=== PATIENT | male | born 1930 | race African-American/Black ===

== ENCOUNTER 2018-09-17 20:35 | Emergency (ER) | payer MEDICARE, OTHER ==
[~2018-09-17] VITALS: Ht 182.9 cm; Wt 95.3 kg
[2018-09-17 20:35] VITALS: BP 148/77
[~2018-09-17 20:35] MED LIST: AMLO2.5T5 PO; ASPI-482 PO; CHOL200074 PO; FOLI1TAB16 PO; HYDR-2761 PO; LEVO150T5 PO; LEVO25TA4 PO; MULT-658 PO; OMEP40CA5 PO; SIMV10TA3 PO
[2018-09-17 21:38] LABS: BASO % 1 % (0-3); EOS # 0.2 x10^3/uL (0.0-0.7); EOS % 4 % (0-3); HEMATOCRIT 41.6 % (39.0-53.0); HEMOGLOBIN 14.1 g/dL (13.0-17.5); LYMPH # 2.4 x10^3/uL (1.0-4.8); LYMPH % 46 % (24-48); MEAN CORPUSCULAR HEMOGLOBIN 29 pg (25-35); MEAN CORPUSCULAR HGB CONC 34 g/dL (31-37); MEAN CORPUSCULAR VOLUME 86 fL (79-100); MONO # 0.4 x10^3/uL (0.0-1.1); MONO % 9 % (0-9); NEUT # 2.1 x10^3uL (1.8-7.7); NEUT % 40 % (31-73); PLATELET COUNT 176 x10^3/uL (140-400); RED BLOOD COUNT 4.81 x10^6/uL (4.30-5.70); RED CELL DISTRIBUTION WIDTH 14.4 % (11.5-14.5); WHITE BLOOD COUNT 5.2 x10^3/uL (4.0-11.0)
[2018-09-17 21:46] LABS: PROTHROMBIN TIME PATIENT 13.3 SEC (11.7-14.0)
[2018-09-17] MEDS ORDERED: IV NORMAL SALINE 1000ML BAG 1,000 ML IV ONE (22:00)
[2018-09-17 22:13] LABS: BILIRUBIN,URINE NEGATIVE (NEG); CLARITY,URINE CLOUDY; COLOR,URINE YELLOW; NITRITE,URINE NEGATIVE (NEG); PROTEIN,URINE NEGATIVE (NEG-TRACE); UROBILINOGEN,URINE 0.2 mg/dL (0.2 mg/dL)
[2018-09-17 22:21] LABS: BACTERIA,URINE 0 /HPF (0-FEW); RBC,URINE 0 /HPF (0-2); SQUAMOUS EPITHELIAL CELL,UR FEW /LPF; WBC,URINE 0 /HPF (0-4)
--- NOTE | 2018-09-17 22:21 | RAD ---
AP chest x-ray COMPARISON: Chest x-ray October 06, 2006. HISTORY: Right upper extremity weakness. FINDINGS: Heart size normal. 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 No pneumothorax. No pleural effusions. Mild coarse interstitial markings at the lung bases new from the prior exam. Bones are unremarkable. IMPRESSION: Lower lobe interstitial thickening may represent mild interstitial edema, atypical infection such as viral pneumonitis or interstitial lung disease. 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 Electronically signed by: Rikki Robles MD (09/17/2018 10:18 PM) [facility]
--- NOTE | 2018-09-17 22:39 | RAD ---
PQRS Compliance statement: One or more of the following individualized dose reduction techniques were utilized for this examination: 1. Automated exposure control. 2. Adjustment of the mA and/or kV according to patient size. 3. Use of iterative reconstruction technique. Indication:Left arm weakness. TECHNIQUE: CT head without IV contrast COMPARISON: None FINDINGS: There is a wedge-shaped area of encephalomalacia in the left frontal lobe approximately measuring 3.6 x 2.3 cm. No pathologic extra-axial or intra-axial fluid collection. The ventricles and basal cisterns are within normal limits. No acute intracranial bleed. Orbits are within normal limits. No suspicious calvarial lesion. The paranasal sinuses and mastoid air cells are clear. 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 Surrounding acute infarct is not ruled out. If concern for acute ischemic stroke is high, please consider MRI brain. Critical findings were identified on 09/17/2018 10:31 PM, read back and verified with Dr. Howe on 09/17/2018 10:[address] Chuck Kruse DO. Electronically signed by: Chuck Kruse DO (09/17/2018 10:37 PM) [facility]
[2018-09-17 22:51] LABS: CALCIUM 9.3 mg/dL (8.5-10.1); CREATININE 1.1 mg/dL (0.7-1.3); GFR 76.6; POTASSIUM 3.8 mmol/L (3.5-5.1)
[2018-09-17 22:57] LABS: ALBUMIN 3.4 g/dL (3.4-5.0); ALBUMIN/GLOBULIN RATIO 0.8 (1.0-1.7); MAGNESIUM 2.3 mg/dL (1.8-2.4); TOTAL BILIRUBIN 0.4 mg/dL (0.2-1.0); TOTAL PROTEIN 7.5 g/dL (6.4-8.2)
--- NOTE | 2018-09-17 23:58 | PHYS DOC ---
Past Medical History Past Medical History: Hypertension, Hypothyroid Past Surgical History: Other Additional Past Surgical Histo: PROSTATECTOMY Smoking: Quit Greater Than 1 Year Alcohol Use: None Drug Use: None Adult General Chief Complaint Chief Complaint: WEAKNESS/GENERALIZED HPI HPI Patient is an 88 year old male who presents with weakness in right arm. Last night before he went to sleep he noticed numbness and tingling in right arm as well as more weakness than normal. He went to sleep and noticed that it was no there again this morning when he woke up due to his history of stroke he decided to come to the emergency department to get evaluated. He says the numbness and tingling is throughout his entire right arm and comes and goes throughout the day he still feels sensation in his right arm. He noticed that he feels increased weakness in his right arm and is needing to help for basic things like opening the refrigerator. Nothing makes it worse or better. Otherwise he feels healthy with no weakness in any other extremities. Review of Systems Review of Systems Constitutional: Denies fever or chills Eyes: Denies redness or eye pain HENT: Denies nasal congestion or sore throat Respiratory: Reports cough, denies shortness of breath Cardiovascular: Reports chest pain, denies palpitations GI: Denies abdominal pain, nausea, or vomiting : Denies dysuria or hematuria Musculoskeletal: Denies back pain or joint pain Integument: Denies rash or skin lesions Neurologic: Denies headache or sensory changes. Reports right arm weakness Complete systems were reviewed and found to be within normal limits, except as documented in this note. Current Medications Current Medications Current Medications Medications (Trade) Dose Ordered Sig/Benny Start Time Stop Time Status Last Admin Dose Admin Sodium Chloride 1,000 ml @ 1,000 mls/hr 1X ONCE 09/17/18 22:00 09/17/18 22:59 DC 09/17/18 22:00 1,000 MLS/HR Allergies Allergies Allergies Coded Allergies Type Severity Reaction Last Updated Verified No Known Drug Allergies 07/13/13 No Physical Exam Physical Exam Constitutional: Well developed, well nourished, no acute distress, non-toxic appearance HENT: Normocephalic, atraumatic, oropharynx moist Eyes: PERRL, EOMI, conjunctiva normal, no discharge Neck: Normal range of motion, no tenderness, supple Cardiovascular: Heart rate normal, regular rhythm Lungs & Thorax: Bilateral breath sounds clear to auscultation, no wheezing Abdomen: Soft, no tenderness Skin: Warm, dry, no erythema, no rash Back: No tenderness, no CVA tenderness Extremities: No tenderness, ROM intact, no edema Neurologic: Alert and oriented X 3, normal sensory function, no focal deficits noted, muscle strength 5/5 in bilateral upper extremity and left lower extremity, 4/5 in right lower extremity. Psychologic: Affect normal, judgement normal, mood normal Current Patient Data Vital Signs Vital Signs Date Time Temp Pulse Resp B/P (MAP) Pulse Ox O2 Delivery O2 Flow Rate FiO2 09/17/18 20:35 97.7 83 16 148/77 (100) 97 Room Air 97.7 Lab Values Laboratory Tests Test 09/17/18 20:53 09/17/18 22:00 09/17/18 22:30 White Blood Count 5.2 x10^3/uL (4.0-11.0) Red Blood Count 4.81 x10^6/uL (4.30-5.70) Hemoglobin 14.1 g/dL (13.0-17.5) Hematocrit 41.6 % (39.0-53.0) Mean Corpuscular Volume 86 fL (79-100) Mean Corpuscular Hemoglobin 29 pg (25-35) Mean Corpuscular Hemoglobin Concent 34 g/dL (31-37) Red Cell Distribution Width 14.4 % (11.5-14.5) Platelet Count 176 x10^3/uL (140-400) Neutrophils (%) (Auto) 40 % (31-73) Lymphocytes (%) (Auto) 46 % (24-48) Monocytes (%) (Auto) 9 % (0-9) Eosinophils (%) (Auto) 4 % (0-3) H Basophils (%) (Auto) 1 % (0-3) Neutrophils # (Auto) 2.1 x10^3uL (1.8-7.7) Lymphocytes # (Auto) 2.4 x10^3/uL (1.0-4.8) Monocytes # (Auto) 0.4 x10^3/uL (0.0-1.1) Eosinophils # (Auto) 0.2 x10^3/uL (0.0-0.7) Basophils # (Auto) 0.0 x10^3/uL (0.0-0.2) Prothrombin Time 13.3 SEC (11.7-14.0) Prothrombin Time INR 1.0 (0.8-1.1) PTT 24 SEC (24-38) Urine Collection Type Unknown Urine Color Yellow Urine Clarity Cloudy Urine pH 7.0 Urine Specific Boyds 1.010 Urine Protein Negative mg/dL (NEG-TRACE) Urine Glucose (UA) Negative mg/dL (NEG) Urine Ketones (Stick) Negative mg/dL (NEG) Urine Blood Negative (NEG) Urine Nitrite Negative (NEG) Urine Bilirubin Negative (NEG) Urine Urobilinogen Dipstick 0.2 mg/dL (0.2 mg/dL) Urine Leukocyte Esterase Negative (NEG) Urine RBC 0 /HPF (0-2) Urine WBC 0 /HPF (0-4) Urine Squamous Epithelial Cells Few /LPF Urine Bacteria 0 /HPF (0-FEW) Sodium Level 143 mmol/L (136-145) Potassium Level 3.8 mmol/L (3.5-5.1) Chloride Level 110 mmol/L (98-107) H Carbon Dioxide Level 29 mmol/L (21-32) Anion Gap 4 (6-14) L Blood Urea Nitrogen 16 mg/dL (8-26) Creatinine 1.1 mg/dL (0.7-1.3) Estimated GFR (Cockcroft-Gault) 76.6 BUN/Creatinine Ratio 15 (6-20) Glucose Level 96 mg/dL (70-99) Calcium Level 9.3 mg/dL (8.5-10.1) Magnesium Level 2.3 mg/dL (1.8-2.4) Total Bilirubin 0.4 mg/dL (0.2-1.0) Aspartate Amino Transferase (AST) 23 U/L (15-37) Alanine Aminotransferase (ALT) 24 U/L (16-63) Alkaline Phosphatase 107 U/L (46-116) Creatine Kinase 358 U/L (39-308) H Creatine Kinase MB (Mass) 4.4 ng/mL (0.0-3.6) H Creatine Kinase MB Relative Index 1.2 % (0-4) Troponin I Quantitative < 0.017 ng/mL (0.000-0.055) Total Protein 7.5 g/dL (6.4-8.2) Albumin 3.4 g/dL (3.4-5.0) Albumin/Globulin Ratio 0.8 (1.0-1.7) L Laboratory Tests 09/17/18 20:53 Laboratory Tests 09/17/18 22:30 EKG EKG 09/17/18 at 2042: Irregular rhythm, no P wave found. [address] segment elevation. Leftward axis. [] Radiology/Procedures Radiology/Procedures PROCEDURE: PORTABLE CHEST 1V AP chest x-ray COMPARISON: Chest x-ray October 06, 2006. HISTORY: Right upper extremity weakness. FINDINGS: Heart size normal. 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 No pneumothorax. No pleural effusions. Mild coarse interstitial markings at the lung bases new from the prior exam. Bones are unremarkable. IMPRESSION: Lower lobe interstitial thickening may represent mild interstitial edema, atypical infection such as viral pneumonitis or interstitial lung disease. 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 Electronically signed by: Franco Robles MD (09/17/2018 10:18 PM) [facility] DICTATED and SIGNED BY: FRANCO ROBLES MD DATE: 09/17/182217 PROCEDURE: CT HEAD WO CONTRAST PQRS Compliance statement: One or more of the following individualized dose reduction techniques were utilized for this examination: 1. Automated exposure control. 2. Adjustment of the mA and/or kV according to patient size. 3. Use of iterative reconstruction technique. Indication:Left arm weakness. TECHNIQUE: CT head without IV contrast COMPARISON: None FINDINGS: There is a wedge-shaped area of encephalomalacia in the left frontal lobe approximately measuring 3.6 x 2.3 cm. No pathologic extra-axial or intra-axial fluid collection. The ventricles and basal cisterns are within normal limits. No acute intracranial bleed. Orbits are within normal limits. No suspicious calvarial lesion. The paranasal sinuses and mastoid air cells are clear. 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 Surrounding acute infarct is not ruled out. If concern for acute ischemic stroke is high, please consider MRI brain. Critical findings were identified on 09/17/2018 10:31 PM, read back and verified with Dr. León on 09/17/2018 10:[address] Chuck Kruse DO. Electronically signed by: Chuck Kruse DO (09/17/2018 10:37 PM) [facility] DICTATED and SIGNED BY: CHUCK KRUSE DO DATE: 09/17/182236[] Course & Med Decision Making Course & Med Decision Making Pertinent Labs and Imaging studies reviewed. (See chart for details) Mr. Coronado is an 88-year-old male with a past medical history of 3 strokes who presents with new onset right arm weakness. Last night he noticed numbness and tingling in his right arm as well as increased weakness. On physical exam his upper extremity strength is 5/5 bilaterally and sensation is intact. The remainder of his neuro exam was at his baseline per patient. Labs and chest x- ray did not indicate an infection. CT head showed area of chronic infarct and could not rule out possible acute infarct. Clinical suspicion for acute stroke is low based on physical exam findings therefore no further evaluation was completed. Patient stable for discharge with outpatient follow-up with PCP. Discussed findings and plan with patient, who acknowledge understanding and agreement. Dragon Disclaimer Dragon Disclaimer This electronic medical record was generated, in whole or in part, using a voice recognition dictation system. Departure Departure Impression: Primary Impression: Weakness Disposition: 01 HOME, SELF-CARE Condition: STABLE Referrals: CHRIS MAR MD (PCP) Patient Instructions: Weakness, [id number] NIHSS Stroke Scale NIH Stroke Scale: NIH Stroke Scale Response (Comments) Value Level of Consciousness: 0 Alert/Responsive 0 LOC Questions: 0 Answers both correctly 0 LOC Commands: 0 Performs both tasks 0 Best Gaze: 0 Normal 0 Visual: 0 No visual loss 0 Facial Palsy: 0 Normal, symmetrical 0 Motor - Left Arm 0 No drift 0 Motor - Right Arm 1 Drifts but can hold 1 Motor - Left Leg 0 No drift 0 Motor: Right Leg 0 No drift 0 Limb Ataxia: 0 Absent 0 Sensory: 0 No loss 0 Best Language: 1 Mild to mod aphasia 1 Dysathria: 0 Normal 0 Extinction and Inattention: 0 Normal 0 Total 2 LEÓNALAINA DO Sep 17, 2018 23:58
--- NOTE | 2018-09-18 09:51 | EKG ---
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
== END 2018-09-18 01:30 | disposition home or self-care (01) ==
LOC: ER 20:35
DX: R53.1 Weakness (principal); R20.0 Anesthesia of skin; R07.89 Other chest pain; R05 Cough; R51 Headache; I10 Essential (primary) hypertension; E03.9 Hypothyroidism, unspecified; Z87.891 Personal history of nicotine dependence; Z86.73 Personal history of transient ischemic attack (TIA), and cerebral infarction without residual deficits
CPT/HCPCS: 36415; 70450; 71045; 80053; 81001; 82553; 83735; 84484; 85025; 85610; 85730; 93005; 99285; J7030

== ENCOUNTER 2020-12-17 13:42 | Inpatient (IN) | payer MEDICARE, OTHER ==
[2020-12-17] VITALS (12 sets, daily range): BP systolic 111–172; BP diastolic 53–78
[~2020-12-17] VITALS: Ht 182.9 cm; Wt 91.1 kg
[~2020-12-17 13:42] MED LIST changes: -OMEP40CA5 PO; +OMEP40CA7 PO; +SIMV10TA15 PO; -SIMV10TA3 PO
[2020-12-17] MEDS ORDERED: DEXTROSE 50% 25 GM / 50ML DISP.SYRIN. IV ONE ×2 (13:54→14:00)
[2020-12-17] MEDS ORDERED: ATROPINE 1 MG/10 ML DISP.SYRINGE. IV ONE ×2 (14:00→14:15)
[2020-12-17 14:14] LABS: BASO % 1 % (0-3); EOS # 0.3 x10^3/uL (0.0-0.7); EOS % 6 % (0-3); HEMATOCRIT 30.4 % (39.0-53.0); HEMOGLOBIN 9.6 g/dL (13.0-17.5); LYMPH # 1.4 x10^3/uL (1.0-4.8); LYMPH % 24 % (24-48); MEAN CORPUSCULAR HEMOGLOBIN 24 pg (25-35); MEAN CORPUSCULAR HGB CONC 32 g/dL (31-37); MEAN CORPUSCULAR VOLUME 74 fL (79-100); MONO # 0.4 x10^3/uL (0.0-1.1); MONO % 7 % (0-9); NEUT # 3.6 x10^3/uL (1.8-7.7); NEUT % 63 % (31-73); PLATELET COUNT 260 x10^3/uL (140-400); RED BLOOD COUNT 4.09 x10^6/uL (4.30-5.70); RED CELL DISTRIBUTION WIDTH 17.9 % (11.5-14.5); WHITE BLOOD COUNT 5.8 x10^3/uL (4.0-11.0)
[2020-12-17 14:19] LABS: CALCIUM 8.9 mg/dL (8.5-10.1); CREATININE 1.8 mg/dL (0.7-1.3); GFR 43.2
[2020-12-17 14:25] LABS: ALBUMIN 2.8 g/dL (3.4-5.0); ALBUMIN/GLOBULIN RATIO 0.6 (1.0-1.7); MAGNESIUM 2.5 mg/dL (1.8-2.4); TOTAL BILIRUBIN 0.3 mg/dL (0.2-1.0); TOTAL PROTEIN 7.2 g/dL (6.4-8.2)
[2020-12-17] MEDS ORDERED: IV NORMAL SALINE 1000ML BAG 1,000 ML IV ONE (14:30)
--- NOTE | 2020-12-17 14:38 | EKG ---
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
--- NOTE | 2020-12-17 14:53 | RAD ---
EXAMINATION: Chest and pelvis radiographs. VIEWS: Single view of the chest and single view of the pelvis. COMPARISON: 09/17/2018 INDICATION:89 years, Male, weakness. FINDINGS: Normal cardiomediastinal silhouette. Diffuse bilateral interstitial reticulations. No pleural effusio n or pneumothorax. No acute osseous process. Pelvis: No acute fracture, dislocation or subluxation. Surgical clips in the pelvis. Degenerative mirza nges in the lower lumbar spine. Sacroiliac joints are unremarkable. No soft tissue swelling. IMPRESSION: 1. Diffuse bilateral interstitial reticulations suspicious for chronic interstitial lung disease vers us pulmonary edema. 2. No acute osseous process in the pelvis. Electronically signed by: Linda Cloud MD (12/17/2020 2:51 PM) [facility]
--- NOTE | 2020-12-17 15:56 | RAD ---
EXAM: CT head and cervical spine without contrast INDICATION: Weakness, history of fall COMPARISON: CT head 09/17/2018 TECHNIQUE: Axial CT imaging through the head and cervical spine without intravenous contrast. Sagitta l and coronal reformats were obtained. One or more of the following individualized dose reduction techniques were utilized for this examinat ion: 1. Automated exposure control 2. Adjustment of the mA and/or kV according to patient size 3. Use of iterative reconstruction technique. FINDINGS: CT head: The ventricles and sulci are moderately enlarged, unchanged. There is unchanged encephalomalacia in t he left frontal lobe. Mild periventricular and deep white matter hypoattenuation elsewhere. No intrac ranial hemorrhage or acute infarct. There is an unchanged 6 mm calcified extra-axial mass at the supe rior left frontal lobe, likely a meningioma. The calvarium is intact. Paranasal sinuses and mastoid a ir cells are clear. Globes and orbits are intact.. CT cervical spine: There is slight reversal of cervical lordosis. Severe disc space narrowing throughout the cervical sp ine with osseous bridging across disc spaces at C3-C4, C4-C5, C5-C6, and C6-C7. There is bulky bridgi ng anterior ossification at multiple levels, greatest at C3-C4, C4-C5, C5-C6. Partial bridging bulky anterior osteophytes at the remaining levels. There are posterior disc osteophyte complexes throughou t the cervical spine. Severe bilateral foraminal narrowing at C6-C7 and C7-T1 mild facet arthrosis in the lower cervical spine. Prevertebral soft tissues normal. There is at least moderate canal narrowi ng at multiple levels. IMPRESSION: CT HEAD: 1. No acute intracranial abnormality. 2. Unchanged moderate volume loss and left frontal encephalomalacia. 3. 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 CT CERVICAL SPINE: 1. No definite acute fracture of the cervical spine. 2. 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 There is hoop coiler oralia-appearing fragmentation of anterior osteophytes at C6-C7 but no definite acute fracture. 3. Probable moderate canal narrowing at multiple levels. 4. Given the above findings, if there is clinical concern for occult fracture or ligamentous injury, MRI could be obtained to better evaluate. Electronically signed by: Sondra Meyers MD (12/17/2020 3:53 PM) [id number]
[2020-12-17] MEDS ORDERED: ONDANSETRON PF 4 MG/2 ML VIAL. IVP PRN ×2 (16:45→17:30)
--- NOTE | 2020-12-17 16:58 | PHYS DOC ---
Past Medical History Past Medical History: Anemia (Iron Deficency), GERD, High Cholesterol, Hypertension, Hypothyroid, Renal Disease, TIA Additional Past Medical Histor: A-FLUTTER,MULTIPLE MYELOMA, cognitive communication deficit Past Medical History Limited secondary to "cognitive communication deficit" and altered mental status Past Surgical History: Other Additional Past Surgical Histo: PROSTATECTOMY Past Surgical History Limited secondary to "cognitive communication deficit" and altered mental status Smoking Status: Former Smoker Alcohol Use: None Drug Use: None Social History Limited secondary to "cognitive communication deficit" and altered mental status General Adult EDM: Chief Complaint: SYNCOPE HPI: HPI: Patient is a 89-year-old male [facility] Patient reportedly found by nursing staff lying on the floor beside the toilet. Patient with increased altered mental status. Patient does have a history of cognitive community of delay. Patient found by EMS with heart rate in the 30s and blood pressure of 55 over 30s. EMS also reports patient's O2 sat down to 90%. EMS placed patient on supplemental O2 at 4 L nasal cannula with interval i mprovement. Patient denies any pain. EMS noted patient with abrasions to bilateral knees. Denies known exposure to COVID-19. History of present illness limited secondary to altered mental status and history of baseline cognitive delay. Review of Systems: Review of Systems: Constitutional: Denies fever or chills HENT: Denies epistaxis Integument: Reports abrasions to bilateral knees Neurologic: Denies headache; reports altered mental status and generalized w eakness Review of systems limited secondary to "cognitive communication deficit" Heart Score: C/O Chest Pain: N/A Current Medications: Current Medications Medications (Trade) Dose Ordered Sig/Benny Start Time Stop Time Status Last Admin Dose Admin Atropine Sulfate (ATROPINE 1mg SYRINGE) 1 mg 1X ONCE 12/17/20 14:15 12/17/20 14:16 DC 12/17/20 14:16 1 MG Dextrose (Dextrose 50%-Water Syringe) 25 gm STK-MED ONCE 12/17/20 13:54 12/17/20 13:56 DC Dobutamine HCl/ Dextrose 250 ml @ 5.724 mls/ hr 1X ONCE 12/17/20 14:30 12/19/20 10:35 12/17/20 14:55 5.724 MLS/HR Sodium Chloride 1,000 ml @ 1,000 mls/hr 1X ONCE 12/17/20 14:30 12/17/20 15:29 DC 12/17/20 13:59 1,000 MLS/HR Allergies: Allergies: Allergies Coded Allergies Type Severity Reaction Last Updated Verified No Known Drug Allergies 07/13/13 No Physical Exam: PE: Constitutional: Elderly, ill appearing HENT: Normocephalic, atraumatic Eyes: Conjunctiva normal, no discharge Neck: C-collar placed upon arrival, supple Lungs & Thorax: No respiratory distress, equal chest rise and fall Cardiovascular: Bradycardic rhythm, CR >3 sec Abdomen: Soft, no tenderness Skin: Warm, dry, no erythema, abrasions to bilateral anterior knees Extremities: No deformity, 2+ BLE edema Neurologic: Alert, no focal deficits noted Psychologic: Affect flat, judgment abnormal Current Patient Data: Labs: Laboratory Tests Test 12/17/20 13:52 12/17/20 13:55 12/17/20 13:58 12/17/20 15:05 Glucose (Fingerstick) 31 mg/dL (70-99) *L 119 mg/dL (70-99) H White Blood Count 5.8 x10^3/uL (4.0-11.0) Red Blood Count 4.09 x10^6/uL (4.30-5.70) L Hemoglobin 9.6 g/dL (13.0-17.5) L Hematocrit 30.4 % (39.0-53.0) L Mean Corpuscular Volume 74 fL (79-100) L Mean Corpuscular Hemoglobin 24 pg (25-35) L Mean Corpuscular Hemoglobin Concent 32 g/dL (31-37) Red Cell Distribution Width 17.9 % (11.5-14.5) H Platelet Count 260 x10^3/uL (140-400) Neutrophils (%) (Auto) 63 % (31-73) Lymphocytes (%) (Auto) 24 % (24-48) Monocytes (%) (Auto) 7 % (0-9) Eosinophils (%) (Auto) 6 % (0-3) H Basophils (%) (Auto) 1 % (0-3) Neutrophils # (Auto) 3.6 x10^3/uL (1.8-7.7) Lymphocytes # (Auto) 1.4 x10^3/uL (1.0-4.8) Monocytes # (Auto) 0.4 x10^3/uL (0.0-1.1) Eosinophils # (Auto) 0.3 x10^3/uL (0.0-0.7) Basophils # (Auto) 0.0 x10^3/uL (0.0-0.2) Sodium Level 145 mmol/L (136-145) Potassium Level 4.0 mmol/L (3.5-5.1) Chloride Level 111 mmol/L (98-107) H Carbon Dioxide Level 26 mmol/L (21-32) Anion Gap 8 (6-14) Blood Urea Nitrogen 20 mg/dL (8-26) Creatinine 1.8 mg/dL (0.7-1.3) H Estimated GFR (Cockcroft-Gault) 43.2 BUN/Creatinine Ratio 11 (6-20) Glucose Level 133 mg/dL (70-99) H Calcium Level 8.9 mg/dL (8.5-10.1) Magnesium Level 2.5 mg/dL (1.8-2.4) H Total Bilirubin 0.3 mg/dL (0.2-1.0) Aspartate Amino Transferase (AST) 45 U/L (15-37) H Alanine Aminotransferase (ALT) 41 U/L (16-63) Alkaline Phosphatase 91 U/L (46-116) Creatine Kinase 1086 U/L (39-308) H Creatine Kinase MB (Mass) 6.8 ng/mL (0.0-3.6) H Creatine Kinase MB Relative Index 0.6 % (0-4) Troponin I Quantitative 0.020 ng/mL (0.000-0.055) TF-Yvw-A-Type Natriuretic Peptide 162 pg/mL (0-449) Total Protein 7.2 g/dL (6.4-8.2) Albumin 2.8 g/dL (3.4-5.0) L Albumin/Globulin Ratio 0.6 (1.0-1.7) L Lactic Acid Level 1.4 mmol/L (0.4-2.0) Test 12/17/20 16:12 SARS-CoV-2 Antigen (Rapid) Negative (NEGATIVE) Laboratory Tests 12/17/20 13:58 Laboratory Tests 12/17/20 13:58 Vital Signs: Vital Signs Date Time Temp Pulse Resp B/P (MAP) Pulse Ox O2 Delivery O2 Flow Rate FiO2 12/17/20 13:42 96.8 34 20 62/33 (43) 100 Room Air 96.8 EKG: EKG: @1348 Severe sinus bradycardia at 35bpm, NO ST elevation, QRS 88ms, QT/QTc 602/460ms, nonspecific t wave inversion V3 Radiology/Procedures: Radiology/Procedures: PROCEDURE: PORTABLE CHEST 1V EXAMINATION: Chest and pelvis radiographs. VIEWS: Single view of the chest and single view of the pelvis. COMPARISON: 09/17/2018 INDICATION:89 years, Male, weakness. FINDINGS: Normal cardiomediastinal silhouette. Diffuse bilateral interstitial reticulations. No pleural effusion or pneumothorax. No acute osseous process. Pelvis: No acute fracture, dislocation or subluxation. Surgical clips in the pelvis. Degenerative changes in the lower lumbar spine. Sacroiliac joints are unremarkable. No soft tissue swelling. IMPRESSION: 1. Diffuse bilateral interstitial reticulations suspicious for chronic int erstitial lung disease versus pulmonary edema. 2. No acute osseous process in the pelvis. Electronically signed by: Linda Cloud MD (12/17/2020 2:51 PM) [facility] PROCEDURE: CT HEAD AND CERVICAL SPINE WO EXAM: CT head and cervical spine without contrast INDICATION: Weakness, history of fall COMPARISON: CT head 09/17/2018 TECHNIQUE: Axial CT imaging through the head and cervical spine without intravenous contrast. Sagittal and coronal reformats were obtained. One or more of the following individualized dose reduction techniques were utilized for this examination: 1. Automated exposure control 2. Adjustment of the mA and/or kV according to patient size 3. Use of iterative reconstruction technique. FINDINGS: CT head: The ventricles and sulci are moderately enlarged, unchanged. There is unchanged encephalomalacia in the left frontal lobe. Mild periventricular and deep white matter hypoattenuation elsewhere. No intracranial hemorrhage or acute infarct. There is an unchanged 6 mm calcified extra-axial mass at the superior left frontal lobe, likely a meningioma. The calvarium is intact. Paranasal sinuses and mastoid air cells are clear. Globes and orbits are intact.. CT cervical spine: There is slight reversal of cervical lordosis. Severe disc space narrowing throughout the cervical spine with osseous bridging across disc spaces at C3-C4, C4-C5, C5-C6, and C6-C7. There is bulky bridging anterior ossification at multiple levels, greatest at C3-C4, C4-C5, C5-C6. Partial bridging bulky anterior osteophytes at the remaining levels. There are posterior disc osteophyte complexes throughout the cervical spine. Severe bilateral foraminal narrowing at C6-C7 and C7-T1 mild facet arthrosis in the lower cervical spine. Prevertebral soft tissues normal. There is at least moderate canal narrowing at multiple levels. IMPRESSION: CT HEAD: 1. No acute intracranial abnormality. 2. Unchanged moderate volume loss and left frontal encephalomalacia. 3. 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 CT CERVICAL SPINE: 1. No definite acute fracture of the cervical spine. 2. 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 There is chronic-appearing fragmentation of anterior osteophytes at C6-C7 but no definite acute fracture. 3. Probable moderate canal narrowing at multiple levels. 4. Given the above findings, if there is clinical concern for occult fracture or ligamentous injury, MRI could be obtained to better evaluate. Electronically signed by: Sondra Meyers MD (12/17/2020 3:53 PM) [id number] PROCEDURE: PELVIS EXAMINATION: Chest and pelvis radiographs. VIEWS: Single view of the chest and single view of the pelvis. COMPARISON: 09/17/2018 INDICATION:89 years, Male, weakness. FINDINGS: Normal cardiomediastinal silhouette. Diffuse bilateral interstitial reticulations. No pleural effusion or pneumothorax. No acute osseous process. Pelvis: No acute fracture, dislocation or subluxation. Surgical clips in the pelvis. Degenerative changes in the lower lumbar spine. Sacroiliac joints are unremarkable. No soft tissue swelling. IMPRESSION: 1. Diffuse bilateral interstitial reticulations suspicious for chronic interstitial lung disease versus pulmonary edema. 2. No acute osseous process in the pelvis. Electronically signed by: Linda Cloud MD (12/17/2020 2:51 PM) [facility] PROCEDURE: CHEST AP ONLY XR CHEST 1V History: Reason: central line placement, eval for position / Spl. Instructions: / History: Comparison: December 17, 2020 Findings: Interval placement right IJ central line with tip projecting over the cavoatrial junction. No pneumothorax. Mild interstitial thickening, unchanged. No pleural effusion. Unchanged heart size. Glenohumeral DJD. Impression: 1. Interval placement right IJ central line. No pneumothorax. Electronically signed by: Brandon Garcia DO (12/17/2020 6:57 PM) [facility] Course & Med Decision Making: Course & Med Decision Making Pertinent Labs and Imaging studies reviewed. (See chart for details) Patient presents via EMS with bradycardia and hypotension with altered mental status above patient's baseline cognitive delay. Patient noted to have hypoglycemia which was addressed immediately. C-collar placed upon arrival as patient was found next to toilet this morning. A CT head/cervical spine without acute process. Chest x-ray stable. Pelvis x-ray also obtained without acute fracture. Other labs obtained and posted to chart. CPK elevated. IVF hydration given. Patient requiring blood pressure and heart rate support. Dobutamine initially initiated. Central line was placed to right IJ. Discussed case with Dr. Stanton (cardiology) who requests switch to Dopamine gtt. Patient requiring admission for further evaluation and treatment. Discussed with Dr. Godinez (hospitalist) who is in agreement with ICU admission. Discussed findings and plan with family, who acknowledge understanding and agreement. Ricarda Disclaimer: Ricarda Disclaimer: This electronic medical record was generated, in whole or in part, using a voice recognition dictation system. Central Line Central Line : Central Line Lumen: triple Central Line Procedure: sterile drapes applied, sterile dressing applied Central Line Postion: internal jugular (R) Anesthesia: Lidocaine cc's of anesthesia: 3 Complications: none Central Line Post Position: sutured, good blood return, position confirmed w/ CXR Progress Written consent obtained from family. Time out performed. Hand hygiene utilized. Sterile attire donned. Wound cleaned with ChloraPrep. Sterile drapes applied. Anesthesia obtained via a 25-gauge hypodermic needle with (3) mL's of lidocaine 1%. Triple lumen central line successfully placed via Seldinger technique under bedside ultrasound guidance. Line secured with sutures. Sterile dressing applied. Patient tolerated procedure well and without difficulty. Departure Departure Impression: Primary Impression: Cardiogenic shock Additional Impressions: Elevated CPK Hypoglycemia Disposition: ADMITTED INPATIENT Admitting Physician: MILDRED Griggs) Condition: GUARDED Referrals: CHRIS MAR MD (PCP) Scripts Levofloxacin (LEVOFLOXACIN) 500 Mg Tablet 500 MG PO DAILY06 for Pseudomonas UTI for 10 Days, #10 TAB Prov: RIFFEL,CHRISTOPHER S MD 12/21/20 Critical Care Time Critical care time was 30 minutes which includes time at bedside, spent in discussion of patient's care with specialists and/or family members, with interpretation of laboratory and/or radiological studies and is exclusive of procedures. ALAINA LEÓN DO Dec 17, 2020 16:58
[2020-12-17 17:03] LABS: BILIRUBIN,URINE NEGATIVE (NEG); CLARITY,URINE CLEAR; COLOR,URINE YELLOW; NITRITE,URINE NEGATIVE (NEG); PROTEIN,URINE NEGATIVE (NEG-TRACE); UROBILINOGEN,URINE 0.2 mg/dL (0.2 mg/dL)
--- NOTE | 2020-12-17 17:10 | PDOC1 ---
History and Physical Date of Admission Date of Admission DATE: 12/17/20 TIME: 16:42 Identification/Chief Complaint Chief Complaint AMS, hypotension, bradycardia Source Source: Chart review History of Present Illness History of Present Illness Patient is a 89-year-old male with past medical history CVA, TIA, hypothyroidism, atrial flutter, HTN, HLD, anemia, GERD, multiple myeloma, who [facility] after being found down next to his toilet. Upon EMS arrival he was noted to be altered with blood pressure 55/30 mmHg and heart rate in the 30s. Upon arrival in the ED he was saturating 100% on room air. Chest x-ray showed bilateral interstitial opacities, concerning for chronic interstitial lung disease versus pulmonary edema. Pelvis x-ray showed no acute osseous process in the pelvis. CT head and cervical spine showed no acute intracranial abnormality and no definite acute process of the cervical spine. Labs on admission showed WBC 5.8, hemoglobin 9.6, hematocrit 30.4, creatinine 1.8, CBG 133, troponin 0.020, CK 1086, albumin 2.8. His rapid COVID- 19 was negative. He was placed on dobutamine infusion with improvement in heart rate and blood pressure. He was recently prescribed Keflex for UTI. Reportedly he is DNR. Will admit patient to ICU with cardiology consult for further medical management. Past Medical History Cardiovascular: HTN, Hyperlipidemia Pulmonary: No pertinent hx CENTRAL NERVOUS SYSTEM: Other GI: Diverticulosis Heme/Onc: Sickle cell trait Hepatobiliary: Cholelithiasis Psych: No pertinent hx Musculoskeletal: low back pain Rheumatologic: No pertinent hx Infectious disease: No pertinent hx Renal/: Prostate Ca. Endocrine: No pertinent hx, Hypothyroidism Past Surgical History Past Surgical History: Hysterectomy Family History Family History: Other Social History Smoke: No ALCOHOL: none Drugs: None Current Medications Current Medications Current Medications Atropine Sulfate (ATROPINE 1mg SYRINGE) 0.5 mg 1X ONCE IV Last administered on 12/17/20at 14:02; Start 12/17/20 at 14:00; Stop 12/17/20 at 14:01; Status DC Dextrose (Dextrose 50%-Water Syringe) 25 gm 1X ONCE IV ; Start 12/17/20 at 14:00; Stop 12/17/20 at 13:56; Status DC Dextrose (Dextrose 50%-Water Syringe) 25 gm STK-MED ONCE IV ; Start 12/17/20 at 13:54; Stop 12/17/20 at 13:56; Status DC Atropine Sulfate (ATROPINE 1mg SYRINGE) 1 mg 1X ONCE IV Last administered on 12/17/20at 14:16; Start 12/17/20 at 14:15; Stop 12/17/20 at 14:16; Status DC Dobutamine HCl/ Dextrose 250 ml @ 5.724 mls/ hr 1X ONCE IV Last administered on 12/17/20at 14:55; Start 12/17/20 at 14:30; Stop 12/19/20 at 10:35 Sodium Chloride 1,000 ml @ 1,000 mls/hr 1X ONCE IV Last administered on 12/17/20at 13:59; Start 12/17/20 at 14:30; Stop 12/17/20 at 15:29; Status DC Active Scripts Active Reported Omeprazole 40 Mg Capsule. 1 Cap PO DAILY Folic Acid 1 Mg Tablet 1 Tab PO DAILY Amlodipine Besylate 2.5 Mg Tablet 1 Tab PO DAILY Levothyroxine Sodium 150 Mcg Tablet 1 Tab PO DAILY Hydrocodone-Apap 5-325 (Hydrocodone Bit/Acetaminophen) 1 Each Tablet 1 Each PO PRN Q4HRS PRN Aspir 81 (Aspirin) 81 Mg Tablet. 81 Mg PO DAILY Allergies Allergies: Coded Allergies: No Known Drug Allergies (Unverified , 07/13/13) ROS Review of System Reviewed with patient but unable to obtain at this time due to clinical condition Physical Exam Physical Exam General: Alert, Cooperative, No acute distress HEENT: PERRLA, EOMI Lungs: Decreased breath sounds bilaterally, Normal air movement Heart: Bradycardic, no murmurs Cardiovascular: S1, S2 Abdomen: Normal bowel sounds, Soft, No tenderness Extremities: 2+ bilateral lower extremity edema. No clubbing, No cyanosis Skin: No rashes, No significant lesion Neuro: Normal tone, Sensation intact Psych/Mental Status: Somnolent, lethargic. Vitals Vitals Vital Signs Date Time Temp Pulse Resp B/P (MAP) Pulse Ox O2 Delivery O2 Flow Rate FiO2 12/17/20 13:42 96.8 34 20 62/33 (43) 100 Room Air 96.8 Labs Labs Laboratory Tests Test 12/17/20 13:52 12/17/20 13:55 12/17/20 13:58 12/17/20 15:05 Glucose (Fingerstick) 31 mg/dL (70-99) 119 mg/dL (70-99) White Blood Count 5.8 x10^3/uL (4.0-11.0) Red Blood Count 4.09 x10^6/uL (4.30-5.70) Hemoglobin 9.6 g/dL (13.0-17.5) Hematocrit 30.4 % (39.0-53.0) Mean Corpuscular Volume 74 fL (79-100) Mean Corpuscular Hemoglobin 24 pg (25-35) Mean Corpuscular Hemoglobin Concent 32 g/dL (31-37) Red Cell Distribution Width 17.9 % (11.5-14.5) Platelet Count 260 x10^3/uL (140-400) Neutrophils (%) (Auto) 63 % (31-73) Lymphocytes (%) (Auto) 24 % (24-48) Monocytes (%) (Auto) 7 % (0-9) Eosinophils (%) (Auto) 6 % (0-3) Basophils (%) (Auto) 1 % (0-3) Neutrophils # (Auto) 3.6 x10^3/uL (1.8-7.7) Lymphocytes # (Auto) 1.4 x10^3/uL (1.0-4.8) Monocytes # (Auto) 0.4 x10^3/uL (0.0-1.1) Eosinophils # (Auto) 0.3 x10^3/uL (0.0-0.7) Basophils # (Auto) 0.0 x10^3/uL (0.0-0.2) Sodium Level 145 mmol/L (136-145) Potassium Level 4.0 mmol/L (3.5-5.1) Chloride Level 111 mmol/L (98-107) Carbon Dioxide Level 26 mmol/L (21-32) Anion Gap 8 (6-14) Blood Urea Nitrogen 20 mg/dL (8-26) Creatinine 1.8 mg/dL (0.7-1.3) Estimated GFR (Cockcroft-Gault) 43.2 BUN/Creatinine Ratio 11 (6-20) Glucose Level 133 mg/dL (70-99) Calcium Level 8.9 mg/dL (8.5-10.1) Magnesium Level 2.5 mg/dL (1.8-2.4) Total Bilirubin 0.3 mg/dL (0.2-1.0) Aspartate Amino Transf (AST/SGOT) 45 U/L (15-37) Alanine Aminotransferase (ALT/SGPT) 41 U/L (16-63) Alkaline Phosphatase 91 U/L (46-116) Creatine Kinase 1086 U/L (39-308) Creatine Kinase MB (Mass) 6.8 ng/mL (0.0-3.6) Creatine Kinase MB Relative Index 0.6 % (0-4) Troponin I Quantitative 0.020 ng/mL (0.000-0.055) UH-Ukn-F-Type Natriuretic Peptide 162 pg/mL (0-449) Total Protein 7.2 g/dL (6.4-8.2) Albumin 2.8 g/dL (3.4-5.0) Albumin/Globulin Ratio 0.6 (1.0-1.7) Lactic Acid Level 1.4 mmol/L (0.4-2.0) Test 12/17/20 16:12 SARS-CoV-2 Antigen (Rapid) Negative (NEGATIVE) Laboratory Tests Test 12/17/20 13:52 12/17/20 13:55 12/17/20 13:58 12/17/20 15:05 Glucose (Fingerstick) 31 mg/dL (70-99) 119 mg/dL (70-99) White Blood Count 5.8 x10^3/uL (4.0-11.0) Red Blood Count 4.09 x10^6/uL (4.30-5.70) Hemoglobin 9.6 g/dL (13.0-17.5) Hematocrit 30.4 % (39.0-53.0) Mean Corpuscular Volume 74 fL (79-100) Mean Corpuscular Hemoglobin 24 pg (25-35) Mean Corpuscular Hemoglobin Concent 32 g/dL (31-37) Red Cell Distribution Width 17.9 % (11.5-14.5) Platelet Count 260 x10^3/uL (140-400) Neutrophils (%) (Auto) 63 % (31-73) Lymphocytes (%) (Auto) 24 % (24-48) Monocytes (%) (Auto) 7 % (0-9) Eosinophils (%) (Auto) 6 % (0-3) Basophils (%) (Auto) 1 % (0-3) Neutrophils # (Auto) 3.6 x10^3/uL (1.8-7.7) Lymphocytes # (Auto) 1.4 x10^3/uL (1.0-4.8) Monocytes # (Auto) 0.4 x10^3/uL (0.0-1.1) Eosinophils # (Auto) 0.3 x10^3/uL (0.0-0.7) Basophils # (Auto) 0.0 x10^3/uL (0.0-0.2) Sodium Level 145 mmol/L (136-145) Potassium Level 4.0 mmol/L (3.5-5.1) Chloride Level 111 mmol/L (98-107) Carbon Dioxide Level 26 mmol/L (21-32) Anion Gap 8 (6-14) Blood Urea Nitrogen 20 mg/dL (8-26) Creatinine 1.8 mg/dL (0.7-1.3) Estimated GFR (Cockcroft-Gault) 43.2 BUN/Creatinine Ratio 11 (6-20) Glucose Level 133 mg/dL (70-99) Calcium Level 8.9 mg/dL (8.5-10.1) Magnesium Level 2.5 mg/dL (1.8-2.4) Total Bilirubin 0.3 mg/dL (0.2-1.0) Aspartate Amino Transf (AST/SGOT) 45 U/L (15-37) Alanine Aminotransferase (ALT/SGPT) 41 U/L (16-63) Alkaline Phosphatase 91 U/L (46-116) Creatine Kinase 1086 U/L (39-308) Creatine Kinase MB (Mass) 6.8 ng/mL (0.0-3.6) Creatine Kinase MB Relative Index 0.6 % (0-4) Troponin I Quantitative 0.020 ng/mL (0.000-0.055) UR-Rqs-D-Type Natriuretic Peptide 162 pg/mL (0-449) Total Protein 7.2 g/dL (6.4-8.2) Albumin 2.8 g/dL (3.4-5.0) Albumin/Globulin Ratio 0.6 (1.0-1.7) Lactic Acid Level 1.4 mmol/L (0.4-2.0) Test 12/17/20 16:12 SARS-CoV-2 Antigen (Rapid) Negative (NEGATIVE) Images Images PATIENT: SARA CORONADO ACCOUNT: [id number] : 1930 LOCATION: ER AGE: 89 SEX: M EXAM STATUS: REG ER ORD. PHYSICIAN: ALAINA LEÓN DO REASON: weakness PROCEDURE: PORTABLE CHEST 1V EXAMINATION: Chest and pelvis radiographs. VIEWS: Single view of the chest and single view of the pelvis. COMPARISON: 09/17/2018 INDICATION:89 years, Male, weakness. FINDINGS: Normal cardiomediastinal silhouette. Diffuse bilateral interstitial reticulations. No pleural effusion or pneumothorax. No acute osseous process. Pelvis: No acute fracture, dislocation or subluxation. Surgical clips in the pelvis. Degenerative changes in the lower lumbar spine. Sacroiliac joints are unremarkable. No soft tissue swelling. IMPRESSION: 1. Diffuse bilateral interstitial reticulations suspicious for chronic interstitial lung disease versus pulmonary edema. 2. No acute osseous process in the pelvis. PATIENT: SARA CORONADO ACCOUNT: [id number] : 1930 LOCATION: ER AGE: 89 SEX: M EXAM STATUS: REG ER ORD. PHYSICIAN: ALAINA LEÓN DO REASON: weakness PROCEDURE: PELVIS EXAMINATION: Chest and pelvis radiographs. VIEWS: Single view of the chest and single view of the pelvis. COMPARISON: 09/17/2018 INDICATION:89 years, Male, weakness. FINDINGS: Normal cardiomediastinal silhouette. Diffuse bilateral interstitial reticulations. No pleural effusion or pneumothorax. No acute osseous process. Pelvis: No acute fracture, dislocation or subluxation. Surgical clips in the pelvis. Degenerative changes in the lower lumbar spine. Sacroiliac joints are u nremarkable. No soft tissue swelling. IMPRESSION: 1. Diffuse bilateral interstitial reticulations suspicious for chronic inters titial lung disease versus pulmonary edema. 2. No acute osseous process in the pelvis. PATIENT: SARA CORONADO ACCOUNT: [id number] : 1930 LOCATION: ER AGE: 89 SEX: M EXAM STATUS: REG ER ORD. PHYSICIAN: ALAINA LEÓN DO REASON: weakness, hx of fall PROCEDURE: CT HEAD AND CERVICAL SPINE WO EXAM: CT head and cervical spine without contrast INDICATION: Weakness, history of fall COMPARISON: CT head 09/17/2018 TECHNIQUE: Axial CT imaging through the head and cervical spine without intravenous contrast. Sagittal and coronal reformats were obtained. One or more of the following individualized dose reduction techniques were utilized for this examination: 1. Automated exposure control 2. Adjustment of the mA and/or kV according to patient size 3. Use of iterative reconstruction technique. FINDINGS: CT head: The ventricles and sulci are moderately enlarged, unchanged. There is unchanged encephalomalacia in the left frontal lobe. Mild periventricular and deep white matter hypoattenuation elsewhere. No intracranial hemorrhage or acute infarct. There is an unchanged 6 mm calcified extra-axial mass at the superior left frontal lobe, likely a meningioma. The calvarium is intact. Paranasal sinuses and mastoid air cells are clear. Globes and orbits are intact.. CT cervical spine: There is slight reversal of cervical lordosis. Severe disc space narrowing throughout the cervical spine with osseous bridging across disc spaces at C3-C4, C4-C5, C5-C6, and C6-C7. There is bulky bridging anterior ossification at multiple levels, greatest at C3-C4, C4-C5, C5-C6. Partial bridging bulky anterior osteophytes at the remaining levels. There are posterior disc osteophyte complexes throughout the cervical spine. Severe bilateral foraminal narrowing at C6-C7 and C7-T1 mild facet arthrosis in the lower cervical spine. Prevertebral soft tissues normal. There is at least moderate canal narrowing at multiple levels. IMPRESSION: CT HEAD: 1. No acute intracranial abnormality. 2. Unchanged moderate volume loss and left frontal encephalomalacia. 3. 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 CT CERVICAL SPINE: 1. No definite acute fracture of the cervical spine. 2. 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 There is chronic-appearing fragmentation of anterior osteophytes at C6-C7 but no definite acute fracture. 3. Probable moderate canal narrowing at multiple levels. 4. Given the above findings, if there is clinical concern for occult fracture or ligamentous injury, MRI could be obtained to better evaluate. VTE Prophylaxis Ordered VTE Prophylaxis Devices: No VTE Pharmacological Prophylaxi: Yes Assessment/Plan Assessment/Plan AMS Symptomatic bradycardia Cardiogenic shock SOUMYA due to vasomotor nephropathy Elevated CK History CVA History atrial flutter History of recent UTI Normocytic anemia Plan: Dobutamine infusion initiated ED; will continue dobutamine infusion and admit patient to ICU Consultation placed to cardiology Will obtain echocardiogram Will provide IV fluids Unknown baseline renal function; if no improvement in eGFR with IV fluids will consider consultation to cardiology depending on how aggressive family would like to be and if we are able to obtain lab values with baseline kidney function. CK does not meet diagnostic criteria for rhabdomyolysis, helpful should improve with IV fluids. TSH pending Continue treatment of recent UTI with Rocephin 1 g daily Resume home medications FEN - Cardiac diet PPX - Heparin FULL CODE Dispo - ICU for above Surrogate decision-maker is his son (Mayco Coronado) Critical care time 30 minutes spent reviewing chart, reviewing labs, reviewing imaging, discussion with patient's , and discussion with Dr. León. Justifications for Admission Other Justification CYRIL BUSTILLOS MD Dec 17, 2020 17:10
[2020-12-17] MEDS ORDERED: HYDROcodone/APAP 5/325MG 1 TAB TABLET PO PRN ×2 (17:15→17:30)
[2020-12-17 17:16] LABS: HYALINE CASTS, URINE MODERATE /HPF
[2020-12-17 17:17] LABS: BACTERIA,URINE 0 /HPF (0-FEW); RBC,URINE 0 /HPF (0-2)
[2020-12-17] MEDS ORDERED: ACETAMINOPHEN 325 MG TABLET. PO PRN (17:30)
[2020-12-17] MEDS ORDERED: MORPHINE SULFATE 4 MG/ML INJ. IVP PRN (17:30)
[2020-12-17] MEDS ORDERED: MORPHINE SULFATE 2 MG/ML INJ. IV PRN (17:30)
[2020-12-17] MEDS ORDERED: MAG HYDROX/ALUMINUM HYD/SIMETH 30 ML ORAL.SUSP PO PRN (17:30)
[2020-12-17] MEDS ORDERED: CALCIUM CARBONATE 500 MG TAB.CHEW PO PRN (17:30)
[2020-12-17] MEDS ORDERED: diphenhydrAMINE 50 MG/ML VIAL IVP PRN (17:30)
[2020-12-17] MEDS ORDERED: MAGNESIUM HYDROXIDE 2,400 MG/30 ML ORAL.SUSP. PO PRN (17:30)
[2020-12-17 17:38] LABS: FREE T4 1.27 ng/dL (0.76-1.46); THYROID STIM HORMONE (TSH) 2.334 uIU/mL (0.358-3.74)
--- NOTE | 2020-12-17 19:00 | RAD ---
XR CHEST 1V History: Reason: central line placement, eval for position / Spl. Instructions: / History: Comparison: December 17, 2020 Findings: Interval placement right IJ central line with tip projecting over the cavoatrial junction. No pneumot horax. Mild interstitial thickening, unchanged. No pleural effusion. Unchanged heart size. Elise Bang. Impression: 1. Interval placement right IJ central line. No pneumothorax. Electronically signed by: Brandon Garcia DO (12/17/2020 6:57 PM) [facility]
[2020-12-17] MEDS: HEPARIN for SUB-Q USE 5,000 UNIT/ML VIAL. SQ SCH (21:02)
--- NOTE | 2020-12-17 21:29 | NUR ---
admit from ER. Patient lives in a skilled fac. Patient is a poor historian. Limited admission completed
[2020-12-17] MEDS ORDERED: SMZ/TMP (21:58)
[2020-12-17] MEDS ORDERED: AMIO200T6 PO (21:58)
[2020-12-17] MEDS ORDERED: APIX5TAB PO (21:58)
[2020-12-17] MEDS ORDERED: AMIO400T5 PO (21:58)
[2020-12-17] MEDS ORDERED: METO25TA4 PO (21:58)
[2020-12-17] MEDS ORDERED: LEVO175T5 PO (21:58)
[2020-12-17] MEDS ORDERED: CEPH500C PO (21:58)
[2020-12-17] MEDS ORDERED: HYDR25TA PO (21:58)
[2020-12-17] MEDS ORDERED: OXYB-36 PO (21:58)
[2020-12-17] MEDS ORDERED: ATOR40TA59 PO (21:58)
[2020-12-18] VITALS (17 sets, daily range): BP systolic 118–167; BP diastolic 64–99
[2020-12-18] MEDS: LEVOTHYROXINE 150 MCG TABLET PO SCH (06:05)
[2020-12-18 06:39] LABS: BASO % 1 % (0-3); EOS # 0.2 x10^3/uL (0.0-0.7); EOS % 3 % (0-3); HEMATOCRIT 30.6 % (39.0-53.0); HEMOGLOBIN 9.8 g/dL (13.0-17.5); LYMPH # 1.2 x10^3/uL (1.0-4.8); LYMPH % 16 % (24-48); MEAN CORPUSCULAR HEMOGLOBIN 24 pg (25-35); MEAN CORPUSCULAR HGB CONC 32 g/dL (31-37); MEAN CORPUSCULAR VOLUME 74 fL (79-100); MONO # 0.5 x10^3/uL (0.0-1.1); MONO % 7 % (0-9); NEUT # 5.2 x10^3/uL (1.8-7.7); NEUT % 73 % (31-73); PLATELET COUNT 256 x10^3/uL (140-400); RED BLOOD COUNT 4.13 x10^6/uL (4.30-5.70); RED CELL DISTRIBUTION WIDTH 18.2 % (11.5-14.5); WHITE BLOOD COUNT 7.2 x10^3/uL (4.0-11.0)
[2020-12-18 06:41] LABS: CALCIUM 8.2 mg/dL (8.5-10.1); CREATININE 1.1 mg/dL (0.7-1.3); GFR 76.3; POTASSIUM 3.3 mmol/L (3.5-5.1)
[2020-12-18] MEDS: PANTOPRAZOLE 40 MG TABLET.DR. PO SCH (09:02)
[2020-12-18] MEDS: ASPIRIN ENTERIC COATED 81 MG TABLET.DR. PO SCH (09:02)
[2020-12-18] MEDS: FOLIC ACID 1 MG TABLET. PO SCH (09:02)
[2020-12-18] MEDS ORDERED: POTASSIUM CHLORIDE 20 MEQ TABLET.ER. PO ONE (09:15)
--- NOTE | 2020-12-18 09:28 | PDOC2 ---
POPEYE COTTON SENIOR NET PROGRAMMER 12/18/20 0928: CARDIAC CONSULT DATE OF CONSULT Date of Consult DATE: 12/18/20 TIME: 08:54 REASON FOR CONSULT Reason for Consult: Cardiogenic shock REFERRING PHYSICIAN Referring Physician: Shyam SOURCE Source: Chart review HISTORY OF PRESENT ILLNESS HISTORY OF PRESENT ILLNESS This is an 89 yo male admitted for fall. He was at [facility] home and was found down next to the toilet unclear how long he was there. Upon EMS arrival he was noted with hypotension and and bradycardia. There was no respiratory distress. Unclear if he fell and there was no apparent injury. Upon arrival in ED he was noted with severe hypoglycemia at 31. His rhythm is in SB and responded well with dopamine. 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 He is not on any BB or CCB. He just got discharge at [facility] due to decrease mentation, sleepy and was noted with UTI and was discharged with keflex. There was no mention of bradycardia at that time. At the present time he is not in any distress or pain and his. Unclear who is his cost consultant. No known hx of CAD. He also thinks it is year 1932. Denies ay chest pain, SOA. Unclear if he truly passed out. No hx of seizures. He was significnatly dehydrated upon admission. PAST MEDICAL HISTORY Cardiovascular: AFIB, HTN, Hyperlipidemia Pulmonary: COPD, Other (sleep apnea) CENTRAL NERVOUS SYSTEM: CVA GI: GERD Heme/Onc: Cancer (multiple myeloma), Sickle cell trait Musculoskeletal: Osteoarthritis ENT: Other ([place]) Renal/: UTI, Prostate Ca. Endocrine: Hyperthyroidism (treated with thyroid ablation), Hypothyroidism PAST SURGICAL HISTORY Past Surgical History: Other (foot sugery; prostatectomy) FAMILY HISTORY Family History: Heart Disease (mother), Stroke (brother) SOCIAL HISTORY Smoke: Quit ALCOHOL: none Drugs: None Lives: [facility] CURRENT MEDICATIONS CURRENT MEDICATIONS Current Medications Medications (Trade) Dose Ordered Sig/Benny Route PRN Reason Start Time Stop Time Status Last Admin Dose Admin Atropine Sulfate (ATROPINE 1mg SYRINGE) 0.5 mg 1X ONCE IV 12/17/20 14:00 12/17/20 14:01 DC 12/17/20 14:02 Atropine Sulfate (ATROPINE 1mg SYRINGE) 1 mg 1X ONCE IV 12/17/20 14:15 12/17/20 14:16 DC 12/17/20 14:16 Dobutamine HCl/ Dextrose 250 ml @ 5.724 mls/ hr 1X ONCE IV 12/17/20 14:30 12/19/20 10:35 12/17/20 14:55 Sodium Chloride 1,000 ml @ 1,000 mls/hr 1X ONCE IV 12/17/20 14:30 12/17/20 15:29 DC 12/17/20 13:59 Dopamine HCl/ Dextrose 250 ml @ 17.888 mls/ hr 1X ONCE IV 12/17/20 17:15 12/18/20 07:13 DC 12/17/20 18:45 Levothyroxine Sodium (Synthroid) 150 mcg DAILY06 PO 12/18/20 06:00 12/18/20 06:05 Heparin Sodium (Porcine) (Heparin Sodium) 5,000 unit Q12HR SQ 12/17/20 21:00 12/17/20 21:02 ALLERGIES ALLERGIES: Coded Allergies: No Known Drug Allergies (Unverified , 07/13/13) ROS Review of System limited, poor historian PHYSICAL EXAM General: Alert, Cooperative, No acute distress HEENT: Atraumatic, Mucous membr. moist/pink Lungs: Clear to auscultation, Normal air movement Heart: Regular rate (SR), Normal S1, Normal S2, No murmurs Abdomen: Soft, No tenderness Extremities: No cyanosis, No edema Skin: No breakdown, No significant lesion Neuro: Normal speech, Sensation intact Psych/Mental Status: Other (pleasantly confused) MUSCULOSKELETAL: Osteoarthritic changes both hands VITALS/I&O VITALS/I&O: Vital Signs Date Time Temp Pulse Resp B/P (MAP) Pulse Ox O2 Delivery O2 Flow Rate FiO2 12/18/20 07:00 60 14 162/73 (102) 95 Room Air 12/18/20 04:00 98.2 98.2 I & O 12/17/20 12/17/20 12/18/20 15:00 23:00 07:00 Intake Total 70 ml 162 ml Output Total 150 ml 1375 ml Balance -80 ml -1213 ml LABS Lab: Laboratory Tests Test 12/17/20 13:52 12/17/20 13:55 12/17/20 13:58 12/17/20 15:05 Glucose (Fingerstick) 31 mg/dL (70-99) *L 119 mg/dL (70-99) H White Blood Count 5.8 x10^3/uL (4.0-11.0) Red Blood Count 4.09 x10^6/uL (4.30-5.70) L Hemoglobin 9.6 g/dL (13.0-17.5) L Hematocrit 30.4 % (39.0-53.0) L Mean Corpuscular Volume 74 fL (79-100) L Mean Corpuscular Hemoglobin 24 pg (25-35) L Mean Corpuscular Hemoglobin Concent 32 g/dL (31-37) Red Cell Distribution Width 17.9 % (11.5-14.5) H Platelet Count 260 x10^3/uL (140-400) Neutrophils (%) (Auto) 63 % (31-73) Lymphocytes (%) (Auto) 24 % (24-48) Monocytes (%) (Auto) 7 % (0-9) Eosinophils (%) (Auto) 6 % (0-3) H Basophils (%) (Auto) 1 % (0-3) Neutrophils # (Auto) 3.6 x10^3/uL (1.8-7.7) Lymphocytes # (Auto) 1.4 x10^3/uL (1.0-4.8) Monocytes # (Auto) 0.4 x10^3/uL (0.0-1.1) Eosinophils # (Auto) 0.3 x10^3/uL (0.0-0.7) Basophils # (Auto) 0.0 x10^3/uL (0.0-0.2) Sodium Level 145 mmol/L (136-145) Potassium Level 4.0 mmol/L (3.5-5.1) Chloride Level 111 mmol/L (98-107) H Carbon Dioxide Level 26 mmol/L (21-32) Anion Gap 8 (6-14) Blood Urea Nitrogen 20 mg/dL (8-26) Creatinine 1.8 mg/dL (0.7-1.3) H Estimated GFR (Cockcroft-Gault) 43.2 BUN/Creatinine Ratio 11 (6-20) Glucose Level 133 mg/dL (70-99) H Calcium Level 8.9 mg/dL (8.5-10.1) Magnesium Level 2.5 mg/dL (1.8-2.4) H Total Bilirubin 0.3 mg/dL (0.2-1.0) Aspartate Amino Transferase (AST) 45 U/L (15-37) H Alanine Aminotransferase (ALT) 41 U/L (16-63) Alkaline Phosphatase 91 U/L (46-116) Creatine Kinase 1086 U/L (39-308) H Creatine Kinase MB (Mass) 6.8 ng/mL (0.0-3.6) H Creatine Kinase MB Relative Index 0.6 % (0-4) Troponin I Quantitative 0.020 ng/mL (0.000-0.055) AC-Zbj-[id number]-Type Natriuretic Peptide 162 pg/mL (0-449) Total Protein 7.2 g/dL (6.4-8.2) Albumin 2.8 g/dL (3.4-5.0) L Albumin/Globulin Ratio 0.6 (1.0-1.7) L Thyroid Stimulating Hormone (TSH) 2.334 uIU/mL (0.358-3.74) Free Thyroxine 1.27 ng/dL (0.76-1.46) Free Triiodothyronine (T3) pg/mL 0.96 pg/mL (2.18-3.98) L Lactic Acid Level 1.4 mmol/L (0.4-2.0) Test 12/17/20 16:12 12/17/20 16:55 12/17/20 20:15 12/17/20 23:45 SARS-CoV-2 Antigen (Rapid) Negative (NEGATIVE) Urine Collection Type Unknown Urine Color Yellow Urine Clarity Clear Urine pH 7.0 (<5.0-8.0) Urine Specific [place] 1.010 (1.000-1.030) Urine Protein Negative mg/dL (NEG-TRACE) Urine Glucose (UA) Negative mg/dL (NEG) Urine Ketones (Stick) Negative mg/dL (NEG) Urine Blood Negative (NEG) Urine Nitrite Negative (NEG) Urine Bilirubin Negative (NEG) Urine Urobilinogen Dipstick 0.2 mg/dL (0.2 mg/dL) Urine Leukocyte Esterase Small (NEG) Urine RBC 0 /HPF (0-2) Urine WBC 11-20 /HPF (0-4) Urine Squamous Epithelial Cells Mod /LPF Urine Bacteria 0 /HPF (0-FEW) Urine Hyaline Casts Moderate /HPF Urine Mucus Slight /LPF Troponin I Quantitative 0.020 ng/mL (0.000-0.055) < 0.017 ng/mL (0.000-0.055) Test 12/18/20 06:20 White Blood Count 7.2 x10^3/uL (4.0-11.0) Red Blood Count 4.13 x10^6/uL (4.30-5.70) L Hemoglobin 9.8 g/dL (13.0-17.5) L Hematocrit 30.6 % (39.0-53.0) L Mean Corpuscular Volume 74 fL (79-100) L Mean Corpuscular Hemoglobin 24 pg (25-35) L Mean Corpuscular Hemoglobin Concent 32 g/dL (31-37) Red Cell Distribution Width 18.2 % (11.5-14.5) H Platelet Count 256 x10^3/uL (140-400) Neutrophils (%) (Auto) 73 % (31-73) Lymphocytes (%) (Auto) 16 % (24-48) L Monocytes (%) (Auto) 7 % (0-9) Eosinophils (%) (Auto) 3 % (0-3) Basophils (%) (Auto) 1 % (0-3) Neutrophils # (Auto) 5.2 x10^3/uL (1.8-7.7) Lymphocytes # (Auto) 1.2 x10^3/uL (1.0-4.8) Monocytes # (Auto) 0.5 x10^3/uL (0.0-1.1) Eosinophils # (Auto) 0.2 x10^3/uL (0.0-0.7) Basophils # (Auto) 0.0 x10^3/uL (0.0-0.2) Sodium Level 145 mmol/L (136-145) Potassium Level 3.3 mmol/L (3.5-5.1) L Chloride Level 114 mmol/L (98-107) H Carbon Dioxide Level 25 mmol/L (21-32) Anion Gap 6 (6-14) Blood Urea Nitrogen 14 mg/dL (8-26) Creatinine 1.1 mg/dL (0.7-1.3) Estimated GFR (Cockcroft-Gault) 76.3 Glucose Level 111 mg/dL (70-99) H Calcium Level 8.2 mg/dL (8.5-10.1) L Procalcitonin < 0.10 ng/mL (0.00-0.10) Laboratory Tests 12/17/20 13:58 12/18/20 06:20 Laboratory Tests 12/17/20 13:58 12/18/20 06:20 ECHOCARDIOGRAM ECHOCARDIOGRAM [facility] 03/04/2019 Technically difficult study; i.v. transpulmonary contrast was used to define the endocardial borders, the underlying rhythm is atrial fibrillation. Moderately depressed left ventricular systolic function, estimated ejection fraction is 40 %, global hypokinesis. Unable to assess left ventricular diastolic function. The valvular structures are poorly visualized, no significant valvular abnormalities appear to be present. The ascending aorta is mildly dilated. Estimated Peak Systolic PA Pressure 22 mmHg STRESS TEST STRESS TEST [facility] 07/05/2020 SUMMARY/OPINION: This study is probably normal. The perfusion pattern is most consistent with soft tissue attenuation, a significant ischemic change is not appreciated. Left ventricular systolic function is normal, the ejection fraction is 57%. There are no high risk prognostic indicators present. The pulmonary to myocardial count ratio was normal at 0.22, there is no transient ischemic dilatation. The pharmacologic ECG portion of the study is negative for ischemia. There were occasional PVCs, there were a total of 21 PVCs captured. There was one ventricular couplet. The prior study was obtained on 02/20/2016. It demonstrated an ejection fraction 58%, the end-diastolic volume was 76 mL, the pulmonary to myocardial count ratio 0.38, there is no transit ischemic dilatation. It demonstrated changes most consistent with soft tissue attenuation, a significant ischemic change is not appreciated. In comparing the 2 studies qualitatively, the perfusion pattern appears quite similar, suggestive no significant interval change. In aggregate the current study is low risk in regards to predicted annual cardiovascular mortality rate. ASSESSMENT/PLAN ASSESSMENT/PLAN 1. Possible fall and syncope: in the setting of bradycardia hypotension and hypoglycemia 2. Hypoglycemic reaction: noted BG of 31 in ED 3. Sinus bradycardia: lowest in the 30s no pauses, responded well with dopamine 4. Hypovolemic shock: dehydrated 5. 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 PAFIB: on 400 mg of amiodarone and eliquis. QTc 460 7. SOUMYA: Cr better after hydration 8. COPD 9. Acquired hypothyroidism: on replacement 10. UTI: recently started treatment 11. Rhabdomyolysis 12. Suspect dementia Recommendations 1. Replace K. Hold amiodarone. Titrate off dopamine and note response 2. TTE today 3. IV hydrate 4. Avoid nephrtoxic agents NITA HAINES MD 12/19/20 0915: CARDIAC CONSULT ASSESSMENT/PLAN ASSESSMENT/PLAN Patient seen and examined 12/18/2020. Agree with PEDIATRIC ALLERGIST's assessment and plan. PAF with sinus bradycardia. Agree with holding amiodarone. 2D echo showed normal LV systolic function. Titrate dopamine off as tolerated. Continue intravenous hydration for hypovolemia Consider event monitor recording as an outpatient Thank you for your consultation POPEYE COTTON APRN Dec 18, 2020 09:28 NITA HAINES MD Dec 19, 2020 09:15
--- NOTE | 2020-12-18 09:47 | PDOC ---
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 QTc 460 covid neg Plan: icu bed Dobutamine infusion initiated ED; will continue dobutamine infusion and admit patient to ICU Consultation placed to cardiology Will obtain echocardiogram Will provide IV fluids Unknown baseline renal function; if no improvement in eGFR with IV fluids will consider consultation to cardiology depending on how aggressive family would like to be and if we are able to obtain lab values with baseline kidney function. CK does not meet diagnostic criteria for rhabdomyolysis, helpful should improve with IV fluids. TSH pending Continue treatment of recent UTI with Rocephin 1 g daily Resume home medications FEN - Cardiac diet PPX - Heparin FULL CODE Dispo - ICU for above Surrogate decision-maker is his son (Mayco Coronado) Critical care time 33 minutes spent reviewing chart, Justifications for Admission Justifications for Admission Other Justification History of Present Illness History of Present Illness Identification/Chief Complaint Chief Complaint AMS, hypotension, bradycardia Source Source: Chart review History of Present Illness History of Present Illness Patient is a 89-year-old male with past medical history CVA, TIA, hypothyroidism, atrial flutter, HTN, HLD, anemia, GERD, multiple myeloma, who presents from [facility] after being found down next to his toilet. Upon EMS arrival he was noted to be altered with blood pressure 55/30 mmHg and heart rate in the 30s. Upon arrival in the ED he was saturating 100% on room air. Chest x-ray showed bilateral interstitial opacities, concerning for chronic interstitial lung disease versus pulmonary edema. Pelvis x-ray showed no acute osseous process in the pelvis. CT head and cervical spine showed no acute intracranial abnormality and no definite acute process of the cervical spine. Labs on admission showed WBC 5.8, hemoglobin 9.6, hematocrit 30.4, cr eatinine 1.8, CBG 133, troponin 0.020, CK 1086, albumin 2.8. His rapid COVID-19 was negative. He was placed on dobutamine infusion with improvement in heart rate and blood pressure. He was recently prescribed Keflex for UTI. Reportedly he is DNR. Will admit patient to ICU with cardiology consult for further medical management. Past Medical History Cardiovascular: HTN, Hyperlipidemia Pulmonary: No pertinent hx CENTRAL NERVOUS SYSTEM: Other GI: Diverticulosis Heme/Onc: Sickle cell trait Hepatobiliary: Cholelithiasis Psych: No pertinent hx Musculoskeletal: low back pain Rheumatologic: No pertinent hx Infectious disease: No pertinent hx Renal/: Prostate Ca. Endocrine: No pertinent hx, Hypothyroidism Past Surgical History Past Surgical History: Hysterectomy Family History Family History: Other Social History Smoke: No ALCOHOL: none Drugs: None Current Medications Current Medications Current Medications Atropine Sulfate (ATROPINE 1mg SYRINGE) 0.5 mg 1X ONCE IV Last administered on 12/17/20at 14:02; Start 12/17/20 at 14:00; Stop 12/17/20 at 14:01; Status DC Dextrose (Dextrose 50%-Water Syringe) 25 gm 1X ONCE IV ; Start 12/17/20 at 14:00; Stop 12/17/20 at 13:56; Status DC Dextrose (Dextrose 50%-Water Syringe) 25 gm STK-MED ONCE IV ; Start 12/17/20 at 13:54; Stop 12/17/20 at 13:56; Status DC Atropine Sulfate (ATROPINE 1mg SYRINGE) 1 mg 1X ONCE IV Last administered on 12/17/20at 14:16; Start 12/17/20 at 14:15; Stop 12/17/20 at 14:16; Status DC Dobutamine HCl/ Dextrose 250 ml @ 5.724 mls/ hr 1X ONCE IV Last administered on 12/17/20at 14:55; Start 12/17/20 at 14:30; Stop 12/19/20 at 10:35 Sodium Chloride 1,000 ml @ 1,000 mls/hr 1X ONCE IV Last administered on 11/22 10/10at 13:59; Start 12/17/20 at 14:30; Stop 12/17/20 at 15:29; Status DC Active Scripts Active Reported Omeprazole 40 Mg Capsule.dr 1 Cap PO DAILY Folic Acid 1 Mg Tablet 1 Tab PO DAILY Amlodipine Besylate 2.5 Mg Tablet 1 Tab PO DAILY Levothyroxine Sodium 150 Mcg Tablet 1 Tab PO DAILY Hydrocodone-Apap 5-325 (Hydrocodone Bit/Acetaminophen) 1 Each Tablet 1 Each PO PRN Q4HRS PRN Aspir 81 (Aspirin) 81 Mg Tablet. 81 Mg PO DAILY Allergies Allergies: Coded Allergies: No Known Drug Allergies (Unverified , 07/13/13) ROS Review of System Reviewed with patient but unable to obtain at this time due to clinical condition Vitals Vitals Vital Signs Date Time Temp Pulse Resp B/P (MAP) Pulse Ox O2 Delivery O2 Flow Rate FiO2 12/18/20 09:00 70 12 165/79 (107) 97 Room Air 12/18/20 08:00 96.3 96.3 Physical Exam Physical Exam General: Alert, Cooperative, No acute distress HEENT: PERRLA, EOMI Lungs: Decreased breath sounds bilaterally, Normal air movement Heart: Bradycardic, no murmurs Cardiovascular: S1, S2 Abdomen: Normal bowel sounds, Soft, No tenderness Extremities: 2+ bilateral lower extremity edema. No clubbing, No cyanosis Skin: No rashes, No significant lesion Neuro: Normal tone, Sensation intact Psych/Mental Status: Somnolent, lethargic. General: Alert, Cooperative, No acute distress Heart: Regular rate (SR), Normal S1, Normal S2, No murmurs Abdomen: Soft, No tenderness Extremities: No cyanosis, No edema Skin: No breakdown, No significant lesion Labs LABS PATIENT: SARA CORONADO ACCOUNT: [id number] : 1930 LOCATION: ED HOLD AGE: 89 SEX: M EXAM STATUS: ADM IN ORD. PHYSICIAN: ALAINA LEÓN DO REASON: central line placement, eval for position PROCEDURE: CHEST AP ONLY XR CHEST 1V History: Reason: central line placement, eval for position / Spl. Instructions: / History: Comparison: December 17, 2020 Findings: Interval placement right IJ central line with tip projecting over the cavoatrial junction. No pneumothorax. Mild interstitial thickening, unchanged. No pleural effusion. Unchanged heart size. Glenohumeral DJD. Impression: 1. Interval placement right IJ central line. No pneumothorax. Electronically signed by: Brandon Garcia DO (12/17/2020 6:57 PM) [facility] DICTATED and SIGNED BY: GARCIABRANDON Plaza DO DATE: 12/17/20 [id number] 0 Laboratory Tests Test 12/17/20 13:52 12/17/20 13:55 12/17/20 13:58 12/17/20 15:05 Glucose (Fingerstick) 31 mg/dL (70-99) 119 mg/dL (70-99) White Blood Count 5.8 x10^3/uL (4.0-11.0) Red Blood Count 4.09 x10^6/uL (4.30-5.70) Hemoglobin 9.6 g/dL (13.0-17.5) Hematocrit 30.4 % (39.0-53.0) Mean Corpuscular Volume 74 fL (79-100) Mean Corpuscular Hemoglobin 24 pg (25-35) Mean Corpuscular Hemoglobin Concent 32 g/dL (31-37) Red Cell Distribution Width 17.9 % (11.5-14.5) Platelet Count 260 x10^3/uL (140-400) Neutrophils (%) (Auto) 63 % (31-73) Lymphocytes (%) (Auto) 24 % (24-48) Monocytes (%) (Auto) 7 % (0-9) Eosinophils (%) (Auto) 6 % (0-3) Basophils (%) (Auto) 1 % (0-3) Neutrophils # (Auto) 3.6 x10^3/uL (1.8-7.7) Lymphocytes # (Auto) 1.4 x10^3/uL (1.0-4.8) Monocytes # (Auto) 0.4 x10^3/uL (0.0-1.1) Eosinophils # (Auto) 0.3 x10^3/uL (0.0-0.7) Basophils # (Auto) 0.0 x10^3/uL (0.0-0.2) Sodium Level 145 mmol/L (136-145) Potassium Level 4.0 mmol/L (3.5-5.1) Chloride Level 111 mmol/L (98-107) Carbon Dioxide Level 26 mmol/L (21-32) Anion Gap 8 (6-14) Blood Urea Nitrogen 20 mg/dL (8-26) Creatinine 1.8 mg/dL (0.7-1.3) Estimated GFR (Cockcroft-Gault) 43.2 BUN/Creatinine Ratio 11 (6-20) Glucose Level 133 mg/dL (70-99) Calcium Level 8.9 mg/dL (8.5-10.1) Magnesium Level 2.5 mg/dL (1.8-2.4) Total Bilirubin 0.3 mg/dL (0.2-1.0) Aspartate Amino Transf (AST/SGOT) 45 U/L (15-37) Alanine Aminotransferase (ALT/SGPT) 41 U/L (16-63) Alkaline Phosphatase 91 U/L (46-116) Creatine Kinase 1086 U/L (39-308) Creatine Kinase MB (Mass) 6.8 ng/mL (0.0-3.6) Creatine Kinase MB Relative Index 0.6 % (0-4) Troponin I Quantitative 0.020 ng/mL (0.000-0.055) DH-Iou-R-Type Natriuretic Peptide 162 pg/mL (0-449) Total Protein 7.2 g/dL (6.4-8.2) Albumin 2.8 g/dL (3.4-5.0) Albumin/Globulin Ratio 0.6 (1.0-1.7) Thyroid Stimulating Hormone (TSH) 2.334 uIU/mL (0.358-3.74) Free Thyroxine 1.27 ng/dL (0.76-1.46) Free Triiodothyronine (T3) pg/mL 0.96 pg/mL (2.18-3.98) Lactic Acid Level 1.4 mmol/L (0.4-2.0) Test 12/17/20 16:12 12/17/20 16:55 12/17/20 20:15 12/17/20 23:45 SARS-CoV-2 Antigen (Rapid) Negative (NEGATIVE) Urine Collection Type Unknown Urine Color Yellow Urine Clarity Clear Urine pH 7.0 (<5.0-8.0) Urine Specific [facility] 1.010 (1.000-1.030) Urine Protein Negative mg/dL (NEG-TRACE) Urine Glucose (UA) Negative mg/dL (NEG) Urine Ketones (Stick) Negative mg/dL (NEG) Urine Blood Negative (NEG) Urine Nitrite Negative (NEG) Urine Bilirubin Negative (NEG) Urine Urobilinogen Dipstick 0.2 mg/dL (0.2 mg/dL) Urine Leukocyte Esterase Small (NEG) Urine RBC 0 /HPF (0-2) Urine WBC 11-20 /HPF (0-4) Urine Squamous Epithelial Cells Mod /LPF Urine Bacteria 0 /HPF (0-FEW) Urine Hyaline Casts Moderate /HPF Urine Mucus Slight /LPF Troponin I Quantitative 0.020 ng/mL (0.000-0.055) < 0.017 ng/mL (0.000-0.055) Test 12/18/20 06:20 White Blood Count 7.2 x10^3/uL (4.0-11.0) Red Blood Count 4.13 x10^6/uL (4.30-5.70) Hemoglobin 9.8 g/dL (13.0-17.5) Hematocrit 30.6 % (39.0-53.0) Mean Corpuscular Volume 74 fL (79-100) Mean Corpuscular Hemoglobin 24 pg (25-35) Mean Corpuscular Hemoglobin Concent 32 g/dL (31-37) Red Cell Distribution Width 18.2 % (11.5-14.5) Platelet Count 256 x10^3/uL (140-400) Neutrophils (%) (Auto) 73 % (31-73) Lymphocytes (%) (Auto) 16 % (24-48) Monocytes (%) (Auto) 7 % (0-9) Eosinophils (%) (Auto) 3 % (0-3) Basophils (%) (Auto) 1 % (0-3) Neutrophils # (Auto) 5.2 x10^3/uL (1.8-7.7) Lymphocytes # (Auto) 1.2 x10^3/uL (1.0-4.8) Monocytes # (Auto) 0.5 x10^3/uL (0.0-1.1) Eosinophils # (Auto) 0.2 x10^3/uL (0.0-0.7) Basophils # (Auto) 0.0 x10^3/uL (0.0-0.2) Sodium Level 145 mmol/L (136-145) Potassium Level 3.3 mmol/L (3.5-5.1) Chloride Level 114 mmol/L (98-107) Carbon Dioxide Level 25 mmol/L (21-32) Anion Gap 6 (6-14) Blood Urea Nitrogen 14 mg/dL (8-26) Creatinine 1.1 mg/dL (0.7-1.3) Estimated GFR (Cockcroft-Gault) 76.3 Glucose Level 111 mg/dL (70-99) Calcium Level 8.2 mg/dL (8.5-10.1) Procalcitonin < 0.10 ng/mL (0.00-0.10) Assessment and Plan Assessmemt and Plan Problems Medical Problems: (1) Cardiogenic shock Status: Acute (2) Elevated CPK Status: Acute Comment Review of Relevant I have reviewed the following items christos (where applicable) has been applied. Labs Laboratory Tests Test 12/17/20 13:52 12/17/20 13:55 12/17/20 13:58 12/17/20 15:05 Glucose (Fingerstick) 31 mg/dL (70-99) 119 mg/dL (70-99) White Blood Count 5.8 x10^3/uL (4.0-11.0) Red Blood Count 4.09 x10^6/uL (4.30-5.70) Hemoglobin 9.6 g/dL (13.0-17.5) Hematocrit 30.4 % (39.0-53.0) Mean Corpuscular Volume 74 fL (79-100) Mean Corpuscular Hemoglobin 24 pg (25-35) Mean Corpuscular Hemoglobin Concent 32 g/dL (31-37) Red Cell Distribution Width 17.9 % (11.5-14.5) Platelet Count 260 x10^3/uL (140-400) Neutrophils (%) (Auto) 63 % (31-73) Lymphocytes (%) (Auto) 24 % (24-48) Monocytes (%) (Auto) 7 % (0-9) Eosinophils (%) (Auto) 6 % (0-3) Basophils (%) (Auto) 1 % (0-3) Neutrophils # (Auto) 3.6 x10^3/uL (1.8-7.7) Lymphocytes # (Auto) 1.4 x10^3/uL (1.0-4.8) Monocytes # (Auto) 0.4 x10^3/uL (0.0-1.1) Eosinophils # (Auto) 0.3 x10^3/uL (0.0-0.7) Basophils # (Auto) 0.0 x10^3/uL (0.0-0.2) Sodium Level 145 mmol/L (136-145) Potassium Level 4.0 mmol/L (3.5-5.1) Chloride Level 111 mmol/L (98-107) Carbon Dioxide Level 26 mmol/L (21-32) Anion Gap 8 (6-14) Blood Urea Nitrogen 20 mg/dL (8-26) Creatinine 1.8 mg/dL (0.7-1.3) Estimated GFR (Cockcroft-Gault) 43.2 BUN/Creatinine Ratio 11 (6-20) Glucose Level 133 mg/dL (70-99) Calcium Level 8.9 mg/dL (8.5-10.1) Magnesium Level 2.5 mg/dL (1.8-2.4) Total Bilirubin 0.3 mg/dL (0.2-1.0) Aspartate Amino Transf (AST/SGOT) 45 U/L (15-37) Alanine Aminotransferase (ALT/SGPT) 41 U/L (16-63) Alkaline Phosphatase 91 U/L (46-116) Creatine Kinase 1086 U/L (39-308) Creatine Kinase MB (Mass) 6.8 ng/mL (0.0-3.6) Creatine Kinase MB Relative Index 0.6 % (0-4) Troponin I Quantitative 0.020 ng/mL (0.000-0.055) QA-Zkd-Y-Type Natriuretic Peptide 162 pg/mL (0-449) Total Protein 7.2 g/dL (6.4-8.2) Albumin 2.8 g/dL (3.4-5.0) Albumin/Globulin Ratio 0.6 (1.0-1.7) Thyroid Stimulating Hormone (TSH) 2.334 uIU/mL (0.358-3.74) Free Thyroxine 1.27 ng/dL (0.76-1.46) Free Triiodothyronine (T3) pg/mL 0.96 pg/mL (2.18-3.98) Lactic Acid Level 1.4 mmol/L (0.4-2.0) Test 12/17/20 16:12 12/17/20 16:55 9/27/21 20:15 12/17/20 23:45 SARS-CoV-2 Antigen (Rapid) Negative (NEGATIVE) Urine Collection Type Unknown Urine Color Yellow Urine Clarity Clear Urine pH 7.0 (<5.0-8.0) Urine Specific [facility] 1.010 (1.000-1.030) Urine Protein Negative mg/dL (NEG-TRACE) Urine Glucose (UA) Negative mg/dL (NEG) Urine Ketones (Stick) Negative mg/dL (NEG) Urine Blood Negative (NEG) Urine Nitrite Negative (NEG) Urine Bilirubin Negative (NEG) Urine Urobilinogen Dipstick 0.2 mg/dL (0.2 mg/dL) Urine Leukocyte Esterase Small (NEG) Urine RBC 0 /HPF (0-2) Urine WBC 11-20 /HPF (0-4) Urine Squamous Epithelial Cells Mod /LPF Urine Bacteria 0 /HPF (0-FEW) Urine Hyaline Casts Moderate /HPF Urine Mucus Slight /LPF Troponin I Quantitative 0.020 ng/mL (0.000-0.055) < 0.017 ng/mL (0.000-0.055) Test 12/18/20 06:20 White Blood Count 7.2 x10^3/uL (4.0-11.0) Red Blood Count 4.13 x10^6/uL (4.30-5.70) Hemoglobin 9.8 g/dL (13.0-17.5) Hematocrit 30.6 % (39.0-53.0) Mean Corpuscular Volume 74 fL (79-100) Mean Corpuscular Hemoglobin 24 pg (25-35) Mean Corpuscular Hemoglobin Concent 32 g/dL (31-37) Red Cell Distribution Width 18.2 % (11.5-14.5) Platelet Count 256 x10^3/uL (140-400) Neutrophils (%) (Auto) 73 % (31-73) Lymphocytes (%) (Auto) 16 % (24-48) Monocytes (%) (Auto) 7 % (0-9) Eosinophils (%) (Auto) 3 % (0-3) Basophils (%) (Auto) 1 % (0-3) Neutrophils # (Auto) 5.2 x10^3/uL (1.8-7.7) Lymphocytes # (Auto) 1.2 x10^3/uL (1.0-4.8) Monocytes # (Auto) 0.5 x10^3/uL (0.0-1.1) Eosinophils # (Auto) 0.2 x10^3/uL (0.0-0.7) Basophils # (Auto) 0.0 x10^3/uL (0.0-0.2) Sodium Level 145 mmol/L (136-145) Potassium Level 3.3 mmol/L (3.5-5.1) Chloride Level 114 mmol/L (98-107) Carbon Dioxide Level 25 mmol/L (21-32) Anion Gap 6 (6-14) Blood Urea Nitrogen 14 mg/dL (8-26) Creatinine 1.1 mg/dL (0.7-1.3) Estimated GFR (Cockcroft-Gault) 76.3 Glucose Level 111 mg/dL (70-99) Calcium Level 8.2 mg/dL (8.5-10.1) Procalcitonin < 0.10 ng/mL (0.00-0.10) Laboratory Tests Test 12/17/20 13:52 12/17/20 13:55 12/17/20 13:58 12/17/20 15:05 Glucose (Fingerstick) 31 mg/dL (70-99) 119 mg/dL (70-99) White Blood Count 5.8 x10^3/uL (4.0-11.0) Red Blood Count 4.09 x10^6/uL (4.30-5.70) Hemoglobin 9.6 g/dL (13.0-17.5) Hematocrit 30.4 % (39.0-53.0) Mean Corpuscular Volume 74 fL (79-100) Mean Corpuscular Hemoglobin 24 pg (25-35) Mean Corpuscular Hemoglobin Concent 32 g/dL (31-37) Red Cell Distribution Width 17.9 % (11.5-14.5) Platelet Count 260 x10^3/uL (140-400) Neutrophils (%) (Auto) 63 % (31-73) Lymphocytes (%) (Auto) 24 % (24-48) Monocytes (%) (Auto) 7 % (0-9) Eosinophils (%) (Auto) 6 % (0-3) Basophils (%) (Auto) 1 % (0-3) Neutrophils # (Auto) 3.6 x10^3/uL (1.8-7.7) Lymphocytes # (Auto) 1.4 x10^3/uL (1.0-4.8) Monocytes # (Auto) 0.4 x10^3/uL (0.0-1.1) Eosinophils # (Auto) 0.3 x10^3/uL (0.0-0.7) Basophils # (Auto) 0.0 x10^3/uL (0.0-0.2) Sodium Level 145 mmol/L (136-145) Potassium Level 4.0 mmol/L (3.5-5.1) Chloride Level 111 mmol/L (98-107) Carbon Dioxide Level 26 mmol/L (21-32) Anion Gap 8 (6-14) Blood Urea Nitrogen 20 mg/dL (8-26) Creatinine 1.8 mg/dL (0.7-1.3) Estimated GFR (Cockcroft-Gault) 43.2 BUN/Creatinine Ratio 11 (6-20) Glucose Level 133 mg/dL (70-99) Calcium Level 8.9 mg/dL (8.5-10.1) Magnesium Level 2.5 mg/dL (1.8-2.4) Total Bilirubin 0.3 mg/dL (0.2-1.0) Aspartate Amino Transf (AST/SGOT) 45 U/L (15-37) Alanine Aminotransferase (ALT/SGPT) 41 U/L (16-63) Alkaline Phosphatase 91 U/L (46-116) Creatine Kinase 1086 U/L (39-308) Creatine Kinase MB (Mass) 6.8 ng/mL (0.0-3.6) Creatine Kinase MB Relative Index 0.6 % (0-4) Troponin I Quantitative 0.020 ng/mL (0.000-0.055) MR-Ipf-J-Type Natriuretic Peptide 162 pg/mL (0-449) Total Protein 7.2 g/dL (6.4-8.2) Albumin 2.8 g/dL (3.4-5.0) Albumin/Globulin Ratio 0.6 (1.0-1.7) Thyroid Stimulating Hormone (TSH) 2.334 uIU/mL (0.358-3.74) Free Thyroxine 1.27 ng/dL (0.76-1.46) Free Triiodothyronine (T3) pg/mL 0.96 pg/mL (2.18-3.98) Lactic Acid Level 1.4 mmol/L (0.4-2.0) Test 12/17/20 16:12 12/17/20 16:55 12/17/20 20:15 12/17/20 23:45 SARS-CoV-2 Antigen (Rapid) Negative (NEGATIVE) Urine Collection Type Unknown Urine Color Yellow Urine Clarity Clear Urine pH 7.0 (<5.0-8.0) Urine Specific [facility] 1.010 (1.000-1.030) Urine Protein Negative mg/dL (NEG-TRACE) Urine Glucose (UA) Negative mg/dL (NEG) Urine Ketones (Stick) Negative mg/dL (NEG) Urine Blood Negative (NEG) Urine Nitrite Negative (NEG) Urine Bilirubin Negative (NEG) Urine Urobilinogen Dipstick 0.2 mg/dL (0.2 mg/dL) Urine Leukocyte Esterase Small (NEG) Urine RBC 0 /HPF (0-2) Urine WBC 11-20 /HPF (0-4) Urine Squamous Epithelial Cells Mod /LPF Urine Bacteria 0 /HPF (0-FEW) Urine Hyaline Casts Moderate /HPF Urine Mucus Slight /LPF Troponin I Quantitative 0.020 ng/mL (0.000-0.055) < 0.017 ng/mL (0.000-0.055) Test 12/18/20 06:20 White Blood Count 7.2 x10^3/uL (4.0-11.0) Red Blood Count 4.13 x10^6/uL (4.30-5.70) Hemoglobin 9.8 g/dL (13.0-17.5) Hematocrit 30.6 % (39.0-53.0) Mean Corpuscular Volume 74 fL (79-100) Mean Corpuscular Hemoglobin 24 pg (25-35) Mean Corpuscular Hemoglobin Concent 32 g/dL (31-37) Red Cell Distribution Width 18.2 % (11.5-14.5) Platelet Count 256 x10^3/uL (140-400) Neutrophils (%) (Auto) 73 % (31-73) Lymphocytes (%) (Auto) 16 % (24-48) Monocytes (%) (Auto) 7 % (0-9) Eosinophils (%) (Auto) 3 % (0-3) Basophils (%) (Auto) 1 % (0-3) Neutrophils # (Auto) 5.2 x10^3/uL (1.8-7.7) Lymphocytes # (Auto) 1.2 x10^3/uL (1.0-4.8) Monocytes # (Auto) 0.5 x10^3/uL (0.0-1.1) Eosinophils # (Auto) 0.2 x10^3/uL (0.0-0.7) Basophils # (Auto) 0.0 x10^3/uL (0.0-0.2) Sodium Level 145 mmol/L (136-145) Potassium Level 3.3 mmol/L (3.5-5.1) Chloride Level 114 mmol/L (98-107) Carbon Dioxide Level 25 mmol/L (21-32) Anion Gap 6 (6-14) Blood Urea Nitrogen 14 mg/dL (8-26) Creatinine 1.1 mg/dL (0.7-1.3) Estimated GFR (Cockcroft-Gault) 76.3 Glucose Level 111 mg/dL (70-99) Calcium Level 8.2 mg/dL (8.5-10.1) Procalcitonin < 0.10 ng/mL (0.00-0.10) Medications Current Medications Atropine Sulfate (ATROPINE 1mg SYRINGE) 0.5 mg 1X ONCE IV Last administered on 12/17/20at 14:02; Start 12/17/20 at 14:00; Stop 12/17/20 at 14:01; Status DC Dextrose (Dextrose 50%-Water Syringe) 25 gm 1X ONCE IV ; Start 12/17/20 at 14:00; Stop 12/17/20 at 13:56; Status DC Dextrose (Dextrose 50%-Water Syringe) 25 gm STK-MED ONCE IV ; Start 12/17/20 at 13:54; Stop 12/17/20 at 13:56; Status DC Atropine Sulfate (ATROPINE 1mg SYRINGE) 1 mg 1X ONCE IV Last administered on 12/17/20at 14:16; Start 12/17/20 at 14:15; Stop 12/17/20 at 14:16; Status DC Dobutamine HCl/ Dextrose 250 ml @ 5.724 mls/ hr 1X ONCE IV Last administered on 12/17/20at 14:55; Start 12/17/20 at 14:30; Stop 12/19/20 at 10:35 Sodium Chloride 1,000 ml @ 1,000 mls/hr 1X ONCE IV Last administered on 12/17/20at 13:59; Start 12/17/20 at 14:30; Stop 12/17/20 at 15:29; Status DC Ondansetron HCl (Zofran) 4 mg PRN Q8HRS PRN IVP NAUSEA/VOMITING; Start 12/17/20 at 16:45; Stop 12/18/20 at 16:44 Dopamine HCl/ Dextrose 250 ml @ 17.888 mls/ hr 1X ONCE IV Last administered on 12/17/20at 18:45; Start 12/17/20 at 17:15; Stop 12/18/20 at 07:13; Status DC Aspirin (Ecotrin) 81 mg DAILY PO Last administered on 12/18/20at 09:02; Start 12/18/20 at 09:00 Folic Acid (Folic Acid) 1 mg DAILY PO Last administered on 12/18/20at 09:02; Start 12/18/20 at 09:00 Acetaminophen/ Hydrocodone Bitart (Lortab 5/325) 1 tab PRN Q4HRS PRN PO MODERATE TO SEVERE PAIN; Start 12/17/20 at 17:15 Levothyroxine Sodium (Synthroid) 150 mcg DAILY06 PO Last administered on 12/18/20at 06:05; Start 12/18/20 at 06:00 Pantoprazole Sodium (Protonix) 40 mg DAILYAC PO Last administered on 12/18/20at 09:02; Start 12/18/20 at 07:30 Ceftriaxone Sodium (Rocephin) 1 gm Q24H IVP ; Start 12/17/20 at 18:00 Ondansetron HCl (Zofran) 4 mg PRN Q6HRS PRN IVP NAUSEA/VOMITING; Start 12/17/20 at 17:30 Al Hydroxide/Mg Hydroxide (Mylanta Plus Xs) 30 ml PRN Q3HRS PRN PO HEARTBURN / GAS; Start 12/17/20 at 17:30 Calcium Carbonate/ Glycine (Tums) 500 mg PRN Q3HRS PRN PO UPSET STOMACH; Start 12/17/20 at 17:30 Morphine Sulfate (Morphine Sulfate) 2 mg PRN Q1HR PRN IV PAIN; Start 12/17/20 at 17:30 Acetaminophen/ Hydrocodone Bitart (Lortab 5/325) 1 tab PRN Q4HRS PRN PO MILD PAIN 1-3; Start 12/17/20 at 17:30 Acetaminophen (Tylenol) 650 mg PRN Q6HRS PRN PO Headaches, Temp > 101.5F; Start 12/17/20 at 17:30 Magnesium Hydroxide (Milk Of Magnesia) 2,400 mg PRN Q12HR PRN PO CONSTIPATION; Start 12/17/20 at 17:30 Heparin Sodium (Porcine) (Heparin Sodium) 5,000 unit Q12HR SQ Last administered on 12/17/20at 21:02; Start 12/17/20 at 21:00 Diphenhydramine HCl (Benadryl) 25 mg PRN QHS PRN IVP INSOMNIA; Start 12/17/20 at 17:30 Morphine Sulfate (Morphine Sulfate) 4 mg PRN Q4HRS PRN IVP PAIN; Start 12/17/20 at 17:30 Potassium Chloride (Klor-Con) 40 meq 1X ONCE PO ; Start 12/18/20 at 09:15; Stop 12/18/20 at 09:26; Status DC Active Scripts Active Reported Keflex (Cephalexin) 500 Mg Capsule 1 Cap PO TID [Smz/Tmp] Metoprolol Tartrate 25 Mg Tablet 1 Tab PO DAILY Atorvastatin Calcium 40 Mg Tablet 1 Tab PO DAILY Amiodarone Hcl 400 Mg Tablet 400 Tab PO DAILY Hydroxyzine Hcl 25 Mg Tablet 1 Tab PO DAILY Oxybutynin Chloride Er (Oxybutynin Chloride) 5 Mg Tab.er.24 1 Tab PO DAILY Levothyroxine Sodium 175 Mcg Tablet 1 Tab PO DAILY Eliquis (Apixaban) 5 Mg Tablet 1 Tab PO BID Amiodarone Hcl 200 Mg Tablet 1 Tab PO BID Omeprazole 40 Mg Capsule. 1 Cap PO DAILY Folic Acid 1 Mg Tablet 1 Tab PO DAILY Amlodipine Besylate 2.5 Mg Tablet 1 Tab PO DAILY Levothyroxine Sodium 150 Mcg Tablet 1 Tab PO DAILY Hydrocodone-Apap 5-325 (Hydrocodone Bit/Acetaminophen) 1 Each Tablet 1 Each PO PRN Q4HRS PRN Aspir 81 (Aspirin) 81 Mg Tablet. 81 Mg PO DAILY Vitals/I & O Vital Sign - Last 24 Hours 12/17/20 12/17/20 12/17/20 12/17/20 13:42 13:59 14:10 14:14 Temp 96.8 96.8 Pulse 34 38 58 38 Resp 20 B/P (MAP) 62/33 (43) 62/38 (46) 72/46 (55) 78/50 (59) Pulse Ox 100 97 92 98 O2 Delivery Room Air Room Air Room Air Room Air 12/17/20 12/17/20 12/17/20 12/17/20 14:16 14:19 14:24 14:29 Pulse 52 42 40 40 B/P (MAP) 68/44 (52) 68/45 (53) 80/51 (61) 76/49 (58) Pulse Ox 97 98 98 99 O2 Delivery Room Air Room Air Room Air Room Air 12/17/20 12/17/20 12/17/20 12/17/20 14:34 14:39 14:44 14:49 Pulse 40 40 40 40 B/P (MAP) 59/32 (41) 61/37 (45) 58/46 (50) 64/45 (51) Pulse Ox 97 92 97 97 O2 Delivery Room Air Room Air Room Air Room Air 12/17/20 12/17/20 12/17/20 12/17/20 14:54 14:57 16:34 16:39 Pulse 40 40 48 46 B/P (MAP) 62/45 (51) 70/46 (54) 133/64 (87) 128/62 (84) Pulse Ox 96 98 97 O2 Delivery Room Air Room Air Room Air Room Air 12/17/20 12/17/20 12/17/20 12/17/20 16:44 16:49 16:54 17:02 Pulse 48 50 44 46 B/P (MAP) 115/69 (84) 112/62 (79) 109/68 (82) 112/62 (79) Pulse Ox 94 98 98 O2 Delivery Room Air Room Air Room Air Room Air 12/17/20 12/17/20 12/17/20 12/17/20 17:17 17:32 17:47 18:02 Pulse 44 44 48 48 B/P (MAP) 105/57 (73) 80/58 (65) 83/55 (64) 100/60 (73) Pulse Ox 98 98 98 97 O2 Delivery Room Air Room Air Room Air Room Air 12/17/20 12/17/20 12/17/20 12/17/20 18:17 18:32 18:47 18:49 Pulse 42 42 38 44 B/P (MAP) 106/61 (76) 95/59 (71) 66/43 (51) 79/53 (62) Pulse Ox 98 99 98 94 O2 Delivery Room Air Room Air Room Air Room Air 12/17/20 12/17/20 12/17/20 12/17/20 19:00 19:15 19:30 19:45 Temp 96.5 96.5 Pulse 57 56 56 56 Resp 13 15 15 20 B/P (MAP) 128/73 (91) 114/61 (78) 112/56 (74) 128/73 (91) Pulse Ox 93 90 90 92 O2 Delivery Room Air Room Air Room Air Room Air 12/17/20 12/17/20 12/17/20 12/17/20 20:00 20:15 20:45 21:00 Pulse 56 66 76 76 Resp 16 16 18 19 B/P (MAP) 134/67 (89) 155/78 (103) 160/75 (103) 148/75 (99) Pulse Ox 92 95 97 97 O2 Delivery Room Air Room Air Room Air Room Air 12/17/20 12/17/20 12/17/20 12/17/20 21:38 22:00 22:15 23:00 Pulse 79 62 55 Resp 22 17 17 B/P (MAP) 172/78 (109) 140/68 (92) 114/53 (73) Pulse Ox 93 95 95 O2 Delivery Room Air Room Air Room Air Room Air 12/17/20 12/17/20 12/18/20 12/18/20 23:59 23:59 01:00 02:00 Temp 97.9 97.9 Pulse 52 71 75 Resp 27 20 18 B/P (MAP) 111/57 (75) 122/79 (93) 148/99 (115) Pulse Ox 96 97 95 O2 Delivery Room Air Room Air Room Air Room Air 12/18/20 12/18/20 12/18/20 12/18/20 03:00 04:00 05:00 06:00 Temp 98.2 98.2 Pulse 71 71 72 74 Resp 16 16 16 18 B/P (MAP) 140/66 (90) 140/70 (93) 129/79 (96) 148/64 (92) Pulse Ox 97 97 97 97 O2 Delivery Room Air Room Air Room Air Room Air 12/18/20 12/18/20 12/18/20 12/18/20 07:00 08:00 08:00 09:00 Temp 96.3 96.3 Pulse 60 62 70 Resp 14 16 12 B/P (MAP) 162/73 (102) 150/69 (96) 165/79 (107) Pulse Ox 95 95 97 O2 Delivery Room Air Room Air Room Air Room Air Intake and Output 12/17/20 12/17/20 12/18/20 15:00 23:00 07:00 Intake Total 70 ml 162 ml Output Total 150 ml 1375 ml Balance -80 ml -1213 ml Justicifation of Admission Dx: Justifications for Admission: Justification of Admission Dx: Yes Chronic Renal Failure: Metabolic Abnormality RAMONE GORE MD Dec 18, 2020 09:47
[2020-12-18] MEDS ORDERED: CARB15DR3 EACHEYE (10:00)
[2020-12-18] MEDS ORDERED: POLY17PO29 PO (10:00)
[2020-12-18] MEDS ORDERED: MULT-237 PO (10:00)
[2020-12-18] MEDS ORDERED: MELA3CAP2 PO (10:00)
[2020-12-18] MEDS ORDERED: SENN8.6T11 PO (10:00)
[2020-12-18] MEDS ORDERED: LORA10TA3 PO (10:00)
[2020-12-18] MEDS ORDERED: FAMO20TA5 PO (10:00)
[2020-12-18] MEDS: HEPARIN for SUB-Q USE 5,000 UNIT/ML VIAL. SQ SCH ×2 (10:26→20:48)
--- NOTE | 2020-12-18 15:14 | NUR ---
SS following for discharge planning. SS reviewed pt chart and discussed with pt RN. Pt is [facility] resident from [facility], ; fax [phone]. COVID19 negative. Pt on IV Rocephin and Dopamine. SS will continue to follow for discharge planning.
[2020-12-18] MEDS: cefTRIAXone IV Push 1 GM VIAL. IVP SCH ×2 (17:28→18:00)
--- NOTE | 2020-12-18 18:58 | CARD ---
MR#: [id number] Date of Study: 12/18/2020 Ordering Physician: CYRIL BUSTILLOS, Referring Physician: CYRIL BUSTILLOS, Tech: Mary Smart [facility] APPROV[facility] REPORT EXAM: Two-dimensional and M-mode echocardiogram with Doppler and color Doppler. Other Information Quality : AverageHR: 73bpm INDICATION Bradycardia RISK FACTORS Hypertension 2D DIMENSIONS RVDd3.1 (2.9-3.5cm)Left Atrium(2D)3.4 (1.6-4.0cm) IVSd1.0 (0.7-1.1cm)Aortic Root(2D)3.5 (2.0-3.7cm) LVDd5.6 (3.9-5.9cm)LVOT Diameter2.1 (1.8-2.4cm) PWd0.8 (0.7-1.1cm)LVDs4.0 (2.5-4.0cm) FS (%) 28.7 %SV82.3 ml Aortic Valve AoV Peak Bipin.144.2cm/sAoV VTI30.6cm AO Peak GR.8.3mmHgLVOT VTI 24.43cm AO Mean GR.4mmHg Mitral Valve MV E Edoxdjhd80.6cm/sMV E Peak Gr.4mmHg MV DECEL [id number] A Cjstyjhu99.4cm/s MV E Mean Gr.1mmHgE/A Ratio0.9 TDI Lateral E' P. V12.29cm/sMedial E' P. V5.41cm/s E/Lateral E'6.6E/Medial E'15.1 Tricuspid Valve TR P. Vnqudnjb585ns/sTR Peak Gr.27mmHg Pulmonary Vein S1 Aaxtcdue50.7cm/sS2 Rfthxgoa51.05cm/s D2 Svdjewqd45.1cm/sPVa [id number] LEFT VENTRICLE The left ventricle is normal size. There is normal left ventricular wall thickness. The left ventricu lar systolic function is normal and the ejection fraction is within normal range. The Ejection Fracti on is 50-55%. Septal motion consistent with conduction abnormality. Transmitral Doppler flow pattern is Grade I-abnormal relaxation pattern. RIGHT VENTRICLE The right ventricle is mildly dilated. There is normal right ventricular wall thickness. The right ve ntricular systolic function is normal. ATRIA The left atrium size is normal. The right atrium size is normal. The interatrial septum is intact wit h no evidence for an atrial septal defect or patent foramen ovale as noted on 2-D or Doppler imaging. AORTIC VALVE The aortic valve is thickened but opens well. Doppler and Color Flow revealed trace aortic regurgitat ion. There is no significant aortic valvular stenosis. Calculated aortic valve area is 2.45 cm2 with maximum pressure gradient of 13 mmHg and mean pressure gradient of 7 mmHg. MITRAL VALVE The mitral valve is normal in structure and function. There is no evidence of mitral valve prolapse. There is no mitral valve stenosis. Doppler and Color-flow revealed trace mitral regurgitation. TRICUSPID VALVE The tricuspid valve is normal in structure and function. Doppler and Color Flow revealed trace tricus pid regurgitation with an estimated PAP of 41 mmHg. There is no tricuspid valve stenosis. PULMONIC VALVE The pulmonic valve is not well visualized. Doppler and Color Flow revealed trace pulmonic valvular re gurgitation. GREAT VESSELS The aortic root is normal in size. The IVC was not visualized. PERICARDIAL EFFUSION There is no evidence of significant pericardial effusion. Critical Notification Critical Value: No <Conclusion> The left ventricle is normal size. The left ventricular systolic function is normal and the ejection fraction is within normal range. The Ejection Fraction is 50-55%. Doppler and Color Flow revealed trace aortic regurgitation. There is no significant aortic valvular stenosis. Doppler and Color-flow revealed trace mitral regurgitation. Doppler and Color Flow revealed trace tricuspid regurgitation with an estimated PAP of 41 mmHg. Signed by : Tee Christianson MD Electronically Approved : 12/18/2020 18:58:03
[2020-12-19] VITALS (7 sets, daily range): BP systolic 105–140; BP diastolic 60–68
[2020-12-19 05:06] LABS: BASO % 1 % (0-3); EOS # 0.3 x10^3/uL (0.0-0.7); EOS % 6 % (0-3); HEMATOCRIT 30.3 % (39.0-53.0); HEMOGLOBIN 9.6 g/dL (13.0-17.5); LYMPH # 1.6 x10^3/uL (1.0-4.8); LYMPH % 28 % (24-48); MEAN CORPUSCULAR HEMOGLOBIN 24 pg (25-35); MEAN CORPUSCULAR HGB CONC 32 g/dL (31-37); MEAN CORPUSCULAR VOLUME 74 fL (79-100); MONO # 0.5 x10^3/uL (0.0-1.1); MONO % 8 % (0-9); NEUT # 3.2 x10^3/uL (1.8-7.7); NEUT % 57 % (31-73); PLATELET COUNT 254 x10^3/uL (140-400); RED BLOOD COUNT 4.08 x10^6/uL (4.30-5.70); RED CELL DISTRIBUTION WIDTH 18.5 % (11.5-14.5); WHITE BLOOD COUNT 5.7 x10^3/uL (4.0-11.0)
[2020-12-19 05:19] LABS: CREATININE 1.2 mg/dL (0.7-1.3); POTASSIUM 3.9 mmol/L (3.5-5.1)
[2020-12-19] MEDS: LEVOTHYROXINE 150 MCG TABLET PO SCH (05:55)
--- NOTE | 2020-12-19 08:02 | PDOC ---
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 QTc 460 covid neg Plan: icu bed Dobutamine infusion initiated ED; will d/c dobutamine infusion / admit patient to ICU Consultation placed to cardiology Will obtain echocardiogram Will provide IV fluids Unknown baseline renal function; if no improvement in eGFR with IV fluids will consider consultation to cardiology depending on how aggressive family would like to be and if we are able to obtain lab values with baseline kidney function. CK does not meet diagnostic criteria for rhabdomyolysis, helpful should improve with IV fluids. TSH pending Continue treatment of recent UTI with Rocephin 1 g daily Resume home medications FEN - Cardiac diet PPX - Heparin FULL CODE Dispo - ICU for above Surrogate decision-maker is his son (Mayco Coronado) 2D echo normal LV systolic function.12-19 Titrate dopamine d/c intravenous hydration for hypovolemia event monitor recording as an outpatient Critical care time 34 minutes spent reviewing chart, Justifications for Admission Justifications for Admission Other Justification History of Present Illness History of Present Illness Identification/Chief Complaint Chief Complaint AMS, hypotension, bradycardia Source Source: Chart review History of Present Illness History of Present Illness Patient is a 89-year-old male with past medical history CVA, TIA, hypothyroidism, atrial flutter, HTN, HLD, anemia, GERD, multiple myeloma, who presents from [facility] after being found down next to his toilet. Upon EMS arrival he was noted to be altered with blood pressure 55/30 mmHg and heart rate in the 30s. Upon arrival in the ED he was saturating 100% on room air. Chest x-ray showed bilateral interstitial opacities, concerning for chronic interstitial lung disease versus pulmonary edema. Pelvis x-ray showed no acute osseous process in the pelvis. CT head and cervical spine showed no acute intracranial abnormality and no definite acute process of the cervical spine. Labs on admission showed WBC 5.8, hemoglobin 9.6, hematocrit 30.4, creatinine 1.8, CBG 133, troponin 0.020, CK 1086, albumin 2.8. His rapid COVID- 19 was negative. He was placed on dobutamine infusion with improvement in heart rate and blood pressure. He was recently prescribed Keflex for UTI. Reportedly he is DNR. Will admit patient to ICU with cardiology consult for further medical management. Past Medical History Cardiovascular: HTN, Hyperlipidemia Pulmonary: No pertinent hx CENTRAL NERVOUS SYSTEM: Other GI: Diverticulosis Heme/Onc: Sickle cell trait Hepatobiliary: Cholelithiasis Psych: No pertinent hx Musculoskeletal: low back pain Rheumatologic: No pertinent hx Infectious disease: No pertinent hx Renal/: Prostate Ca. Endocrine: No pertinent hx, Hypothyroidism Past Surgical History Past Surgical History: Hysterectomy Family History Family History: Other Social History Smoke: No ALCOHOL: none Drugs: None Current Medications Current Medications Current Medications Atropine Sulfate (ATROPINE 1mg SYRINGE) 0.5 mg 1X ONCE IV Last administered on 12/17/20at 14:02; Start 12/17/20 at 14:00; Stop 12/17/20 at 14:01; Status DC Dextrose (Dextrose 50%-Water Syringe) 25 gm 1X ONCE IV ; Start 12/17/20 at 14:00; Stop 12/17/20 at 13:56; Status DC Dextrose (Dextrose 50%-Water Syringe) 25 gm STK-MED ONCE IV ; Start 12/17/20 at 13:54; Stop 12/17/20 at 13:56; Status DC Atropine Sulfate (ATROPINE 1mg SYRINGE) 1 mg 1X ONCE IV Last administered on 12/17/20at 14:16; Start 12/17/20 at 14:15; Stop 12/17/20 at 14:16; Status DC Dobutamine HCl/ Dextrose 250 ml @ 5.724 mls/ hr 1X ONCE IV Last administered on 12/17/20at 14:55; Start 12/17/20 at 14:30; Stop 12/19/20 at 10:35 Sodium Chloride 1,000 ml @ 1,000 mls/hr 1X ONCE IV Last administered on 12/17/20at 13:59; Start 12/17/20 at 14:30; Stop 12/17/20 at 15:29; Status DC Active Scripts Active Reported Omeprazole 40 Mg Capsule. 1 Cap PO DAILY Folic Acid 1 Mg Tablet 1 Tab PO DAILY Amlodipine Besylate 2.5 Mg Tablet 1 Tab PO DAILY Levothyroxine Sodium 150 Mcg Tablet 1 Tab PO DAILY Hydrocodone-Apap 5-325 (Hydrocodone Bit/Acetaminophen) 1 Each Tablet 1 Each PO PRN Q4HRS PRN Aspir 81 (Aspirin) 81 Mg Tablet. 81 Mg PO DAILY Allergies Allergies: Coded Allergies: No Known Drug Allergies (Unverified , 07/13/13) ROS Review of System Reviewed with patient but unable to obtain at this time due to clinical condition Vitals Vitals Vital Signs Date Time Temp Pulse Resp B/P (MAP) Pulse Ox O2 Delivery O2 Flow Rate FiO2 12/19/20 03:00 98.5 50 22 131/68 (89) 98 Room Air 98.5 Physical Exam Physical Exam General: Alert, Cooperative, No acute distress HEENT: PERRLA, EOMI Lungs: Decreased breath sounds bilaterally, Normal air movement Heart: Bradycardic, no murmurs Cardiovascular: S1, S2 Abdomen: Normal bowel sounds, Soft, No tenderness Extremities: 2+ bilateral lower extremity edema. No clubbing, No cyanosis Skin: No rashes, No significant lesion Neuro: Normal tone, Sensation intact Psych/Mental Status: Somnolent, lethargic. General: Alert, Cooperative, No acute distress Heart: Regular rate (SR), Normal S1, Normal S2, No murmurs Abdomen: Soft, No tenderness Extremities: No cyanosis, No edema Skin: No breakdown, No significant lesion Labs LABS Laboratory Tests Test 12/19/20 05:00 White Blood Count 5.7 x10^3/uL (4.0-11.0) Red Blood Count 4.08 x10^6/uL (4.30-5.70) Hemoglobin 9.6 g/dL (13.0-17.5) Hematocrit 30.3 % (39.0-53.0) Mean Corpuscular Volume 74 fL (79-100) Mean Corpuscular Hemoglobin 24 pg (25-35) Mean Corpuscular Hemoglobin Concent 32 g/dL (31-37) Red Cell Distribution Width 18.5 % (11.5-14.5) Platelet Count 254 x10^3/uL (140-400) Neutrophils (%) (Auto) 57 % (31-73) Lymphocytes (%) (Auto) 28 % (24-48) Monocytes (%) (Auto) 8 % (0-9) Eosinophils (%) (Auto) 6 % (0-3) Basophils (%) (Auto) 1 % (0-3) Neutrophils # (Auto) 3.2 x10^3/uL (1.8-7.7) Lymphocytes # (Auto) 1.6 x10^3/uL (1.0-4.8) Monocytes # (Auto) 0.5 x10^3/uL (0.0-1.1) Eosinophils # (Auto) 0.3 x10^3/uL (0.0-0.7) Basophils # (Auto) 0.0 x10^3/uL (0.0-0.2) Sodium Level 144 mmol/L (136-145) Potassium Level 3.9 mmol/L (3.5-5.1) Chloride Level 112 mmol/L (98-107) Carbon Dioxide Level 26 mmol/L (21-32) Anion Gap 6 (6-14) Blood Urea Nitrogen 13 mg/dL (8-26) Creatinine 1.2 mg/dL (0.7-1.3) Estimated GFR (Cockcroft-Gault) 69.0 Glucose Level 93 mg/dL (70-99) Calcium Level 9.0 mg/dL (8.5-10.1) Assessment and Plan Assessmemt and Plan Problems Medical Problems: (1) Cardiogenic shock Status: Acute (2) Elevated CPK Status: Acute Comment Review of Relevant I have reviewed the following items christos (where applicable) has been applied. Labs Laboratory Tests Test 12/17/20 13:52 12/17/20 13:55 12/17/20 13:58 12/17/20 15:05 Glucose (Fingerstick) 31 mg/dL (70-99) 119 mg/dL (70-99) White Blood Count 5.8 x10^3/uL (4.0-11.0) Red Blood Count 4.09 x10^6/uL (4.30-5.70) Hemoglobin 9.6 g/dL (13.0-17.5) Hematocrit 30.4 % (39.0-53.0) Mean Corpuscular Volume 74 fL (79-100) Mean Corpuscular Hemoglobin 24 pg (25-35) Mean Corpuscular Hemoglobin Concent 32 g/dL (31-37) Red Cell Distribution Width 17.9 % (11.5-14.5) Platelet Count 260 x10^3/uL (140-400) Neutrophils (%) (Auto) 63 % (31-73) Lymphocytes (%) (Auto) 24 % (24-48) Monocytes (%) (Auto) 7 % (0-9) Eosinophils (%) (Auto) 6 % (0-3) Basophils (%) (Auto) 1 % (0-3) Neutrophils # (Auto) 3.6 x10^3/uL (1.8-7.7) Lymphocytes # (Auto) 1.4 x10^3/uL (1.0-4.8) Monocytes # (Auto) 0.4 x10^3/uL (0.0-1.1) Eosinophils # (Auto) 0.3 x10^3/uL (0.0-0.7) Basophils # (Auto) 0.0 x10^3/uL (0.0-0.2) Sodium Level 145 mmol/L (136-145) Potassium Level 4.0 mmol/L (3.5-5.1) Chloride Level 111 mmol/L (98-107) Carbon Dioxide Level 26 mmol/L (21-32) Anion Gap 8 (6-14) Blood Urea Nitrogen 20 mg/dL (8-26) Creatinine 1.8 mg/dL (0.7-1.3) Estimated GFR (Cockcroft-Gault) 43.2 BUN/Creatinine Ratio 11 (6-20) Glucose Level 133 mg/dL (70-99) Calcium Level 8.9 mg/dL (8.5-10.1) Magnesium Level 2.5 mg/dL (1.8-2.4) Total Bilirubin 0.3 mg/dL (0.2-1.0) Aspartate Amino Transf (AST/SGOT) 45 U/L (15-37) Alanine Aminotransferase (ALT/SGPT) 41 U/L (16-63) Alkaline Phosphatase 91 U/L (46-116) Creatine Kinase 1086 U/L (39-308) Creatine Kinase MB (Mass) 6.8 ng/mL (0.0-3.6) Creatine Kinase MB Relative Index 0.6 % (0-4) Troponin I Quantitative 0.020 ng/mL (0.000-0.055) JE-Wti-Q-Type Natriuretic Peptide 162 pg/mL (0-449) Total Protein 7.2 g/dL (6.4-8.2) Albumin 2.8 g/dL (3.4-5.0) Albumin/Globulin Ratio 0.6 (1.0-1.7) Thyroid Stimulating Hormone (TSH) 2.334 uIU/mL (0.358-3.74) Free Thyroxine 1.27 ng/dL (0.76-1.46) Free Triiodothyronine (T3) pg/mL 0.96 pg/mL (2.18-3.98) Lactic Acid Level 1.4 mmol/L (0.4-2.0) Test 12/17/20 16:12 12/17/20 16:55 12/17/20 20:15 12/17/20 23:45 SARS-CoV-2 RNA (NINO) Negative (Negative) SARS-CoV-2 Antigen (Rapid) Negative (NEGATIVE) Urine Collection Type Unknown Urine Color Yellow Urine Clarity Clear Urine pH 7.0 (<5.0-8.0) Urine Specific Rogers 1.010 (1.000-1.030) Urine Protein Negative mg/dL (NEG-TRACE) Urine Glucose (UA) Negative mg/dL (NEG) Urine Ketones (Stick) Negative mg/dL (NEG) Urine Blood Negative (NEG) Urine Nitrite Negative (NEG) Urine Bilirubin Negative (NEG) Urine Urobilinogen Dipstick 0.2 mg/dL (0.2 mg/dL) Urine Leukocyte Esterase Small (NEG) Urine RBC 0 /HPF (0-2) Urine WBC 11-20 /HPF (0-4) Urine Squamous Epithelial Cells Mod /LPF Urine Bacteria 0 /HPF (0-FEW) Urine Hyaline Casts Moderate /HPF Urine Mucus Slight /LPF Troponin I Quantitative 0.020 ng/mL (0.000-0.055) < 0.017 ng/mL (0.000-0.055) Test 12/18/20 06:20 12/19/20 05:00 White Blood Count 7.2 x10^3/uL (4.0-11.0) 5.7 x10^3/uL (4.0-11.0) Red Blood Count 4.13 x10^6/uL (4.30-5.70) 4.08 x10^6/uL (4.30-5.70) Hemoglobin 9.8 g/dL (13.0-17.5) 9.6 g/dL (13.0-17.5) Hematocrit 30.6 % (39.0-53.0) 30.3 % (39.0-53.0) Mean Corpuscular Volume 74 fL (79-100) 74 fL (79-100) Mean Corpuscular Hemoglobin 24 pg (25-35) 24 pg (25-35) Mean Corpuscular Hemoglobin Concent 32 g/dL (31-37) 32 g/dL (31-37) Red Cell Distribution Width 18.2 % (11.5-14.5) 18.5 % (11.5-14.5) Platelet Count 256 x10^3/uL (140-400) 254 x10^3/uL (140-400) Neutrophils (%) (Auto) 73 % (31-73) 57 % (31-73) Lymphocytes (%) (Auto) 16 % (24-48) 28 % (24-48) Monocytes (%) (Auto) 7 % (0-9) 8 % (0-9) Eosinophils (%) (Auto) 3 % (0-3) 6 % (0-3) Basophils (%) (Auto) 1 % (0-3) 1 % (0-3) Neutrophils # (Auto) 5.2 x10^3/uL (1.8-7.7) 3.2 x10^3/uL (1.8-7.7) Lymphocytes # (Auto) 1.2 x10^3/uL (1.0-4.8) 1.6 x10^3/uL (1.0-4.8) Monocytes # (Auto) 0.5 x10^3/uL (0.0-1.1) 0.5 x10^3/uL (0.0-1.1) Eosinophils # (Auto) 0.2 x10^3/uL (0.0-0.7) 0.3 x10^3/uL (0.0-0.7) Basophils # (Auto) 0.0 x10^3/uL (0.0-0.2) 0.0 x10^3/uL (0.0-0.2) Sodium Level 145 mmol/L (136-145) 144 mmol/L (136-145) Potassium Level 3.3 mmol/L (3.5-5.1) 3.9 mmol/L (3.5-5.1) Chloride Level 114 mmol/L (98-107) 112 mmol/L (98-107) Carbon Dioxide Level 25 mmol/L (21-32) 26 mmol/L (21-32) Anion Gap 6 (6-14) 6 (6-14) Blood Urea Nitrogen 14 mg/dL (8-26) 13 mg/dL (8-26) Creatinine 1.1 mg/dL (0.7-1.3) 1.2 mg/dL (0.7-1.3) Estimated GFR (Cockcroft-Gault) 76.3 69.0 Glucose Level 111 mg/dL (70-99) 93 mg/dL (70-99) Calcium Level 8.2 mg/dL (8.5-10.1) 9.0 mg/dL (8.5-10.1) Procalcitonin < 0.10 ng/mL (0.00-0.10) Laboratory Tests Test 12/19/20 05:00 White Blood Count 5.7 x10^3/uL (4.0-11.0) Red Blood Count 4.08 x10^6/uL (4.30-5.70) Hemoglobin 9.6 g/dL (13.0-17.5) Hematocrit 30.3 % (39.0-53.0) Mean Corpuscular Volume 74 fL (79-100) Mean Corpuscular Hemoglobin 24 pg (25-35) Mean Corpuscular Hemoglobin Concent 32 g/dL (31-37) Red Cell Distribution Width 18.5 % (11.5-14.5) Platelet Count 254 x10^3/uL (140-400) Neutrophils (%) (Auto) 57 % (31-73) Lymphocytes (%) (Auto) 28 % (24-48) Monocytes (%) (Auto) 8 % (0-9) Eosinophils (%) (Auto) 6 % (0-3) Basophils (%) (Auto) 1 % (0-3) Neutrophils # (Auto) 3.2 x10^3/uL (1.8-7.7) Lymphocytes # (Auto) 1.6 x10^3/uL (1.0-4.8) Monocytes # (Auto) 0.5 x10^3/uL (0.0-1.1) Eosinophils # (Auto) 0.3 x10^3/uL (0.0-0.7) Basophils # (Auto) 0.0 x10^3/uL (0.0-0.2) Sodium Level 144 mmol/L (136-145) Potassium Level 3.9 mmol/L (3.5-5.1) Chloride Level 112 mmol/L (98-107) Carbon Dioxide Level 26 mmol/L (21-32) Anion Gap 6 (6-14) Blood Urea Nitrogen 13 mg/dL (8-26) Creatinine 1.2 mg/dL (0.7-1.3) Estimated GFR (Cockcroft-Gault) 69.0 Glucose Level 93 mg/dL (70-99) Calcium Level 9.0 mg/dL (8.5-10.1) Microbiology 12/17/20 Urine Culture - Final, Complete 12/17/20 Blood Culture - Preliminary, Resulted NO GROWTH AFTER 1 DAY Medications Current Medications Atropine Sulfate (ATROPINE 1mg SYRINGE) 0.5 mg 1X ONCE IV Last administered on 12/17/20at 14:02; Start 12/17/20 at 14:00; Stop 12/17/20 at 14:01; Status DC Dextrose (Dextrose 50%-Water Syringe) 25 gm 1X ONCE IV ; Start 12/17/20 at 14:00; Stop 12/17/20 at 13:56; Status DC Dextrose (Dextrose 50%-Water Syringe) 25 gm STK-MED ONCE IV ; Start 12/17/20 at 13:54; Stop 12/17/20 at 13:56; Status DC Atropine Sulfate (ATROPINE 1mg SYRINGE) 1 mg 1X ONCE IV Last administered on 12/17/20at 14:16; Start 12/17/20 at 14:15; Stop 12/17/20 at 14:16; Status DC Dobutamine HCl/ Dextrose 250 ml @ 5.724 mls/ hr 1X ONCE IV Last administered on 12/17/20at 14:55; Start 12/17/20 at 14:30; Stop 12/19/20 at 10:35 Sodium Chloride 1,000 ml @ 1,000 mls/hr 1X ONCE IV Last administered on 12/17/20at 13:59; Start 12/17/20 at 14:30; Stop 12/17/20 at 15:29; Status DC Ondansetron HCl (Zofran) 4 mg PRN Q8HRS PRN IVP NAUSEA/VOMITING; Start 12/17/20 at 16:45; Stop 12/18/20 at 16:44; Status DC Dopamine HCl/ Dextrose 250 ml @ 17.888 mls/ hr 1X ONCE IV Last administered on 12/17/20at 18:45; Start 12/17/20 at 17:15; Stop 12/18/20 at 07:13; Status DC Aspirin (Ecotrin) 81 mg DAILY PO Last administered on 12/18/20at 09:02; Start 12/18/20 at 09:00 Folic Acid (Folic Acid) 1 mg DAILY PO Last administered on 12/18/20at 09:02; Start 12/18/20 at 09:00 Acetaminophen/ Hydrocodone Bitart (Lortab 5/325) 1 tab PRN Q4HRS PRN PO MODERATE TO SEVERE PAIN; Start 12/17/20 at 17:15 Levothyroxine Sodium (Synthroid) 150 mcg DAILY06 PO Last administered on 12/19/20at 05:55; Start 12/18/20 at 06:00 Pantoprazole Sodium (Protonix) 40 mg DAILYAC PO Last administered on 12/18/20at 09:02; Start 12/18/20 at 07:30 Ceftriaxone Sodium (Rocephin) 1 gm Q24H IVP Last administered on 12/18/20at 18:00; Start 12/17/20 at 18:00 Ondansetron HCl (Zofran) 4 mg PRN Q6HRS PRN IVP NAUSEA/VOMITING; Start 12/17/20 at 17:30 Al Hydroxide/Mg Hydroxide (Mylanta Plus Xs) 30 ml PRN Q3HRS PRN PO HEARTBURN / GAS; Start 12/17/20 at 17:30 Calcium Carbonate/ Glycine (Tums) 500 mg PRN Q3HRS PRN PO UPSET STOMACH; Start 12/17/20 at 17:30 Morphine Sulfate (Morphine Sulfate) 2 mg PRN Q1HR PRN IV MODERATE PAIN 4-6; Start 12/17/20 at 17:30 Acetaminophen/ Hydrocodone Bitart (Lortab 5/325) 1 tab PRN Q4HRS PRN PO MILD PAIN 1-3; Start 12/17/20 at 17:30 Acetaminophen (Tylenol) 650 mg PRN Q6HRS PRN PO Headaches, Temp > 101.5F; Start 12/17/20 at 17:30 Magnesium Hydroxide (Milk Of Magnesia) 2,400 mg PRN Q12HR PRN PO CONSTIPATION; Start 12/17/20 at 17:30 Heparin Sodium (Porcine) (Heparin Sodium) 5,000 unit Q12HR SQ Last administered on 12/18/20at 20:48; Start 12/17/20 at 21:00 Diphenhydramine HCl (Benadryl) 25 mg PRN QHS PRN IVP INSOMNIA; Start 12/17/20 at 17:30 Morphine Sulfate (Morphine Sulfate) 4 mg PRN Q4HRS PRN IVP PAIN SEVERE 7-10; Start 12/17/20 at 17:30 Potassium Chloride (Klor-Con) 40 meq 1X ONCE PO Last administered on 12/18/20at 12:21; Start 12/18/20 at 09:15; Stop 12/18/20 at 09:26; Status DC Dopamine HCl/ Dextrose 250 ml @ 17.86 mls/ hr CONT PRN IV SEE I/O RECORD Last administered on 12/18/20at 10:48; Start 12/18/20 at 10:30 Active Scripts Active Reported Senna Laxative (Sennosides) 8.6 Mg Tablet 2 Tab PO QHS 30 Days Refresh Optive Eye Drops (Carboxymethylcellulos/Glycerin) 15 Ml Drops 1 Drop EACHEYE BID Miralax (Polyethylene Glycol 3350) 17 Gm Powd.pack 1 Packet PO DAILY 2 Days dissolve in water Melatonin 3 Mg Capsule 3 Mg PO QHS Famotidine 20 Mg Tablet 20 Mg PO BID Loratadine 10 Mg Tablet 1 Tab PO DAILY Daily Vitamin Formula-Minerals (Multivitamin With Minerals) 1 Each Tablet 1 Tab PO DAILY 30 Days Keflex (Cephalexin) 500 Mg Capsule 1 Cap PO QID 7 Days Oxybutynin Chloride Er (Oxybutynin Chloride) 5 Mg Tab.er.24 1 Tab PO DAILY Levothyroxine Sodium 175 Mcg Tablet 1 Tab PO DAILY Eliquis (Apixaban) 5 Mg Tablet 1 Tab PO BID Amiodarone Hcl 200 Mg Tablet 1 Tab PO BID Aspir 81 (Aspirin) 81 Mg Tablet.dr 81 Mg PO DAILY Vitals/I & O Vital Sign - Last 24 Hours 12/18/20 12/18/20 12/18/20 12/18/20 09:00 10:00 11:00 12:00 Pulse 70 63 68 Resp 12 13 14 B/P (MAP) 165/79 (107) 167/79 (108) 166/83 (110) Pulse Ox 97 94 98 O2 Delivery Room Air Room Air Room Air Room Air 12/18/20 12/18/20 12/18/20 12/18/20 12:00 13:00 14:00 15:00 Temp 97.9 97.9 Pulse 65 56 60 54 Resp 12 14 20 14 B/P (MAP) 166/84 (111) 162/77 (105) 161/79 (106) 131/74 (93) Pulse Ox 96 97 99 98 O2 Delivery Room Air Room Air Room Air Room Air 12/18/20 12/18/20 12/18/20 12/18/20 16:00 20:00 20:00 23:00 Temp 98.5 98.5 98.5 98.5 Pulse 65 50 Resp 20 22 B/P (MAP) 138/67 (90) 118/64 (82) Pulse Ox 98 98 O2 Delivery Room Air Room Air Room Air Room Air 12/19/20 03:00 Temp 98.5 98.5 Pulse 50 Resp 22 B/P (MAP) 131/68 (89) Pulse Ox 98 O2 Delivery Room Air Intake and Output 12/18/20 12/18/20 12/19/20 15:00 23:00 07:00 Intake Total 412 ml 89 ml Output Total 2175 ml 450 ml 500 ml Balance -2175 ml -38 ml -411 ml Justicifation of Admission Dx: Justifications for Admission: Justification of Admission Dx: Yes Chronic Renal Failure: Metabolic Abnormality RAMONE GORE MD Dec 19, 2020 08:02
[2020-12-19] MEDS: PANTOPRAZOLE 40 MG TABLET.DR. PO SCH (10:16)
[2020-12-19] MEDS: FOLIC ACID 1 MG TABLET. PO SCH (10:16)
[2020-12-19] MEDS: ASPIRIN ENTERIC COATED 81 MG TABLET.DR. PO SCH (10:16)
[2020-12-19] MEDS: HEPARIN for SUB-Q USE 5,000 UNIT/ML VIAL. SQ SCH ×2 (10:19→21:01)
--- NOTE | 2020-12-19 11:38 | NUR ---
SS following up with discharge planning. SS reviewed pt chart and discussed with pt RN. Pt is currently on room air. COVID19 negative. Pt on IV Rocephin. Cardiology following. Pt transferred to room 667 from ICU. Pt is LTC resident from [facility], ; fax [phone]. Clinical updates phoned and faxed to [facility]. SS will continue to follow for discharge planning.
--- NOTE | 2020-12-19 12:50 | PDOC ---
POPEYE COTTON OPERATIONS PLANT ATTENDANT 12/19/20 1250: CARDIO Progress Notes Date and Time Date of Service 12/19/2020 Time of Evaluation 1210 Subjective Subjective: No Chest Pain, No shortness of breath, No Palpitations Vitals Vitals Vital Signs Date Time Temp Pulse Resp B/P (MAP) Pulse Ox O2 Delivery O2 Flow Rate FiO2 12/19/20 10:52 97.4 45 18 110/67 (81) 93 Room Air 97.4 Weight Weight [ ] Input and Output Intake and Output Intake and Output 12/19/20 07:00 Intake Total 501 ml Output Total 3125 ml Balance -2624 ml Intake Oral 240 ml IV Total 261 ml Output Urine Total 3125 ml Laboratory Labs Laboratory Tests Test 12/19/20 05:00 White Blood Count 5.7 x10^3/uL (4.0-11.0) Red Blood Count 4.08 x10^6/uL (4.30-5.70) Hemoglobin 9.6 g/dL (13.0-17.5) Hematocrit 30.3 % (39.0-53.0) Mean Corpuscular Volume 74 fL (79-100) Mean Corpuscular Hemoglobin 24 pg (25-35) Mean Corpuscular Hemoglobin Concent 32 g/dL (31-37) Red Cell Distribution Width 18.5 % (11.5-14.5) Platelet Count 254 x10^3/uL (140-400) Neutrophils (%) (Auto) 57 % (31-73) Lymphocytes (%) (Auto) 28 % (24-48) Monocytes (%) (Auto) 8 % (0-9) Eosinophils (%) (Auto) 6 % (0-3) Basophils (%) (Auto) 1 % (0-3) Neutrophils # (Auto) 3.2 x10^3/uL (1.8-7.7) Lymphocytes # (Auto) 1.6 x10^3/uL (1.0-4.8) Monocytes # (Auto) 0.5 x10^3/uL (0.0-1.1) Eosinophils # (Auto) 0.3 x10^3/uL (0.0-0.7) Basophils # (Auto) 0.0 x10^3/uL (0.0-0.2) Sodium Level 144 mmol/L (136-145) Potassium Level 3.9 mmol/L (3.5-5.1) Chloride Level 112 mmol/L (98-107) Carbon Dioxide Level 26 mmol/L (21-32) Anion Gap 6 (6-14) Blood Urea Nitrogen 13 mg/dL (8-26) Creatinine 1.2 mg/dL (0.7-1.3) Estimated GFR (Cockcroft-Gault) 69.0 Glucose Level 93 mg/dL (70-99) Calcium Level 9.0 mg/dL (8.5-10.1) Microbiology Micro Microbiology 12/17/20 Urine Culture - Final, Complete 12/17/20 Blood Culture - Preliminary, Resulted NO GROWTH AFTER 1 DAY Physical Exam HEENT: Neck Supple W Full Motion Chest: Symmetric LUNGS: Clear to Auscultation Heart: S1S2, RRR (SB) Abdomen: Soft N/T Extremities: No Edema, No Calf Tenderness Neurology: alert, follow commands Assessment Assessment 1. Possible fall and syncope: in the setting of bradycardia hypotension and hypo glycemia 2. Hypoglycemic reaction: noted BG of 31 in ED, none further 3. Sinus bradycardia: still needing small dose of dopamine at 1 mcg/kg/hr with staff reporting a30s when asleep. HR 40-50s no pauses currently 4. Hypovolemic shock: dehydrated. EF and LV WM nml 5. 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 PAFIB: Maintaining SR/SB 7. SOUMYA: Cr better after hydration 8. COPD 9. Acquired hypothyroidism: on replacement 10. UTI: recently started treatment 11. Rhabdomyolysis 12. Suspect dementia Recommendations 1. Hold amiodarone. No AV gracy blocking agents 2. ASA, hold eliquis for now 3. Avoid nephrotoxic agents 4. Will titrate off dopamine and monitor rhythm in the next 24 hours and reassess need for PPM. Discussed with son Justicifation of Admission Dx: Justifications for Admission: Justification of Admission Dx: Yes Chronic Renal Failure: Metabolic Abnormality NITA HAINES MD 12/19/202057: CARDIO Progress Notes Assessment Assessment Patient seen and examined. Agree with DIESEL POWER MECHANIC's assessment and plan. PAF with sinus bradycardia. Agree with holding amiodarone. 2D echo showed normal LV systolic function. Titrate dopamine off as tolerated. Continue intravenous hydration for hypovolemia Consider event monitor recording as an outpatient POPEYE COTTON APRN Dec 19, 2020 12:50 NITA HAINES MD Dec 19, 2020 20:58
[2020-12-19] MEDS: cefTRIAXone IV Push 1 GM VIAL. IVP SCH (18:00)
[2020-12-20] VITALS (7 sets, daily range): BP systolic 98–154; BP diastolic 55–84
[2020-12-20] MEDS: LEVOTHYROXINE 150 MCG TABLET PO SCH (06:06)
[2020-12-20] MEDS: PANTOPRAZOLE 40 MG TABLET.DR. PO SCH (06:06)
[2020-12-20 06:44] LABS: BASO # 0.1 x10^3/uL (0.0-0.2); BASO % 1 % (0-3); EOS # 0.4 x10^3/uL (0.0-0.7); EOS % 8 % (0-3); HEMATOCRIT 31.5 % (39.0-53.0); LYMPH # 2.1 x10^3/uL (1.0-4.8); LYMPH % 39 % (24-48); MEAN CORPUSCULAR HEMOGLOBIN 23 pg (25-35); MEAN CORPUSCULAR HGB CONC 32 g/dL (31-37); MEAN CORPUSCULAR VOLUME 73 fL (79-100); MONO # 0.5 x10^3/uL (0.0-1.1); MONO % 8 % (0-9); NEUT # 2.4 x10^3/uL (1.8-7.7); NEUT % 44 % (31-73); PLATELET COUNT 247 x10^3/uL (140-400); RED BLOOD COUNT 4.29 x10^6/uL (4.30-5.70); RED CELL DISTRIBUTION WIDTH 18.6 % (11.5-14.5); WHITE BLOOD COUNT 5.4 x10^3/uL (4.0-11.0)
[2020-12-20 07:00] LABS: ALBUMIN 2.7 g/dL (3.4-5.0); ALBUMIN/GLOBULIN RATIO 0.6 (1.0-1.7); CREATININE 1.3 mg/dL (0.7-1.3); GFR 62.9; POTASSIUM 3.9 mmol/L (3.5-5.1); TOTAL BILIRUBIN 0.3 mg/dL (0.2-1.0); TOTAL PROTEIN 7.3 g/dL (6.4-8.2)
[2020-12-20 07:15] LABS: CALCIUM 8.8 mg/dL (8.5-10.1)
[2020-12-20] MEDS: ASPIRIN ENTERIC COATED 81 MG TABLET.DR. PO SCH (09:07)
[2020-12-20] MEDS: FOLIC ACID 1 MG TABLET. PO SCH (09:07)
[2020-12-20] MEDS: HEPARIN for SUB-Q USE 5,000 UNIT/ML VIAL. SQ SCH ×2 (09:14→21:50)
--- NOTE | 2020-12-20 10:51 | PDOC ---
POPEYE COTTON [employer] ARCHITECT 12/20/20 1051: CARDIO Progress Notes Date and Time Date of Service 12/20/2020 Time of Evaluation 1030 Subjective Subjective: No Chest Pain, No shortness of breath, No Palpitations Vitals Vitals Vital Signs Date Time Temp Pulse Resp B/P (MAP) Pulse Ox O2 Delivery O2 Flow Rate FiO2 12/20/20 10:19 97.7 56 17 98/55 (69) 94 Room Air 97.7 Weight Weight [ ] Input and Output Intake and Output Intake and Output 12/20/20 07:00 Intake Total 670 ml Output Total 2375 ml Balance -1705 ml Intake Oral 670 ml Output Urine Total 2375 ml Laboratory Labs Laboratory Tests Test 12/20/20 06:00 White Blood Count 5.4 x10^3/uL (4.0-11.0) Red Blood Count 4.29 x10^6/uL (4.30-5.70) Hemoglobin 10.0 g/dL (13.0-17.5) Hematocrit 31.5 % (39.0-53.0) Mean Corpuscular Volume 73 fL (79-100) Mean Corpuscular Hemoglobin 23 pg (25-35) Mean Corpuscular Hemoglobin Concent 32 g/dL (31-37) Red Cell Distribution Width 18.6 % (11.5-14.5) Platelet Count 247 x10^3/uL (140-400) Neutrophils (%) (Auto) 44 % (31-73) Lymphocytes (%) (Auto) 39 % (24-48) Monocytes (%) (Auto) 8 % (0-9) Eosinophils (%) (Auto) 8 % (0-3) Basophils (%) (Auto) 1 % (0-3) Neutrophils # (Auto) 2.4 x10^3/uL (1.8-7.7) Lymphocytes # (Auto) 2.1 x10^3/uL (1.0-4.8) Monocytes # (Auto) 0.5 x10^3/uL (0.0-1.1) Eosinophils # (Auto) 0.4 x10^3/uL (0.0-0.7) Basophils # (Auto) 0.1 x10^3/uL (0.0-0.2) Sodium Level 143 mmol/L (136-145) Potassium Level 3.9 mmol/L (3.5-5.1) Chloride Level 109 mmol/L (98-107) Carbon Dioxide Level 27 mmol/L (21-32) Anion Gap 7 (6-14) Blood Urea Nitrogen 16 mg/dL (8-26) Creatinine 1.3 mg/dL (0.7-1.3) Estimated GFR (Cockcroft-Gault) 62.9 BUN/Creatinine Ratio 12 (6-20) Glucose Level 88 mg/dL (70-99) Calcium Level 8.8 mg/dL (8.5-10.1) Total Bilirubin 0.3 mg/dL (0.2-1.0) Aspartate Amino Transf (AST/SGOT) 27 U/L (15-37) Alanine Aminotransferase (ALT/SGPT) 36 U/L (16-63) Alkaline Phosphatase 100 U/L (46-116) Total Protein 7.3 g/dL (6.4-8.2) Albumin 2.7 g/dL (3.4-5.0) Albumin/Globulin Ratio 0.6 (1.0-1.7) Microbiology Micro Microbiology 12/17/20 Urine Culture - Final, Complete 12/17/20 Blood Culture - Preliminary, Resulted NO GROWTH AFTER 2 DAYS Physical Exam HEENT: Neck Supple W Full Motion Chest: Symmetric LUNGS: Clear to Auscultation Heart: S1S2, RRR (SR/SB) Abdomen: Soft N/T Extremities: No Edema, No Calf Tenderness Neurology: alert, follow commands, confused Assessment Assessment 1. Possible fall and syncope: in the setting of bradycardia hypotension and hypoglycemia 2. Hypoglycemic reaction: noted BG of 31 in ED, none further 3. Sinus bradycardia: HR 40-50s no pauses/blocks. was on high dose amiodarone 4. Hypovolemic shock: dehydrated. EF and LV WM nml, resolved 5. 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 PAFIB: Maintaining SR/SB baseline 50s 7. SOUMYA: Cr better after hydration 8. COPD 9. Acquired hypothyroidism: on replacement 10. UTI: recently started treatment 11. Rhabdomyolysis 12. Suspect dementia Recommendations 1. Stop amiodarone. No AV gracy blocking agents 2. ASA for stroke prevention, possibly not a good candidate for chronic anticoagulation 3. Avoid nephrotoxic agents 4. Off dopamine. HR in the 50s but dips in the upper 30s when asleep no pauses or heart blocks. [facility]. 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 Agree with SKI LIFT MECHANIC's assessment and plan. PAF with sinus bradycardia. Stop amiodarone. Patient presently off dopamine drip. 2D echo showed normal LV systolic function. Continue intravenous hydration for hypovolemia Consider event monitor recording as an outpatient POPEYE COTTON APRN Dec 20, 2020 10:51 NITA HAINES MD Dec 21, 2020 09:04
--- NOTE | 2020-12-20 10:52 | PDOC ---
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 QTc 460 covid neg Plan: icu bed Dobutamine infusion initiated ED; will d/c dobutamine infusion / admit patient to ICU Consultation placed to cardiology Will obtain echocardiogram Will provide IV fluids Unknown baseline renal function; if no improvement in eGFR with IV fluids will consider consultation to cardiology depending on how aggressive family would like to be and if we are able to obtain lab values with baseline kidney function. CK does not meet diagnostic criteria for rhabdomyolysis, helpful should improve with IV fluids. TSH pending Continue treatment of recent UTI with Rocephin 1 g daily Resume home medications FEN - Cardiac diet PPX - Heparin FULL CODE Dispo - ICU for above Surrogate decision-maker is his son (Mayco Coronado) 2D echo normal LV systolic function.9-29 Titrate dopamine d/c intravenous hydration for hypovolemia event monitor recording as an outpatient Critical care time 34 minutes spent reviewing chart, Justifications for Admission Justifications for Admission Other Justification History of Present Illness History of Present Illness Patient is a 89-year-old male with past medical history CVA, TIA, hypothyroidism, atrial flutter, HTN, HLD, anemia, GERD, multiple myeloma, who [facility] being found down next to his toilet. Upon EMS arrival he was noted to be altered with blood pressure 55/30 mmHg and heart rate in the 30s. Upon arrival in the ED he was saturating 100% on room air. Chest x-ray showed bilateral interstitial opacities, concerning for chronic interstitial lung disease versus pulmonary edema. Pelvis x-ray showed no acute osseous process in the pelvis. CT head and cervical spine showed no acute intracranial abnormality and no definite acute process of the cervical spine. Labs on admission showed WBC 5.8, hemoglobin 9.6, hematocrit 30.4, creatinine 1.8, CBG 133, troponin 0.020, CK 1086, albumin 2.8. His rapid COVID- 19 was negative. He was placed on dobutamine infusion with improvement in heart rate and blood pressure. He was recently prescribed Keflex for UTI. Reportedly he is DNR. Admitted patient to ICU with cardiology consult for further medical management. Transferred from ICU off dopamine GTT. Heart rate still in the low 50s. Little more alert today seen bedside eating. He is asking if Lara catheter can be discontinued. Nurse practitioner [facility] called to note he just had a Pseudomonas urine result positive. Starting patient on IV Levaquin. Vitals/I&O Vitals/I&O: Vital Signs Date Time Temp Pulse Resp B/P (MAP) Pulse Ox O2 Delivery O2 Flow Rate FiO2 12/20/20 10:19 97.7 56 17 98/55 (69) 94 Room Air 97.7 I & O 12/19/20 12/19/20 12/20/20 15:00 23:00 07:00 Intake Total 350 ml 320 ml 0 ml Output Total 1100 ml 550 ml 725 ml Balance -750 ml -230 ml -725 ml Physical Exam Physical Exam: General: Alert, Cooperative, No acute distress HEENT: PERRLA, EOMI Lungs: Decreased breath sounds bilaterally, Normal air movement Heart: Bradycardic, no murmurs Cardiovascular: S1, S2 Abdomen: Normal bowel sounds, Soft, No tenderness Extremities: 2+ bilateral lower extremity edema. No clubbing, No cyanosis Skin: No rashes, No significant lesion Neuro: Normal tone, Sensation intact Psych/Mental Status: Somnolent, lethargic. General: Alert, Cooperative, No acute distress Heart: Regular rate (SR), Normal S1, Normal S2, No murmurs Abdomen: Soft, No tenderness Extremities: No cyanosis, No edema Skin: No breakdown, No significant lesion Labs Labs: Laboratory Tests Test 12/20/20 06:00 White Blood Count 5.4 x10^3/uL (4.0-11.0) Red Blood Count 4.29 x10^6/uL (4.30-5.70) Hemoglobin 10.0 g/dL (13.0-17.5) Hematocrit 31.5 % (39.0-53.0) Mean Corpuscular Volume 73 fL (79-100) Mean Corpuscular Hemoglobin 23 pg (25-35) Mean Corpuscular Hemoglobin Concent 32 g/dL (31-37) Red Cell Distribution Width 18.6 % (11.5-14.5) Platelet Count 247 x10^3/uL (140-400) Neutrophils (%) (Auto) 44 % (31-73) Lymphocytes (%) (Auto) 39 % (24-48) Monocytes (%) (Auto) 8 % (0-9) Eosinophils (%) (Auto) 8 % (0-3) Basophils (%) (Auto) 1 % (0-3) Neutrophils # (Auto) 2.4 x10^3/uL (1.8-7.7) Lymphocytes # (Auto) 2.1 x10^3/uL (1.0-4.8) Monocytes # (Auto) 0.5 x10^3/uL (0.0-1.1) Eosinophils # (Auto) 0.4 x10^3/uL (0.0-0.7) Basophils # (Auto) 0.1 x10^3/uL (0.0-0.2) Sodium Level 143 mmol/L (136-145) Potassium Level 3.9 mmol/L (3.5-5.1) Chloride Level 109 mmol/L (98-107) Carbon Dioxide Level 27 mmol/L (21-32) Anion Gap 7 (6-14) Blood Urea Nitrogen 16 mg/dL (8-26) Creatinine 1.3 mg/dL (0.7-1.3) Estimated GFR (Cockcroft-Gault) 62.9 BUN/Creatinine Ratio 12 (6-20) Glucose Level 88 mg/dL (70-99) Calcium Level 8.8 mg/dL (8.5-10.1) Total Bilirubin 0.3 mg/dL (0.2-1.0) Aspartate Amino Transf (AST/SGOT) 27 U/L (15-37) Alanine Aminotransferase (ALT/SGPT) 36 U/L (16-63) Alkaline Phosphatase 100 U/L (46-116) Total Protein 7.3 g/dL (6.4-8.2) Albumin 2.7 g/dL (3.4-5.0) Albumin/Globulin Ratio 0.6 (1.0-1.7) Assessment and Plan Assessmemt and Plan Problems Medical Problems: (1) Cardiogenic shock Status: Acute (2) Elevated CPK Status: Acute Comment Review of Relevant I have reviewed the following items christos (where applicable) has been applied. Justifications for Admission General Conditions Other justification for admit: Cardiogenic shock Other Justification ADAMA EARLY MD Dec 20, 2020 10:52
[2020-12-20] MEDS ORDERED: HYDROcodone/APAP 5/325MG 1 TAB TABLET PO PRN (10:56)
[2020-12-21 02:00] VITALS: BP 141/86
[2020-12-21 04:41] LABS: BASO % 1 % (0-3); EOS # 0.4 x10^3/uL (0.0-0.7); EOS % 7 % (0-3); HEMOGLOBIN 10.5 g/dL (13.0-17.5); LYMPH # 2.1 x10^3/uL (1.0-4.8); LYMPH % 39 % (24-48); MEAN CORPUSCULAR HEMOGLOBIN 24 pg (25-35); MEAN CORPUSCULAR HGB CONC 32 g/dL (31-37); MEAN CORPUSCULAR VOLUME 74 fL (79-100); MONO # 0.5 x10^3/uL (0.0-1.1); MONO % 9 % (0-9); NEUT # 2.5 x10^3/uL (1.8-7.7); NEUT % 45 % (31-73); PLATELET COUNT 252 x10^3/uL (140-400); RED BLOOD COUNT 4.45 x10^6/uL (4.30-5.70); RED CELL DISTRIBUTION WIDTH 18.6 % (11.5-14.5); WHITE BLOOD COUNT 5.5 x10^3/uL (4.0-11.0)
[2020-12-21 05:10] LABS: CREATININE 1.4 mg/dL (0.7-1.3); GFR 57.7; POTASSIUM 3.9 mmol/L (3.5-5.1)
[2020-12-21] MEDS: PANTOPRAZOLE 40 MG TABLET.DR. PO SCH (06:13)
[2020-12-21] MEDS: LEVOTHYROXINE 150 MCG TABLET PO SCH (06:13)
[2020-12-21 07:45] VITALS: BP 148/80
[2020-12-21] MEDS: ASPIRIN ENTERIC COATED 81 MG TABLET.DR. PO SCH (08:55)
[2020-12-21] MEDS: FOLIC ACID 1 MG TABLET. PO SCH (08:55)
[2020-12-21] MEDS: HEPARIN for SUB-Q USE 5,000 UNIT/ML VIAL. SQ SCH (09:01)
[2020-12-21 10:26] VITALS: BP 111/75
--- NOTE | 2020-12-21 10:39 | PDOC ---
POPEYE COTTON HIGH SCHOOL VICE PRINCIPAL 12/21/20 1039: CARDIO Progress Notes Date and Time Date of Service 12/21/2020 Time of Evaluation 0945 Subjective Subjective: No Chest Pain, No shortness of breath, No Palpitations Vitals Vitals Vital Signs Date Time Temp Pulse Resp B/P (MAP) Pulse Ox O2 Delivery O2 Flow Rate FiO2 12/21/20 10:26 97.7 60 18 111/75 (87) 94 Room Air 97.7 Weight Weight [ ] Input and Output Intake and Output Intake and Output 12/21/20 07:00 Intake Total 1260 ml Output Total 275 ml Balance 985 ml Intake Oral 1260 ml Output Urine Total 275 ml # Voids 2 Laboratory Labs Laboratory Tests Test 12/21/20 04:15 White Blood Count 5.5 x10^3/uL (4.0-11.0) Red Blood Count 4.45 x10^6/uL (4.30-5.70) Hemoglobin 10.5 g/dL (13.0-17.5) Hematocrit 33.0 % (39.0-53.0) Mean Corpuscular Volume 74 fL (79-100) Mean Corpuscular Hemoglobin 24 pg (25-35) Mean Corpuscular Hemoglobin Concent 32 g/dL (31-37) Red Cell Distribution Width 18.6 % (11.5-14.5) Platelet Count 252 x10^3/uL (140-400) Neutrophils (%) (Auto) 45 % (31-73) Lymphocytes (%) (Auto) 39 % (24-48) Monocytes (%) (Auto) 9 % (0-9) Eosinophils (%) (Auto) 7 % (0-3) Basophils (%) (Auto) 1 % (0-3) Neutrophils # (Auto) 2.5 x10^3/uL (1.8-7.7) Lymphocytes # (Auto) 2.1 x10^3/uL (1.0-4.8) Monocytes # (Auto) 0.5 x10^3/uL (0.0-1.1) Eosinophils # (Auto) 0.4 x10^3/uL (0.0-0.7) Basophils # (Auto) 0.0 x10^3/uL (0.0-0.2) Sodium Level 144 mmol/L (136-145) Potassium Level 3.9 mmol/L (3.5-5.1) Chloride Level 109 mmol/L (98-107) Carbon Dioxide Level 27 mmol/L (21-32) Anion Gap 8 (6-14) Blood Urea Nitrogen 18 mg/dL (8-26) Creatinine 1.4 mg/dL (0.7-1.3) Estimated GFR (Cockcroft-Gault) 57.7 Glucose Level 85 mg/dL (70-99) Calcium Level 9.0 mg/dL (8.5-10.1) Microbiology Micro Microbiology 12/17/20 Urine Culture - Final, Complete 12/17/20 Blood Culture - Preliminary, Resulted NO GROWTH AFTER 3 DAYS Physical Exam HEENT: Neck Supple W Full Motion Chest: Symmetric LUNGS: Clear to Auscultation Heart: S1S2, RRR (SR/SB) Abdomen: Soft N/T Extremities: No Edema, No Calf Tenderness Neurology: alert, follow commands, confused Assessment Assessment 1. Possible fall and syncope: in the setting of bradycardia hypotension and hypoglycemia 2. Hypoglycemic reaction: noted BG of 31 in ED, none further 3. Sinus bradycardia: HR 40-50s no pauses/blocks treated initially with dopamine. was on high dose amiodarone 4. Hypovolemic shock: dehydrated. EF and LV WM nml, resolved 5. 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 PAFIB: no further bradycardia overnight maintaining SR in the 60s. 7. SOUMYA: Cr better after hydration 8. COPD 9. Acquired hypothyroidism: on replacement 10. UTI: recently started treatment 11. Rhabdomyolysis 12. Suspect dementia Recommendations 1. Stop amiodarone. No AV gracy blocking agents 2. ASA for stroke prevention, possibly not a good candidate for chronic anticoagulation 3. Avoid nephrotoxic agents 4. 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 Discussed with RN Justicifation of Admission Dx: Justifications for Admission: Justification of Admission Dx: Yes Chronic Renal Failure: Metabolic Abnormality KEO HALLMAN MD 12/23/20 1315: CARDIO Progress Notes Plan Plan Late entry for 12/21/2020 Pt. seen and examined. Agree with above BAG TESTER note. POPEYE COTTON APRN Dec 21, 2020 10:39 KEO HALLMAN MD Dec 23, 2020 13:15
--- NOTE | 2020-12-21 11:17 | PDOC ---
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 QTc 460 covid neg Plan: icu bed Dobutamine infusion initiated ED; will d/c dobutamine infusion / admit patient to ICU Consultation placed to cardiology Will obtain echocardiogram Will provide IV fluids Unknown baseline renal function; if no improvement in eGFR with IV fluids will consider consultation to cardiology depending on how aggressive family would like to be and if we are able to obtain lab values with baseline kidney function. CK does not meet diagnostic criteria for rhabdomyolysis, helpful should improve with IV fluids. TSH pending Continue treatment of recent UTI with Rocephin 1 g daily Resume home medications FEN - Cardiac diet PPX - Heparin FULL CODE Dispo - ICU for above Surrogate decision-maker is his son (Mayco Coronado) 2D echo normal LV systolic function.9-29 Titrate dopamine d/c intravenous hydration for hypovolemia event monitor recording as an outpatient Critical care time 34 minutes spent reviewing chart, Justifications for Admission Justifications for Admission Other Justification History of Present Illness History of Present Illness Mr Coronado is a 89-year-old male with past medical history CVA, TIA, hypothyroidism, atrial flutter, HTN, HLD, anemia, GERD, multiple myeloma, who [facility] being found down next to his toilet. Upon EMS arrival he was noted to be altered with blood pressure 55/30 mmHg and heart rate in the 30s. Upon arrival in the ED he was saturating 100% on room air. Chest x-ray showed bilateral interstitial opacities, concerning for chronic interstitial lung disease versus pulmonary edema. Pelvis x-ray showed no acute osseous process in the pelvis. CT head and cervical spine showed no acute intracranial abnormality and no definite acute process of the cervical s pine. Labs on admission showed WBC 5.8, hemoglobin 9.6, hematocrit 30.4, creatinine 1.8, CBG 133, troponin 0.020, CK 1086, albumin 2.8. His rapid COVID- 19 was negative. He was placed on dobutamine infusion with improvement in heart rate and blood pressure. He was recently prescribed Keflex for UTI. Reportedly he is DNR. Admitted patient to ICU with cardiology consult for further medical management. 12/20: Transferred from ICU off dopamine GTT. Heart rate still in the low 50s. Little more alert today seen bedside eating. He is asking if Lara catheter can be discontinued. Nurse practitioner [facility] called to note he just had a Pseudomonas urine result positive. Starting patient on IV Levaquin. Eating well. Pleasantly confused. Tolerated Levaquin well. Plan to hold amiodarone per cardiology. Okay to return to SNF on Levaquin for 10 days with follow-up labs. Vitals/I&O Vitals/I&O: Vital Signs Date Time Temp Pulse Resp B/P (MAP) Pulse Ox O2 Delivery O2 Flow Rate FiO2 12/21/20 10:26 97.7 60 18 111/75 (87) 94 Room Air 97.7 I & O 0 12/20/20 12/20/20 12/21/20 15:00 23:00 07:00 Intake Total 660 ml 600 ml 0 ml Output Total 275 ml Balance 660 ml 325 ml 0 ml Physical Exam Physical Exam: General: Alert, Cooperative, No acute distress HEENT: PERRLA, EOMI Lungs: Decreased breath sounds bilaterally, Normal air movement Heart: Bradycardic, no murmurs Cardiovascular: S1, S2 Abdomen: Normal bowel sounds, Soft, No tenderness Extremities: 2+ bilateral lower extremity edema. No clubbing, No cyanosis Skin: No rashes, No significant lesion Neuro: Normal tone, Sensation intact Psych/Mental Status: Somnolent, lethargic. General: Alert, Cooperative, No acute distress Heart: Regular rate (SR), Normal S1, Normal S2, No murmurs Abdomen: Soft, No tenderness Extremities: No cyanosis, No edema Skin: No breakdown, No significant lesion Labs Labs: Laboratory Tests Test 12/21/20 04:15 White Blood Count 5.5 x10^3/uL (4.0-11.0) Red Blood Count 4.45 x10^6/uL (4.30-5.70) Hemoglobin 10.5 g/dL (13.0-17.5) Hematocrit 33.0 % (39.0-53.0) Mean Corpuscular Volume 74 fL (79-100) Mean Corpuscular Hemoglobin 24 pg (25-35) Mean Corpuscular Hemoglobin Concent 32 g/dL (31-37) Red Cell Distribution Width 18.6 % (11.5-14.5) Platelet Count 252 x10^3/uL (140-400) Neutrophils (%) (Auto) 45 % (31-73) Lymphocytes (%) (Auto) 39 % (24-48) Monocytes (%) (Auto) 9 % (0-9) Eosinophils (%) (Auto) 7 % (0-3) Basophils (%) (Auto) 1 % (0-3) Neutrophils # (Auto) 2.5 x10^3/uL (1.8-7.7) Lymphocytes # (Auto) 2.1 x10^3/uL (1.0-4.8) Monocytes # (Auto) 0.5 x10^3/uL (0.0-1.1) Eosinophils # (Auto) 0.4 x10^3/uL (0.0-0.7) Basophils # (Auto) 0.0 x10^3/uL (0.0-0.2) Sodium Level 144 mmol/L (136-145) Potassium Level 3.9 mmol/L (3.5-5.1) Chloride Level 109 mmol/L (98-107) Carbon Dioxide Level 27 mmol/L (21-32) Anion Gap 8 (6-14) Blood Urea Nitrogen 18 mg/dL (8-26) Creatinine 1.4 mg/dL (0.7-1.3) Estimated GFR (Cockcroft-Gault) 57.7 Glucose Level 85 mg/dL (70-99) Calcium Level 9.0 mg/dL (8.5-10.1) Assessment and Plan Assessmemt and Plan Problems Medical Problems: (1) Cardiogenic shock Status: Acute (2) Elevated CPK Status: Acute Comment Review of Relevant I have reviewed the following items christos (where applicable) has been applied. Medications: Current Medications Medications (Trade) Dose Ordered Sig/Benny Route PRN Reason Start Time Stop Time Status Last Admin Dose Admin Levofloxacin/ Dextrose 100 ml @ 100 mls/hr 1X ONCE IV 12/20/20 12:00 12/20/20 12:59 DC 12/20/20 12:14 Levofloxacin (Levaquin) 500 mg DAILY06 PO 12/21/20 06:00 10/1/21 06:13 Justifications for Admission General Conditions Other justification for admit: Cardiogenic shock Other Justification ADAMA EARLY MD Dec 21, 2020 11:17
[2020-12-21] MEDS ORDERED: LEVO500T8 PO (11:20)
--- NOTE | 2020-12-21 11:22 | SNU/HH DC ---
DISCHARGE ORDERS DISCHARGE INFORMATION: DISCHARGE DATE: Dec 21, 2020 FINAL DIAGNOSIS Problems Medical Problems: (1) Cardiogenic shock Status: Acute (2) Elevated CPK Status: Acute CONDITION ON DISCHARGE: Stable CODE STATUS: Code Status: DNR/DNI ASSISTED: SNF STAY <30 DAYS: Yes POST DISCHARGE ORDERS: ACTIVITY ORDERS: Activity as tolerated WEIGHT BEARING STATUS: As tolerated DIET AFTER DISCHARGE: Regular WOUND/INCISION CARE: Keep wound/cast CDI CHECKS AFTER DISCHARGE: CHECKS AFTER DISCHARGE: Check blood press - daily, Check your Temp as needed, Weigh Yourself Daily FOLLOW-UP: Additional Instructions: Post-void residual q shift, straight cath prn for urine > 150cc [facility]/[address] [address] TREATMENT/EQUIPMENT ORDERS: Physical Therapy For: Evalulation/Treatment Occupational Therapy For: Evaluation/Treatment DISCHARGE MEDICATIONS: Home Meds Active Scripts Levofloxacin (LEVOFLOXACIN) 500 Mg Tablet, 500 MG PO DAILY06 for Pseudomonas UTI for 10 Days, #10 TAB Prov:ADAMA EARLY MD 12/21/20 Reported Medications Sennosides (SENNA LAXATIVE) 8.6 Mg Tablet, 2 TAB PO QHS for constipation for 30 Days, #60 TAB 0 Refills 12/18/20 Carboxymethylcellulos/Glycerin (REFRESH OPTIVE EYE DROPS) 15 Ml Drops, 1 DROP EACHEYE BID for dry eyes, #30 ML 6 Refills 12/18/20 Polyethylene Glycol 3350 (MIRALAX) 17 Gm Powd.pack, 1 PACKET PO DAILY for constipation for 2 Days, #2 PACKET 0 Refills dissolve in water 12/18/20 Melatonin (Melatonin) 3 Mg Capsule, 3 MG PO QHS for insomnia, CAP 12/18/20 Famotidine (FAMOTIDINE) 20 Mg Tablet, 20 MG PO BID for gerd, TAB 12/18/20 Loratadine (LORATADINE) 10 Mg Tablet, 1 TAB PO DAILY for allergies, #30 TAB 5 Refills 12/18/20 Multivitamin With Minerals (DAILY VITAMIN FORMULA-MINERALS) 1 Each Tablet, 1 TAB PO DAILY for supplement for 30 Days, #30 TAB 0 Refills 12/18/20 Levothyroxine Sodium (LEVOTHYROXINE SODIUM) 175 Mcg Tablet, 1 TAB PO DAILY for thyriod 12/17/20 Aspirin (ASPIR 81) 81 Mg Tablet.dr, 81 MG PO DAILY, TAB 07/13/13 Discontinued Reported Medications Cephalexin (KEFLEX) 500 Mg Capsule, 1 CAP PO QID for bladder for 7 Days 12/17/20 Oxybutynin Chloride (OXYBUTYNIN CHLORIDE ER) 5 Mg Tab.er.24, 1 TAB PO DAILY for bladder 12/17/20 Apixaban (ELIQUIS) 5 Mg Tablet, 1 TAB PO BID for heart 12/17/20 Amiodarone Hcl (AMIODARONE HCL) 200 Mg Tablet, 1 TAB PO BID for heart 12/17/20 [Smz/Tmp] No Conflict Check, for bladder 12/17/20 Metoprolol Tartrate (METOPROLOL TARTRATE) 25 Mg Tablet, 1 TAB PO DAILY for bp 12/17/20 Atorvastatin Calcium (ATORVASTATIN CALCIUM) 40 Mg Tablet, 1 TAB PO DAILY for lipids 12/17/20 Amiodarone Hcl (AMIODARONE HCL) 400 Mg Tablet, 400 TAB PO DAILY for heart 12/17/20 Hydroxyzine Hcl (HYDROXYZINE HCL) 25 Mg Tablet, 1 TAB PO DAILY for bp 12/17/20 Omeprazole (OMEPRAZOLE) 40 Mg Capsule.dr, 1 CAP PO DAILY, #30 CAP 3 Refills 09/07/14 Folic Acid (FOLIC ACID) 1 Mg Tablet, 1 TAB PO DAILY, #90 TAB 1 Refill 09/07/14 Amlodipine Besylate (AMLODIPINE BESYLATE) 2.5 Mg Tablet, 1 TAB PO DAILY, #30 TAB 5 Refills 09/07/14 Levothyroxine Sodium (LEVOTHYROXINE SODIUM) 150 Mcg Tablet, 1 TAB PO DAILY, #30 TAB 5 Refills 09/07/14 Hydrocodone Bit/Acetaminophen (HYDROCODONE-APAP 5-325 ) 1 Each Tablet, 1 EACH PO PRN Q4HRS PRN for PAIN 07/13/13 ADAMA EARLY MD Dec 21, 2020 11:22
--- NOTE | 2020-12-21 11:23 | PDOC3 ---
Discharge Summary Visit Information Date of Admission: Dec 17, 2020 Date of Discharge: Dec 21, 2020 Admitting Diagnosis: Syncope, symptomatic bradycardia Final Diagnosis Problems Medical Problems: (1) Cardiogenic shock Status: Acute (2) Elevated CPK Status: Acute Brief Hospital Course Allergies Allergies Coded Allergies Type Severity Reaction Last Updated Verified No Known Drug Allergies 07/13/13 No Vital Signs Vital Signs Date Time Temp Pulse Resp B/P (MAP) Pulse Ox O2 Delivery O2 Flow Rate FiO2 12/21/20 10:26 97.7 60 18 111/75 (87) 94 Room Air 97.7 Lab Results Laboratory Tests Test 12/20/20 06:00 12/21/20 04:15 White Blood Count 5.4 x10^3/uL (4.0-11.0) 5.5 x10^3/uL (4.0-11.0) Red Blood Count 4.29 x10^6/uL (4.30-5.70) 4.45 x10^6/uL (4.30-5.70) Hemoglobin 10.0 g/dL (13.0-17.5) 10.5 g/dL (13.0-17.5) Hematocrit 31.5 % (39.0-53.0) 33.0 % (39.0-53.0) Mean Corpuscular Volume 73 fL (79-100) 74 fL (79-100) Mean Corpuscular Hemoglobin 23 pg (25-35) 24 pg (25-35) Mean Corpuscular Hemoglobin Concent 32 g/dL (31-37) 32 g/dL (31-37) Red Cell Distribution Width 18.6 % (11.5-14.5) 18.6 % (11.5-14.5) Platelet Count 247 x10^3/uL (140-400) 252 x10^3/uL (140-400) Neutrophils (%) (Auto) 44 % (31-73) 45 % (31-73) Lymphocytes (%) (Auto) 39 % (24-48) 39 % (24-48) Monocytes (%) (Auto) 8 % (0-9) 9 % (0-9) Eosinophils (%) (Auto) 8 % (0-3) 7 % (0-3) Basophils (%) (Auto) 1 % (0-3) 1 % (0-3) Neutrophils # (Auto) 2.4 x10^3/uL (1.8-7.7) 2.5 x10^3/uL (1.8-7.7) Lymphocytes # (Auto) 2.1 x10^3/uL (1.0-4.8) 2.1 x10^3/uL (1.0-4.8) Monocytes # (Auto) 0.5 x10^3/uL (0.0-1.1) 0.5 x10^3/uL (0.0-1.1) Eosinophils # (Auto) 0.4 x10^3/uL (0.0-0.7) 0.4 x10^3/uL (0.0-0.7) Basophils # (Auto) 0.1 x10^3/uL (0.0-0.2) 0.0 x10^3/uL (0.0-0.2) Sodium Level 143 mmol/L (136-145) 144 mmol/L (136-145) Potassium Level 3.9 mmol/L (3.5-5.1) 3.9 mmol/L (3.5-5.1) Chloride Level 109 mmol/L (98-107) 109 mmol/L (98-107) Carbon Dioxide Level 27 mmol/L (21-32) 27 mmol/L (21-32) Anion Gap 7 (6-14) 8 (6-14) Blood Urea Nitrogen 16 mg/dL (8-26) 18 mg/dL (8-26) Creatinine 1.3 mg/dL (0.7-1.3) 1.4 mg/dL (0.7-1.3) Estimated GFR (Cockcroft-Gault) 62.9 57.7 BUN/Creatinine Ratio 12 (6-20) Glucose Level 88 mg/dL (70-99) 85 mg/dL (70-99) Calcium Level 8.8 mg/dL (8.5-10.1) 9.0 mg/dL (8.5-10.1) Total Bilirubin 0.3 mg/dL (0.2-1.0) Aspartate Amino Transf (AST/SGOT) 27 U/L (15-37) Alanine Aminotransferase (ALT/SGPT) 36 U/L (16-63) Alkaline Phosphatase 100 U/L (46-116) Total Protein 7.3 g/dL (6.4-8.2) Albumin 2.7 g/dL (3.4-5.0) Albumin/Globulin Ratio 0.6 (1.0-1.7) Laboratory Tests Test 12/21/20 04:15 White Blood Count 5.5 x10^3/uL (4.0-11.0) Red Blood Count 4.45 x10^6/uL (4.30-5.70) Hemoglobin 10.5 g/dL (13.0-17.5) Hematocrit 33.0 % (39.0-53.0) Mean Corpuscular Volume 74 fL (79-100) Mean Corpuscular Hemoglobin 24 pg (25-35) Mean Corpuscular Hemoglobin Concent 32 g/dL (31-37) Red Cell Distribution Width 18.6 % (11.5-14.5) Platelet Count 252 x10^3/uL (140-400) Neutrophils (%) (Auto) 45 % (31-73) Lymphocytes (%) (Auto) 39 % (24-48) Monocytes (%) (Auto) 9 % (0-9) Eosinophils (%) (Auto) 7 % (0-3) Basophils (%) (Auto) 1 % (0-3) Neutrophils # (Auto) 2.5 x10^3/uL (1.8-7.7) Lymphocytes # (Auto) 2.1 x10^3/uL (1.0-4.8) Monocytes # (Auto) 0.5 x10^3/uL (0.0-1.1) Eosinophils # (Auto) 0.4 x10^3/uL (0.0-0.7) Basophils # (Auto) 0.0 x10^3/uL (0.0-0.2) Sodium Level 144 mmol/L (136-145) Potassium Level 3.9 mmol/L (3.5-5.1) Chloride Level 109 mmol/L (98-107) Carbon Dioxide Level 27 mmol/L (21-32) Anion Gap 8 (6-14) Blood Urea Nitrogen 18 mg/dL (8-26) Creatinine 1.4 mg/dL (0.7-1.3) Estimated GFR (Cockcroft-Gault) 57.7 Glucose Level 85 mg/dL (70-99) Calcium Level 9.0 mg/dL (8.5-10.1) Brief Hospital Course Patient is a 89-year-old male with past medical history CVA, TIA, hypothyroidism, atrial flutter, HTN, HLD, anemia, GERD, multiple myeloma, who [facility] after being found down next to his toilet. Upon EMS arrival he was noted to be altered with blood pressure 55/30 mmHg and heart rate in the 30s. Upon arrival in the ED he was saturating 100% on room air. Chest x-ray showed bilateral interstitial opacities, concerning for chronic interstitial lung disease versus pulmonary edema. Pelvis x-ray showed no acute osseous process in the pelvis. CT head and cervical spine showed no acute intracranial abnormality and no definite acute process of the cervical spine. Labs on admission showed WBC 5.8, hemoglobin 9.6, hematocrit 30.4, creatinine 1.8, CBG 133, troponin 0.020, CK 1086, albumin 2.8. His rapid COVID- 19 was negative. He was placed on dobutamine infusion with improvement in heart rate and blood pressure. He was recently prescribed Keflex for UTI. Reportedly he is DNR. Admitted patient to ICU with cardiology consult for further medical management. 12/20: Transferred from ICU off dopamine GTT. Heart rate still in the low 50s. Little more alert today seen bedside eating. He is asking if Lara catheter can be discontinued. Nurse practitioner [facility] called to note he just had a Pseudomonas urine result positive. Starting patient on IV Levaquin. 12/21: Eating well. Pleasantly confused. Tolerated Levaquin well. Plan to hold amiodarone per cardiology. Okay to return to SNF on Levaquin for 10 days with follow-up labs. 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 QTc 460. Stop amio, hold Eliquis for falls covid neg Greater than 30 minutes spent on d/c to SNF Discharge Information Condition at Discharge: Improved Follow Up: Weeks (1) Disposition/Orders: D/C to Another Facility Scheduled Aspirin (Aspir 81) 81 Mg Tablet.dr, 81 MG PO DAILY, (Reported) Entered as Reported by: NAMRATA HERNANDEZ on 07/13/13 1205 Last Action: Reviewed on 12/18/20999 by KHRIS RIOJAS Carboxymethylcellulos/Glycerin (Refresh Optive Eye Drops) 15 Ml Drops, 1 DROP EACHEYE BID for dry eyes, #30 Ref 6 (Reported) Entered as Reported by: KHRIS RIOJAS on 12/18/20999 Last Action: New Order on 12/18/20999 by KHRIS RIOJAS Famotidine (Famotidine) 20 Mg Tablet, 20 MG PO BID for gerd, (Reported) Entered as Reported by: KHRIS RIOJAS on 12/18/20999 Last Action: New Order on 12/18/20999 by KHRIS RIOJAS Levofloxacin (Levofloxacin) 500 Mg Tablet, 500 MG PO DAILY06 for Pseudomonas UTI for 10 Days, #10 Prescribed by: ADAMA EARLY MD on 12/21/20 1120 Levothyroxine Sodium (Levothyroxine Sodium) 175 Mcg Tablet, 1 TAB PO DAILY for thyriod, (Reported) Entered as Reported by: LETTY JEAN on 12/17/20 2158 Last Action: Reviewed on 12/18/20999 by KHRIS RIOJAS Loratadine (Loratadine) 10 Mg Tablet, 1 TAB PO DAILY for allergies, #30 Ref 5 (Reported) Entered as Reported by: KHRIS RIOJAS on 12/18/20999 Last Action: New Order on 12/18/20999 by KHRIS RIOJAS Melatonin (Melatonin) 3 Mg Capsule, 3 MG PO QHS for insomnia, (Reported) Entered as Reported by: KHRIS RIOJAS on 12/18/20999 Last Action: New Order on 12/18/20999 by KHRIS RIOJAS Multivitamin With Minerals (Daily Vitamin Formula-Minerals) 1 Each Tablet, 1 TAB PO DAILY for supplement for 30 Days, #30 Ref 0 (Reported) Entered as Reported by: KHRIS RIOJAS on 12/18/20999 Last Action: New Order on 12/18/20999 by KHRIS RIOJAS Polyethylene Glycol 3350 (Miralax) 17 Gm Powd.pack, 1 PACKET PO DAILY for constipation for 2 Days, #2 Ref 0 (Reported) dissolve in water Entered as Reported by: KHRIS RIOJAS on 12/18/20999 Last Action: New Order on 12/18/20999 by KHRIS RIOJAS Sennosides (Senna Laxative) 8.6 Mg Tablet, 2 TAB PO QHS for constipation for 30 Days, #60 Ref 0 (Reported) Entered as Reported by: KHRIS RIOJAS on 12/18/20999 Last Action: New Order on 12/18/20999 by KHRIS RIOJAS Discontinued Medications Amiodarone Hcl (Amiodarone Hcl) 200 Mg Tablet, 1 TAB PO BID for heart, (Reported) Entered as Reported by: LETTY JEAN on 12/17/202157 Last Action: Reviewed on 12/18/20999 by KHRIS RIOJAS Amiodarone Hcl (Amiodarone Hcl) 400 Mg Tablet, 400 TAB PO DAILY for heart, (Reported) Entered as Reported by: LETTY JEAN on 12/17/202157 Last Action: Discontinued on 12/18/20999 by KHRIS RIOJAS Amlodipine Besylate (Amlodipine Besylate) 2.5 Mg Tablet, 1 TAB PO DAILY, #30 Ref 5 (Reported) Entered as Reported by: DAYNE JOY on 09/07/14 0728 Last Action: Discontinued on 12/18/20999 by KHRIS RIOJAS Apixaban (Eliquis) 5 Mg Tablet, 1 TAB PO BID for heart, (Reported) Entered as Reported by: LETTY JEAN on 12/17/202157 Last Action: Reviewed on 12/18/20999 by KHRIS RIOJAS Atorvastatin Calcium (Atorvastatin Calcium) 40 Mg Tablet, 1 TAB PO DAILY for lipids, (Reported) Entered as Reported by: LETTY JEAN on 12/17/202157 Last Action: Discontinued on 12/18/20999 by KHRIS RIOJAS Cephalexin (Keflex) 500 Mg Capsule, 1 CAP PO QID for bladder for 7 Days, (Reported) Entered as Reported by: LETTY JEAN on 12/17/202157 Last Action: Edited on 12/18/20999 by KHRIS RIOJAS Folic Acid (Folic Acid) 1 Mg Tablet, 1 TAB PO DAILY, #90 Ref 1 (Reported) Entered as Reported by: DAYNE JOY on 09/07/14727 Last Action: Discontinued on 12/18/20999 by KHRIS RIOJAS Hydrocodone Bit/Acetaminophen (Hydrocodone-Apap 5-325 ) 1 Each Tablet, 1 EACH PO PRN Q4HRS PRN for PAIN, (Reported) Entered as Reported by: NAMRATA HERNANDEZ on 07/13/13 1207 Last Action: Discontinued on 12/18/20 1000 by KHRIS RIOJAS Hydroxyzine Hcl (Hydroxyzine Hcl) 25 Mg Tablet, 1 TAB PO DAILY for bp, (Reported) Entered as Reported by: LETTY JEAN on 12/17/202157 Last Action: Discontinued on 12/18/20999 by KHRIS RIOJAS Levothyroxine Sodium (Levothyroxine Sodium) 150 Mcg Tablet, 1 TAB PO DAILY, #30 Ref 5 (Reported) Entered as Reported by: DAYNE JOY on 09/07/14724 Last Action: Discontinued on 12/18/20999 by KHRIS RIOJAS Metoprolol Tartrate (Metoprolol Tartrate) 25 Mg Tablet, 1 TAB PO DAILY for bp, (Reported) Entered as Reported by: LETTY JEAN on 12/17/202157 Last Action: Discontinued on 12/18/20999 by KHRIS RIOJAS Omeprazole (Omeprazole) 40 Mg Capsule.dr, 1 CAP PO DAILY, #30 Ref 3 (Reported) Entered as Reported by: DAYNE JOY on 09/07/14727 Last Action: Discontinued on 12/18/20999 by KHRIS RIOJAS Oxybutynin Chloride (Oxybutynin Chloride Er) 5 Mg Tab.er.24, 1 TAB PO DAILY for bladder, (Reported) Entered as Reported by: LETTY JEAN on 12/17/202157 Last Action: Reviewed on 12/18/20999 by KHRIS RIOJAS [Smz/Tmp] , for bladder, (Reported) Entered as Reported by: LETTY JEAN on 12/17/202157 Last Action: Discontinued on 12/18/20999 by KHRIS RIOJAS Justicifation of Admission Dx: Justifications for Admission: Justification of Admission Dx: Yes Chronic Renal Failure: Metabolic Abnormality ADAMA EARLY MD Dec 21, 2020 11:23
--- NOTE | 2020-12-21 14:20 | NUR ---
Discharge Note: [facility] Discharge instructions and discharge home medications reviewed with [facility] and a copy given. All questions have been answered and understanding verbalized. The following instructions and handouts were given: Bradycardia, Cardiogenic Shock Discontinued lines and drains: Peripheral IV intact. Patient discharged to [facility] with Self via [facility]
== END 2020-12-21 14:18 | DRG 682 ==
LOC: ER 13:42 → ED HOLD 16:40 → 1 WEST ICU 19:33 → 6 SOUTH 12-19 08:30
PROVIDERS: ADMIT Family Medicine; ATTEND Family Medicine
PROC: 02HV33Z Insertion of Infusion Device into Superior Vena Cava, Percutaneous Approach (ICD-10-PCS; principal; 2020-12-17)
DX: N17.0 Acute kidney failure with tubular necrosis (principal); G93.41 Metabolic encephalopathy; R57.0 Cardiogenic shock; R57.1 Hypovolemic shock; M62.82 Rhabdomyolysis; N39.0 Urinary tract infection, site not specified; C61 Malignant neoplasm of prostate; D32.9 Benign neoplasm of meninges, unspecified; D57.3 Sickle-cell trait; E03.9 Hypothyroidism, unspecified; E16.2 Hypoglycemia, unspecified; E78.00 Pure hypercholesterolemia, unspecified; E78.5 Hyperlipidemia, unspecified; E86.0 Dehydration; E86.1 Hypovolemia; G93.89 Other specified disorders of brain; I10 Essential (primary) hypertension; I48.0 Paroxysmal atrial fibrillation; J44.9 Chronic obstructive pulmonary disease, unspecified; M25.78 Osteophyte, vertebrae; Z20.822 Contact with and (suspected) exposure to COVID-19; Z66 Do not resuscitate; Z79.01 Long term (current) use of anticoagulants; Z79.82 Long term (current) use of aspirin; Z82.3 Family history of stroke; Z82.49 Family history of ischemic heart disease and other diseases of the circulatory system; Z85.46 Personal history of malignant neoplasm of prostate; Z86.73 Personal history of transient ischemic attack (TIA), and cerebral infarction without residual deficits; Z87.891 Personal history of nicotine dependence; M19.90 Unspecified osteoarthritis, unspecified site; B96.5 Pseudomonas (aeruginosa) (mallei) (pseudomallei) as the cause of diseases classified elsewhere
CPT/HCPCS: 36415; 36556; 70450; 71045; 72125; 72170; 80048; 80053; 81001; 82553; 82962; 83605; 83735; 83880; 84145; 84439; 84443; 84481; 84484; 85025; 87040; 87086; 87426; 93005; 93306; 96361; 96365; 96366; 96375; 96376; J0461; J0696; J1250; J1265; J1644; J1956; J7030; U0003; U0005; 99291-25; G0378

== ENCOUNTER 2021-04-05 15:02 | Inpatient (IN) | payer MEDICARE, OTHER ==
[~2021-04-05] VITALS: Ht 182.9 cm; Wt 97.7 kg
[~2021-04-05 15:02] MED LIST changes: +AMIO200T53 PO; +AMIO400T5 PO; +APIX5TAB PO; +ATOR40TA59 PO; +CARB15DR3 EACHEYE; +CEPH500C PO; +FAMO20TA5 PO; +HYDR25TA PO; +LEVO175T5 PO; +LEVO500T9 PO; +LORA10TA3 PO; +MELA3CAP2 PO; +METO25TA4 PO; +MULT-237 PO; +OXYB-36 PO; +POLY17PO29 PO; +SENN8.6T11 PO; +SMZ/TMP
--- NOTE | 2021-04-05 15:11 | PHYS DOC ---
Past Medical History Past Medical History: Anemia, GERD, High Cholesterol, Hypertension, Hypot hyroid, Renal Disease, TIA Additional Past Medical Histor: A-FLUTTER,MULTIPLE MYELOMA, cognitive communica tion deficit Past Surgical History: Other Additional Past Surgical Histo: PROSTATECTOMY Smoking Status: Unknown if ever smoked Alcohol Use: None Drug Use: None General Adult EDM: Chief Complaint: ALTERED MENTAL STATUS HPI: HPI: Patient is a 89 year old male with history of previous ischemic stroke with aphasia, communication deficit, right-sided weakness, hypothyroidism, multiple myeloma who presents with an episode of altered level of consciousness and hypotension. Was apparently witnessed to have a decreased level of consciousness at his facility and was unresponsive. Prompting EMS call. The facility blood pressures were 60s systolic. Patient is now more responsive with blood pressures in the 90s systolic. He is complaining of substernal chest pressure. Unable to tell me when it started. Review of Systems: Review of Systems: Constitutional: Denies fever or chills. [] Eyes: Denies change in visual acuity. [] HENT: Denies nasal congestion or sore throat. [] Respiratory: Denies cough or shortness of breath. [] Cardiovascular: Denies chest pain or edema. [] GI: Denies abdominal pain, nausea, vomiting, bloody stools or diarrhea. [] : Denies dysuria. [] Musculoskeletal: Denies back pain or joint pain. [] Integument: Denies rash. [] Neurologic: Denies headache, focal weakness or sensory changes. [] Endocrine: Denies polyuria or polydipsia. [] Lymphatic: Denies swollen glands. [] Psychiatric: Denies depression or anxiety. [] Heart Score: C/O Chest Pain: Yes HEART Score for Chest Pain: HEART Score for Chest Pain Response (Comments) Value History Moderately Suspicious 1 ECG Nonspecific Repolarizatio 1 Age > 65 2 Risk Factors 1 or 2 Risk Factors 1 Troponin < Normal Limit 0 Total 5 Risk Scores: Score 4 - 6: 20.3% MACE over next 6 weeks - Admit for Clinical Observation Allergies: Allergies: Allergies Coded Allergies Type Severity Reaction Last Updated Verified No Known Drug Allergies 07/13/13 No Physical Exam: PE: Constitutional: Somnolent, but arouses to voice. Answers simple questions. HENT: Normocephalic, atraumatic Eyes: PERRLA, EOMI Neck: Normal range of motion, no tenderness, supple, no stridor. [] Cardiovascular:Heart rate regular rhythm, no murmur [] Lungs & Thorax: Bilateral breath sounds clear to auscultation [] Abdomen: Bowel sounds normal, soft, no tenderness, no masses, no pulsatile masses. [] Extremities: Right lower extremity edematous compared to left Neurologic: Somnolent, arouses to voice. Oriented to person and hospital (not specific hospital). Not oriented to time. Face symmetric. Some mild dysarthria and pauses with speech, but can communicate. Sensation intact bilaterally. Mild upper and lower extremity weakness on the right 4/5 (chronic from previous stroke) Psychologic: Affect normal, judgement normal, mood normal. [] EKG: EKG: Sinus rhythm. Bradycardia. Rate 46. MN interval 112. T wave inversion in [address]VL[address] No acute [address] elevation or depression. [] Radiology/Procedures: Radiology/Procedures: [] Impression: [facility] [address] [place] [address] IMAGING REPORT Signed PATIENT: SARA PARNELL ACCOUNT: [id number] : 1930 LOCATION: ER AGE: 89 SEX: M EXAM STATUS: PRE ER ORD. PHYSICIAN: RAVI HAWK MD REASON: multiple myeloma, altered mental status, hx stroke PROCEDURE: CT HEAD WO CONTRAST PQRS Compliance Statement: One or more of the following individualized dose reduction techniques were utilized for this examination: 1. Automated exposure control 2. Adjustment of the mA and/or kV according to patient size 3. Use of iterative reconstruction technique CT head without contrast 04/05/2021 3:17 PM INDICATION: Multiple myeloma, altered mental status COMPARISON: CT head 12/17/2020 TECHNIQUE: Multiple axial CT images of the head were obtained from skull base through the vertex without intravenous contrast. FINDINGS: Head: Ventricles, sulci and basal cisterns are prominent compatible with moderate to advanced cerebral volume loss. Low-attenuation in the periventricular white matter is suggestive of chronic small vessel ischemic changes. Moderate territory remote ischemic changes identified involving the left middle frontal gyrus and left frontal operculum with involvement of the left insula. There is no hydrocephalus. Mason-white matter differentiation is normal. There is no acute intracranial hemorrhage. There is no mass, mass effect or midline shift. Posterior fossa is normal in appearance. There is an extra-axial calcification identified along the left frontal lobe (series 2, image 24) which is stable. Visualized portions of the orbits are normal. Paranasal sinuses are well aerated. Mastoid air cells are well aerated. Scalp and calvaria are normal. IMPRESSION: No acute intracranial hemorrhage. Moderate territory remote ischemic changes identified in the left middle cerebral artery territory. Low-attenuation in the periventricular white matter is suggestive of chronic small vessel ischemic changes. Moderate to advanced generalized cerebral volume loss. Extra-axial calcified lesion along the left frontal lobe could represent calcified meningioma. Electronically signed by: Doris Kasper MD (04/05/2021 3:42 PM) [id number] DICTATED and SIGNED BY: DORIS KASPER MD DATE: 04/05/21 [id number] [place] [address] IMAGING REPORT Signed PATIENT: SARA PARNELL ACCOUNT: [id number] : 1930 LOCATION: ER AGE: 89 SEX: M EXAM STATUS: PRE ER ORD. PHYSICIAN: RAVI HAWK MD REASON: hypotension, ams, ALSO CT PROCEDURE: CHEST AP ONLY EXAM: Chest, single view. HISTORY: Hypotension. COMPARISON: 12/17/2020 FINDINGS: A frontal view of the chest is obtained. There is chronic appearing diffuse increased interstitial opacity. There is no consolidation, pleural effusion or pneumothorax. There is a stable cardiac silhouette. There are not leads overlying the mediastinum. IMPRESSION: Chronic appearing interstitial changes. Electronically signed by: Sunita Sparks MD (04/05/2021 3:37 PM) [id number] DICTATED and SIGNED BY: SUNITA SPARKS MD DATE: 04/05/21 [id number] [facility] [address] [place] [address] IMAGING REPORT Signed PATIENT: SARA PARNELL ACCOUNT: [id number] : 1930 LOCATION: ER AGE: 89 SEX: M EXAM STATUS: REG ER ORD. PHYSICIAN: RAVI HAWK MD REASON: DIMER + , CHEST PAIN, HYPOTENSION PROCEDURE: CT ANGIOGRAPHY CHEST CTA OF THE CHEST WITH AND WITHOUT CONTRAST Clinical indications: Elevated d-dimer. Chest pain. Hypotension. Technique: Noncontrast axial localizer was performed. After IV infusion of 100 cc of Omnipaque 350, helical CT scanning of the chest was performed using the CTA pulmonary embolism protocol. Coronal and sagittal MIP reconstructions were generated. PQRS compliance Statement One or more of the following individualized dose reduction techniques were utilized for this study: 1. Automated exposure control 2. Adjustment of the mA and/or kV according to patient size 3. Use of iterative reconstruction technique Comparison: None available. Findings: No pulmonary embolism is evident. There is mild ectasia of the ascending aorta measuring up to 4.0 cm in greatest dimension. The heart size is at the upper limits of normal and no pericardial effusion is seen. No enlarged thoracic lymphadenopathy is seen. There is wall thickening of the esophagus which may be seen with reflux esophagitis. No pleural effusion or pneumothorax is seen. Bilateral subpleural interstitial lung disease is seen with honeycombing consistent with pulmonary fibrosis. 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 No lung consolidation with air bronchograms is seen. No pleural effusion or pneumothorax is seen. The proximal bronchial tree is patent. No lytic process is seen. No adrenal mass is evident. IMPRESSION: No pulmonary embolism. Wall thickening of the esophagus which may be seen with reflux esophagitis. Ectasia of the ascending aorta. Bilateral chronic pulmonary fibrosis. Multiple nodules of the upper pole of the left kidney are seen some of which demonstrate >40 Hounsfield unit measurements. This could be due to hyperdense cysts but a solid nodule cannot be excluded. This may be further evaluated with outpatient renal sonography.. Electronically signed by: Homar Thomas MD (04/05/2021 5:01 PM) [id number] DICTATED and SIGNED BY: HOMAR THOMAS MD DATE: 04/05/21 [id number] [facility] [address] [place] [address] IMAGING REPORT Signed PATIENT: SARA PARNELL ACCOUNT: [id number] : 1930 LOCATION: ER AGE: 89 SEX: M EXAM STATUS: REG ER ORD. PHYSICIAN: RAVI HAWK MD REASON: swelling, chest pain, hypotension PROCEDURE: VENOUS LOWER EXTREMITY RIGHT EXAM: Right lower extremity venous Doppler. HISTORY: Right lower extremity pain/swelling. COMPARISON: None. FINDINGS: Grayscale and Doppler analysis of the right lower extremity deep venous system was performed with graded compression and augmentation. The common femoral, greater saphenous, superficial femoral, popliteal and calf veins were assessed. There is no evidence of deep venous thrombosis. IMPRESSION: 1. No evidence of deep venous thrombosis. Electronically signed by: Ilene Kunz MD (04/05/2021 5:01 PM) [facility] DICTATED and SIGNED BY: RAVI KUNZ MD DATE: 04/05/21 [id number] 0 Course & Med Decision Making: Course & Med Decision Making Pertinent Labs and Imaging studies reviewed. (See chart for details) Patient 89-year-old male with history of hypothyroidism, stroke with aphasia/communication deficit, multiple myeloma who presents with an episode of altered mental status and hypotension prior to arrival. On arrival his mental status and blood pressure are improving, but are not back to baseline. Currently 90s/50s. He is more alert and conversational, but seems confused to his location which is different from his baseline. He has some mild right-sided weakness on examination, but this is reportedly chronic and unchanged. Doubt acute stroke. CT head negative for hemorrhage or other acute change. Consider infectious source for his hypotension, so blood cultures, CXR, urine cultures sent. Will be treated empirically with ceftriaxone and fluids. Considered myxedema coma given bradycardia, hypotension, hx hypothyroid. TSH is elevated but only ~8.4 making this less likely. He is complaining of chest pain, and given his hypotension have considered myocardial infarction as well as PE. Initial troponin is negative, serial troponins ordered to exclude myocardial infarction. EKG with T wave inversions in the high lateral leads, but no ST segment changes. Shows sinus bradycardia in the 40s. D-dimer positive. CTA pending for PE. Right lower extremity edematous > left with hx of decreased movement due to stroke. RLE US pending as well. Discussed with son that patient will require hospitalization which they are both ok with. DNR status confirmed with son and paperwork from facility. 1609 Ricarda Disclaimer: Ricarda Disclaimer: This electronic medical record was generated, in whole or in part, using a voice recognition dictation system. Departure Departure Impression: Primary Impression: Chest pain Additional Impressions: Hypotension Altered mental status Bradycardia Disposition: ADMITTED INPATIENT Condition: IMPROVED Referrals: CHRIS MAR MD (PCP) RAVI HAWK MD Apr 05, 2021 15:11
[2021-04-05 15:27] LABS: BASO # 0.1 x10^3/uL (0.0-0.2); BASO % 2 % (0-3); EOS # 0.4 x10^3/uL (0.0-0.7); EOS % 5 % (0-3); HEMATOCRIT 30.5 % (39.0-53.0); HEMOGLOBIN 9.6 g/dL (13.0-17.5); LYMPH # 2.7 x10^3/uL (1.0-4.8); LYMPH % 39 % (24-48); MEAN CORPUSCULAR HEMOGLOBIN 21 pg (25-35); MEAN CORPUSCULAR HGB CONC 32 g/dL (31-37); MEAN CORPUSCULAR VOLUME 68 fL (79-100); MONO # 0.5 x10^3/uL (0.0-1.1); MONO % 7 % (0-9); NEUT # 3.3 x10^3/uL (1.8-7.7); NEUT % 48 % (31-73); PLATELET COUNT 211 x10^3/uL (140-400); RED BLOOD COUNT 4.48 x10^6/uL (4.30-5.70); RED CELL DISTRIBUTION WIDTH 19.2 % (11.5-14.5)
[2021-04-05 15:37] LABS: CALCIUM 8.6 mg/dL (8.5-10.1); CREATININE 1.5 mg/dL (0.7-1.3); GFR 53.3; POTASSIUM 4.6 mmol/L (3.5-5.1)
--- NOTE | 2021-04-05 15:40 | RAD ---
EXAM: Chest, single view. HISTORY: Hypotension. COMPARISON: 12/17/2020 FINDINGS: A frontal view of the chest is obtained. There is chronic appearing diffuse increased inter stitial opacity. There is no consolidation, pleural effusion or pneumothorax. There is a stable cardi ac silhouette. There are not leads overlying the mediastinum. IMPRESSION: Chronic appearing interstitial changes. Electronically signed by: Sunita Baez MD (04/05/2021 3:37 PM) [id number]
[2021-04-05 15:43] LABS: ALBUMIN/GLOBULIN RATIO 0.7 (1.0-1.7); TOTAL BILIRUBIN 0.4 mg/dL (0.2-1.0); TOTAL PROTEIN 7.6 g/dL (6.4-8.2)
--- NOTE | 2021-04-05 15:45 | RAD ---
PQRS Compliance Statement: One or more of the following individualized dose reduction techniques were utilized for this examinat ion: 1. Automated exposure control 2. Adjustment of the mA and/or kV according to patient size 3. Use of iterative reconstruction technique CT head without contrast 04/05/2021 3:17 PM INDICATION: Multiple myeloma, altered mental status COMPARISON: CT head 12/17/2020 TECHNIQUE: Multiple axial CT images of the head were obtained from skull base through the vertex with out intravenous contrast. FINDINGS: Head: Ventricles, sulci and basal cisterns are prominent compatible with moderate to advanced cerebral volu me loss. Low-attenuation in the periventricular white matter is suggestive of chronic small vessel is chemic changes. Moderate territory remote ischemic changes identified involving the left middle front al gyrus and left frontal operculum with involvement of the left insula. There is no hydrocephalus. G ray-white matter differentiation is normal. There is no acute intracranial hemorrhage. There is no ma ss, mass effect or midline shift. Posterior fossa is normal in appearance. There is an extra-axial ca lcification identified along the left frontal lobe (series 2, image 24) which is stable. Visualized portions of the orbits are normal. Paranasal sinuses are well aerated. Mastoid air cells a re well aerated. Scalp and calvaria are normal. IMPRESSION: No acute intracranial hemorrhage. Moderate territory remote ischemic changes identified in the left middle cerebral artery territory. Low-attenuation in the periventricular white matter is suggestive of chronic small vessel ischemic ch anges. Moderate to advanced generalized cerebral volume loss. Extra-axial calcified lesion along the left frontal lobe could represent calcified meningioma. Electronically signed by: Denise Luna MD (04/05/2021 3:42 PM) [id number]
[2021-04-05 16:05] LABS: PLT ESTIMATE ADEQUATE (ADEQUATE)
[2021-04-05 16:06] LABS: HYPOCHROMIA MOD
[2021-04-05 16:07] LABS: MICROCYTOSIS MARKED; POLYCHROMASIA SLIGHT
[2021-04-05 16:08] LABS: TARGET CELLS FEW
[2021-04-05] MEDS ORDERED: HYDROCORTISONE SOD SUCC/PF 100 MG/2 ML VIAL. IVP ONE (16:15)
[2021-04-05] MEDS ORDERED: IV RINGERS,LACTATED 1000ML 1,000 ML IV ONE (16:15)
[2021-04-05] MEDS ORDERED: cefTRIAXone IV Push 1 GM VIAL. IVP ONE (16:15)
[2021-04-05] MEDS ORDERED: CONTRAST GIVEN. MC PRN (16:45)
[2021-04-05] MEDS ORDERED: IOHEXOL 350 MG/ML 100 ML VIAL. IV ONE (16:45)
--- NOTE | 2021-04-05 17:03 | RAD ---
CTA OF THE CHEST WITH AND WITHOUT CONTRAST Clinical indications: Elevated d-dimer. Chest pain. Hypotension. Technique: Noncontrast axial localizer was performed. After IV infusion of 100 cc of Omnipaque 350, h elical CT scanning of the chest was performed using the CTA pulmonary embolism protocol. Coronal and sagittal MIP reconstructions were generated. PQRS compliance Statement One or more of the following individualized dose reduction techniques were utilized for this study: 1. Automated exposure control 2. Adjustment of the mA and/or kV according to patient size 3. Use of iterative reconstruction technique Comparison: None available. Findings: No pulmonary embolism is evident. There is mild ectasia of the ascending aorta measuring up to 4.0 cm in greatest dimension. The heart size is at the upper limits of normal and no pericardial effusion is seen. No enlarged thoracic lymphadenopathy is seen. There is wall thickening of the esoph miguelina which may be seen with reflux esophagitis. No pleural effusion or pneumothorax is seen. Bilatera l subpleural interstitial lung disease is seen with honeycombing consistent with pulmonary fibrosis. 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 No lung co nsolidation with air bronchograms is seen. No pleural effusion or pneumothorax is seen. The proximal bronchial tree is patent. No lytic process is seen. No adrenal mass is evident. IMPRESSION: No pulmonary embolism. Wall thickening of the esophagus which may be seen with reflux esophagitis. Ectasia of the ascending aorta. Bilateral chronic pulmonary fibrosis. Multiple nodules of the upper pole of the left kidney are seen some of which demonstrate >40 Hounsfie ld unit measurements. This could be due to hyperdense cysts but a solid nodule cannot be excluded. Th is may be further evaluated with outpatient renal sonography.. Electronically signed by: Justice Thomas MD (04/05/2021 5:01 PM) [id number]
--- NOTE | 2021-04-05 17:04 | RAD ---
EXAM: Right lower extremity venous Doppler. HISTORY: Right lower extremity pain/swelling. COMPARISON: None. FINDINGS: Grayscale and Doppler analysis of the right lower extremity deep venous system was performe d with graded compression and augmentation. The common femoral, greater saphenous, superficial femora l, popliteal and calf veins were assessed. There is no evidence of deep venous thrombosis. IMPRESSION: 1. No evidence of deep venous thrombosis. Electronically signed by: Ilene Kunz MD (04/05/2021 5:01 PM) [facility]
[2021-04-05 17:17] LABS: BILIRUBIN,URINE NEGATIVE (NEG); CLARITY,URINE CLEAR; COLOR,URINE YELLOW; NITRITE,URINE NEGATIVE (NEG); PROTEIN,URINE NEGATIVE (NEG-TRACE)
[2021-04-05 17:38] LABS: HYALINE CASTS, URINE OCCASIONAL /HPF
[2021-04-05 17:40] LABS: BACTERIA,URINE 0 /HPF (0-FEW)
--- NOTE | 2021-04-05 18:06 | EKG ---
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
--- NOTE | 2021-04-05 18:25 | PDOC1 ---
History and Physical Date of Service: DOS: DATE: 04/05/21 TIME: 18:25 Allergies: Allergies: Coded Allergies: No Known Drug Allergies (Unverified , 07/13/13) Current Medications: Current Medications Current Medications Ceftriaxone Sodium (Rocephin) 1 gm 1X ONCE IVP Last administered on 04/05/21at 17:03; Start 04/05/21 at 16:15; Stop 04/05/21 at 16:16; Status DC Hydrocortisone Sodium Succinate (Solu-CORTEF) 100 mg 1X ONCE IVP ; Start 04/05/21 at 16:15; Stop 04/05/21 at 16:33; Status DC Levothyroxine Sodium 100 mcg/ Sodium Chloride 5 ml @ 100 mls/hr DAILY IVP ; Start 04/06/21 at 09:00; Status UNV Ringer's Solution 1,000 ml @ 1,000 mls/hr 1X ONCE IV Last administered on 04/05/21at 17:03; Start 04/05/21 at 16:15; Stop 04/05/21 at 17:14; Status DC Iohexol (Omnipaque 350 Mg/ml) 90 ml 1X ONCE IV Last administered on 04/05/21at 16:44; Start 04/05/21 at 16:45; Stop 04/05/21 at 16:46; Status DC Info (CONTRAST GIVEN -- Rx MONITORING) 1 each PRN DAILY PRN MC SEE COMMENTS; Start 04/05/21 at 16:45; Stop 04/07/21 at 16:44 Active Scripts Active Levofloxacin 500 Mg Tablet 500 Mg PO DAILY06 10 Days Reported Senna Laxative (Sennosides) 8.6 Mg Tablet 2 Tab PO QHS 30 Days Refresh Optive Eye Drops (Carboxymethylcellulos/Glycerin) 15 Ml Drops 1 Drop EACHEYE BID Miralax (Polyethylene Glycol 3350) 17 Gm Powd.pack 1 Packet PO DAILY 2 Days dissolve in water Melatonin 3 Mg Capsule 3 Mg PO QHS Famotidine 20 Mg Tablet 20 Mg PO BID Loratadine 10 Mg Tablet 1 Tab PO DAILY Daily Vitamin Formula-Minerals (Multivitamin With Minerals) 1 Each Tablet 1 Tab PO DAILY 30 Days Levothyroxine Sodium 175 Mcg Tablet 1 Tab PO DAILY Aspir 81 (Aspirin) 81 Mg Tablet.dr 81 Mg PO DAILY ROS: Review of Systems Review of System REVIEW OF SYSTEMS: GENERAL: Denies weakness SKIN: No bruising, hair changes or rashes. EYES: No blurred, double or loss of vision. NOSE AND THROAT: No history of nosebleeds, hoarseness or sore throat. HEART: No history of palpitations, chest pain or shortness of breath on exertion. LUNGS: Denies cough, hemoptysis, wheezing or shortness of breath. GASTROINTESTINAL: Denies changes in appetite, nausea, vomiting, diarrhea or constipation. GENITOURINARY: No history of frequency, urgency, hesitancy or nocturia. NEUROLOGIC: Denies history of numbness, tingling, or tremor. PSYCHIATRIC: No history of panic, anxiety or depression. ENDOCRINE: No history of heat or cold intolerance, polyuria or polydipsia. EXTREMITIES: Denies joint pain, pain on walking or stiffness. Physical Exam: Vital Signs: Vital Signs Date Time Temp Pulse Resp B/P (MAP) Pulse Ox O2 Delivery O2 Flow Rate FiO2 04/05/21 18:01 48 16 134/72 (92) 99 Room Air 04/05/21 15:02 97.9 97.9 Physcial Exam: GEN: No apparent distress. Alert and oriented HEENT: Normal cephalic, atraumatic, external auditory canals are patent EYES: Extraocular muscles are intact, pupil are equally round and reactive to light and accommodation MUSCULOSKELETAL: Well developed , well nourished, good range of motion ENDOCRINE: No thyromegaly was palpated LYMPHATICS: No cervical chain or axillary nodes were noted HEMATOPOIETIC: No bruising NECK: Supple, no JVD, no thyromegaly was noted LUNGS: Clear to auscultation in all lung contreras without rhonchi or wheezing HEART: RRR, S!, S2 present. Peripheral pulses intact, no obvious murmurs noted ABDOMEN: Soft, nontender. Positive bowel sounds, no organomegaly, normal bowel sounds EXTREMITIES: Without clubbing, cyanosis, or edema. Pedal pulses intact. Negative Homans sign NEUROLOGIC: Normal speech and tone. A&O x 3, moves all extremities, no obvious focal deficits PSYCHIATRIC: Normal affect, normal mood. Stable SKIN: No ulcerations or rashes, good skin turgor, no jaundice VASCULAR: Good capillary refill, neurovascular bundle appears to be intact Labs: Labs: Laboratory Tests Test 04/05/21 15:20 04/05/21 16:55 04/05/21 17:10 White Blood Count 7.0 x10^3/uL (4.0-11.0) Red Blood Count 4.48 x10^6/uL (4.30-5.70) Hemoglobin 9.6 g/dL (13.0-17.5) Hematocrit 30.5 % (39.0-53.0) Mean Corpuscular Volume 68 fL (79-100) Mean Corpuscular Hemoglobin 21 pg (25-35) Mean Corpuscular Hemoglobin Concent 32 g/dL (31-37) Red Cell Distribution Width 19.2 % (11.5-14.5) Platelet Count 211 x10^3/uL (140-400) Neutrophils (%) (Auto) 48 % (31-73) Lymphocytes (%) (Auto) 39 % (24-48) Monocytes (%) (Auto) 7 % (0-9) Eosinophils (%) (Auto) 5 % (0-3) Basophils (%) (Auto) 2 % (0-3) Neutrophils # (Auto) 3.3 x10^3/uL (1.8-7.7) Lymphocytes # (Auto) 2.7 x10^3/uL (1.0-4.8) Monocytes # (Auto) 0.5 x10^3/uL (0.0-1.1) Eosinophils # (Auto) 0.4 x10^3/uL (0.0-0.7) Basophils # (Auto) 0.1 x10^3/uL (0.0-0.2) Platelet Estimate Adequate (ADEQUATE) Large Platelets Mod Polychromasia Slight Hypochromasia Mod Microcytosis Marked Target Cells Few D-Dimer (Avani) 1.42 ug/mlFEU (0.00-0.50) Sodium Level 143 mmol/L (136-145) Potassium Level 4.6 mmol/L (3.5-5.1) Chloride Level 108 mmol/L (98-107) Carbon Dioxide Level 25 mmol/L (21-32) Anion Gap 10 (6-14) Blood Urea Nitrogen 28 mg/dL (8-26) Creatinine 1.5 mg/dL (0.7-1.3) Estimated GFR (Cockcroft-Gault) 53.3 BUN/Creatinine Ratio 19 (6-20) Glucose Level 103 mg/dL (70-99) Lactic Acid Level 1.7 mmol/L (0.4-2.0) Calcium Level 8.6 mg/dL (8.5-10.1) Total Bilirubin 0.4 mg/dL (0.2-1.0) Aspartate Amino Transf (AST/SGOT) 16 U/L (15-37) Alanine Aminotransferase (ALT/SGPT) 26 U/L (16-63) Alkaline Phosphatase 98 U/L (46-116) Troponin I High Sensitivity 20 ng/L (4-75) Total Protein 7.6 g/dL (6.4-8.2) Albumin 3.0 g/dL (3.4-5.0) Albumin/Globulin Ratio 0.7 (1.0-1.7) Thyroid Stimulating Hormone (TSH) 8.390 uIU/mL (0.358-3.74) Urine Color Yellow Urine Clarity Clear Urine pH 7.0 (<5.0-8.0) Urine Specific Mobile 1.020 (1.000-1.030) Urine Protein Negative mg/dL (NEG-TRACE) Urine Glucose (UA) Negative mg/dL (NEG) Urine Ketones (Stick) Negative mg/dL (NEG) Urine Blood Negative (NEG) Urine Nitrite Negative (NEG) Urine Bilirubin Negative (NEG) Urine Urobilinogen Dipstick 1.0 mg/dL (0.2 mg/dL) Urine Leukocyte Esterase Negative (NEG) Urine RBC 1-2 /HPF (0-2) Urine WBC 1-4 /HPF (0-4) Urine Squamous Epithelial Cells Many /LPF Urine Transitional Epithelial Cells Occ /LPF Urine Renal Epithelial Cells Occ /LPF Urine Bacteria 0 /HPF (0-FEW) Urine Hyaline Casts Occasional /HPF Urine Mucus Slight /LPF SARS-CoV-2 Antigen (Rapid) Negative (NEGATIVE) Laboratory Tests Test 04/05/21 15:20 04/05/21 16:55 04/05/21 17:10 White Blood Count 7.0 x10^3/uL (4.0-11.0) Red Blood Count 4.48 x10^6/uL (4.30-5.70) Hemoglobin 9.6 g/dL (13.0-17.5) Hematocrit 30.5 % (39.0-53.0) Mean Corpuscular Volume 68 fL (79-100) Mean Corpuscular Hemoglobin 21 pg (25-35) Mean Corpuscular Hemoglobin Concent 32 g/dL (31-37) Red Cell Distribution Width 19.2 % (11.5-14.5) Platelet Count 211 x10^3/uL (140-400) Neutrophils (%) (Auto) 48 % (31-73) Lymphocytes (%) (Auto) 39 % (24-48) Monocytes (%) (Auto) 7 % (0-9) Eosinophils (%) (Auto) 5 % (0-3) Basophils (%) (Auto) 2 % (0-3) Neutrophils # (Auto) 3.3 x10^3/uL (1.8-7.7) Lymphocytes # (Auto) 2.7 x10^3/uL (1.0-4.8) Monocytes # (Auto) 0.5 x10^3/uL (0.0-1.1) Eosinophils # (Auto) 0.4 x10^3/uL (0.0-0.7) Basophils # (Auto) 0.1 x10^3/uL (0.0-0.2) Platelet Estimate Adequate (ADEQUATE) Large Platelets Mod Polychromasia Slight Hypochromasia Mod Microcytosis Marked Target Cells Few D-Dimer (Avani) 1.42 ug/mlFEU (0.00-0.50) Sodium Level 143 mmol/L (136-145) Potassium Level 4.6 mmol/L (3.5-5.1) Chloride Level 108 mmol/L (98-107) Carbon Dioxide Level 25 mmol/L (21-32) Anion Gap 10 (6-14) Blood Urea Nitrogen 28 mg/dL (8-26) Creatinine 1.5 mg/dL (0.7-1.3) Estimated GFR (Cockcroft-Gault) 53.3 BUN/Creatinine Ratio 19 (6-20) Glucose Level 103 mg/dL (70-99) Lactic Acid Level 1.7 mmol/L (0.4-2.0) Calcium Level 8.6 mg/dL (8.5-10.1) Total Bilirubin 0.4 mg/dL (0.2-1.0) Aspartate Amino Transf (AST/SGOT) 16 U/L (15-37) Alanine Aminotransferase (ALT/SGPT) 26 U/L (16-63) Alkaline Phosphatase 98 U/L (46-116) Troponin I High Sensitivity 20 ng/L (4-75) Total Protein 7.6 g/dL (6.4-8.2) Albumin 3.0 g/dL (3.4-5.0) Albumin/Globulin Ratio 0.7 (1.0-1.7) Thyroid Stimulating Hormone (TSH) 8.390 uIU/mL (0.358-3.74) Urine Color Yellow Urine Clarity Clear Urine pH 7.0 (<5.0-8.0) Urine Specific Mobile 1.020 (1.000-1.030) Urine Protein Negative mg/dL (NEG-TRACE) Urine Glucose (UA) Negative mg/dL (NEG) Urine Ketones (Stick) Negative mg/dL (NEG) Urine Blood Negative (NEG) Urine Nitrite Negative (NEG) Urine Bilirubin Negative (NEG) Urine Urobilinogen Dipstick 1.0 mg/dL (0.2 mg/dL) Urine Leukocyte Esterase Negative (NEG) Urine RBC 1-2 /HPF (0-2) Urine WBC 1-4 /HPF (0-4) Urine Squamous Epithelial Cells Many /LPF Urine Transitional Epithelial Cells Occ /LPF Urine Renal Epithelial Cells Occ /LPF Urine Bacteria 0 /HPF (0-FEW) Urine Hyaline Casts Occasional /HPF Urine Mucus Slight /LPF SARS-CoV-2 Antigen (Rapid) Negative (NEGATIVE) Justifications for Admission Other Justification ADAMA RASMUSSEN MD Apr 05, 2021 18:25
[2021-04-05 18:26] VITALS: BP 111/61
[2021-04-05] MEDS ORDERED: ACETAMINOPHEN 325 MG TABLET. PO PRN (18:45)
[2021-04-05] MEDS ORDERED: ELECTROLYTE (NON-ICU) PROTOCOL. MC PRN (18:45)
[2021-04-05] MEDS ORDERED: ONDANSETRON PF 4 MG/2 ML VIAL. IVP PRN (18:45)
[2021-04-05] MEDS ORDERED: CALCIUM CARBONATE 500 MG TAB.CHEW PO PRN (18:45)
[2021-04-05 19:57] VITALS: BP 120/78
[2021-04-05] MEDS: SENNOSIDES/DOCUSATE 8.6/50MG TABLET. PO SCH (21:00)
[2021-04-05] MEDS: FAMOTIDINE 20 MG TABLET. PO SCH (21:00)
[2021-04-05] MEDS: HEPARIN for SUB-Q USE 5,000 UNIT/ML VIAL. SQ SCH (21:00)
[2021-04-05 22:35] VITALS: BP 128/64
[2021-04-06 03:30] VITALS: BP 117/60
[2021-04-06] MEDS ORDERED: ACET325T21 PO (04:35)
[2021-04-06] MEDS ORDERED: DOCU100C28 PO (04:35)
[2021-04-06] MEDS ORDERED: MAGN24003 PO (04:35)
[2021-04-06 07:00] VITALS: BP 116/63
[2021-04-06] MEDS: SENNOSIDES/DOCUSATE 8.6/50MG TABLET. PO SCH ×2 (08:54→22:02)
[2021-04-06] MEDS: ASPIRIN ENTERIC COATED 81 MG TABLET.DR. PO SCH (08:54)
[2021-04-06] MEDS: FAMOTIDINE 20 MG TABLET. PO SCH ×2 (08:54→22:02)
[2021-04-06] MEDS: CETIRIZINE HCL 10 MG TABLET. PO SCH (08:54)
[2021-04-06] MEDS: POLYETHYLENE GLYCOL 3350 17 GM PACKET. PO SCH (08:54)
[2021-04-06] MEDS ORDERED: LEVOTHYROXINE SODIUM INJ 100 MCG in NORMAL SALINE 5 ML IVP SCH (09:00)
[2021-04-06] MEDS ORDERED: LEVOTHYROXINE 175 MCG TABLET PO SCH (09:00)
[2021-04-06] MEDS: HEPARIN for SUB-Q USE 5,000 UNIT/ML VIAL. SQ SCH ×2 (09:01→22:06)
[2021-04-06 11:00] VITALS: BP 113/56
[2021-04-06] MEDS: cefTRIAXone IV Push 1 GM VIAL. IVP SCH (13:00)
--- NOTE | 2021-04-06 14:23 | PDOC ---
[employer] PROGRESS NOTE Date of Service DOS: DATE: 04/06/21 TIME: 14:21 Chief Complaint Chief Complaint lethargy and confusion, better hypotensino, resolved hypothyroidism, level high, will go up on synthroid Hx stroke dementia w/ some baseline aphasia multiple myeloma History of Present Illness History of Present Illness much imrpoved, talkative and eating, I talked to his sonMayco by phone, Patient may have visitors, will do Pt and OT try to DC on skilled, has been in [facility] > 3 yrs Vitals/I&O Vitals/I&O: Vital Signs Date Time Temp Pulse Resp B/P (MAP) Pulse Ox O2 Delivery O2 Flow Rate FiO2 04/06/21 07:00 98.3 55 18 116/63 (80) 95 Room Air 98.3 Physical Exam General: Alert, Cooperative, No acute distress, Other (not orienetd, but does recall breakfast, ) Heart: Regular rate Lungs: Wheezing Abdomen: Normal bowel sounds Extremities: No clubbing, Other (1+ edema ) Skin: No breakdown, No significant lesion Labs Labs: Laboratory Tests Test 04/05/21 15:20 04/05/21 16:55 04/05/21 17:10 04/06/21 04:30 White Blood Count 7.0 x10^3/uL (4.0-11.0) Red Blood Count 4.48 x10^6/uL (4.30-5.70) Hemoglobin 9.6 g/dL (13.0-17.5) Hematocrit 30.5 % (39.0-53.0) Mean Corpuscular Volume 68 fL (79-100) Mean Corpuscular Hemoglobin 21 pg (25-35) Mean Corpuscular Hemoglobin Concent 32 g/dL (31-37) Red Cell Distribution Width 19.2 % (11.5-14.5) Platelet Count 211 x10^3/uL (140-400) Neutrophils (%) (Auto) 48 % (31-73) Lymphocytes (%) (Auto) 39 % (24-48) Monocytes (%) (Auto) 7 % (0-9) Eosinophils (%) (Auto) 5 % (0-3) Basophils (%) (Auto) 2 % (0-3) Neutrophils # (Auto) 3.3 x10^3/uL (1.8-7.7) Lymphocytes # (Auto) 2.7 x10^3/uL (1.0-4.8) Monocytes # (Auto) 0.5 x10^3/uL (0.0-1.1) Eosinophils # (Auto) 0.4 x10^3/uL (0.0-0.7) Basophils # (Auto) 0.1 x10^3/uL (0.0-0.2) Platelet Estimate Adequate (ADEQUATE) Large Platelets Mod Polychromasia Slight Hypochromasia Mod Microcytosis Marked Target Cells Few D-Dimer (Avani) 1.42 ug/mlFEU (0.00-0.50) Sodium Level 143 mmol/L (136-145) Potassium Level 4.6 mmol/L (3.5-5.1) Chloride Level 108 mmol/L (98-107) Carbon Dioxide Level 25 mmol/L (21-32) Anion Gap 10 (6-14) Blood Urea Nitrogen 28 mg/dL (8-26) Creatinine 1.5 mg/dL (0.7-1.3) Estimated GFR (Cockcroft-Gault) 53.3 BUN/Creatinine Ratio 19 (6-20) Glucose Level 103 mg/dL (70-99) Lactic Acid Level 1.7 mmol/L (0.4-2.0) Calcium Level 8.6 mg/dL (8.5-10.1) Total Bilirubin 0.4 mg/dL (0.2-1.0) Aspartate Amino Transf (AST/SGOT) 16 U/L (15-37) Alanine Aminotransferase (ALT/SGPT) 26 U/L (16-63) Alkaline Phosphatase 98 U/L (46-116) Troponin I High Sensitivity 20 ng/L (4-75) 33 ng/L (4-75) Total Protein 7.6 g/dL (6.4-8.2) Albumin 3.0 g/dL (3.4-5.0) Albumin/Globulin Ratio 0.7 (1.0-1.7) Thyroid Stimulating Hormone (TSH) 8.390 uIU/mL (0.358-3.74) Urine Color Yellow Urine Clarity Clear Urine pH 7.0 (<5.0-8.0) Urine Specific Allen 1.020 (1.000-1.030) Urine Protein Negative mg/dL (NEG-TRACE) Urine Glucose (UA) Negative mg/dL (NEG) Urine Ketones (Stick) Negative mg/dL (NEG) Urine Blood Negative (NEG) Urine Nitrite Negative (NEG) Urine Bilirubin Negative (NEG) Urine Urobilinogen Dipstick 1.0 mg/dL (0.2 mg/dL) Urine Leukocyte Esterase Negative (NEG) Urine RBC 1-2 /HPF (0-2) Urine WBC 1-4 /HPF (0-4) Urine Squamous Epithelial Cells Many /LPF Urine Transitional Epithelial Cells Occ /LPF Urine Renal Epithelial Cells Occ /LPF Urine Bacteria 0 /HPF (0-FEW) Urine Hyaline Casts Occasional /HPF Urine Mucus Slight /LPF SARS-CoV-2 RNA (NINO) Negative (Negative) SARS-CoV-2 Antigen (Rapid) Negative (NEGATIVE) Assessment and Plan Assessmemt and Plan Problems Medical Problems: (1) Altered mental status Status: Acute (2) Bradycardia Status: Acute (3) Chest pain Status: Acute (4) Hypotension Status: Acute Comment Review of Relevant I have reviewed the following items christos (where applicable) has been applied. Medications: Current Medications Medications (Trade) Dose Ordered Sig/Benny Route PRN Reason Start Time Stop Time Status Last Admin Dose Admin Ceftriaxone Sodium (Rocephin) 1 gm 1X ONCE IVP 04/05/21 16:15 04/05/21 16:16 DC 04/05/21 17:03 Ringer's Solution 1,000 ml @ 1,000 mls/hr 1X ONCE IV 04/05/21 16:15 04/05/21 17:14 DC 04/05/21 17:03 Iohexol (Omnipaque 350 Mg/ml) 90 ml 1X ONCE IV 04/05/21 16:45 04/05/21 16:46 DC 04/05/21 16:44 Aspirin (Ecotrin) 81 mg DAILY PO 04/06/21 09:00 04/06/21 08:54 Famotidine (Pepcid) 20 mg BID PO 04/05/21 21:00 04/06/21 08:54 Levothyroxine Sodium (Synthroid) 175 mcg DAILY PO 04/06/21 09:00 04/06/21 08:54 Polyethylene Glycol (miraLAX PACKET) 17 gm DAILY PO 04/06/21 09:00 04/06/21 08:54 Cetirizine HCl (ZyrTEC) 10 mg DAILY PO 04/06/21 09:00 04/06/21 08:54 Senna/Docusate Sodium (Senna Plus) 1 tab BID PO 04/05/21 21:00 04/06/21 08:54 Heparin Sodium (Porcine) (Heparin Sodium) 5,000 unit Q12HR SQ 04/05/21 21:00 04/06/21 09:01 Ceftriaxone Sodium (Rocephin) 1 gm Q24H IVP 04/06/21 13:00 04/06/21 13:00 Justifications for Admission Other Justification NUBIA NOBLES MD Apr 06, 2021 14:23
[2021-04-06 15:00] VITALS: BP 120/62
[2021-04-06 19:40] VITALS: BP 140/77
[2021-04-06 23:45] VITALS: BP 128/67
[2021-04-07 03:40] VITALS: BP 120/61
[2021-04-07] MEDS: LEVOTHYROXINE 175 MCG TABLET PO SCH (06:15)
[2021-04-07 07:00] VITALS: BP 130/76
[2021-04-07] MEDS: ASPIRIN ENTERIC COATED 81 MG TABLET.DR. PO SCH (08:55)
[2021-04-07] MEDS: SENNOSIDES/DOCUSATE 8.6/50MG TABLET. PO SCH ×2 (08:55→21:18)
[2021-04-07] MEDS: FAMOTIDINE 20 MG TABLET. PO SCH ×2 (08:55→21:18)
[2021-04-07] MEDS: CETIRIZINE HCL 10 MG TABLET. PO SCH (08:55)
[2021-04-07] MEDS: POLYETHYLENE GLYCOL 3350 17 GM PACKET. PO SCH (08:55)
[2021-04-07] MEDS: HEPARIN for SUB-Q USE 5,000 UNIT/ML VIAL. SQ SCH ×2 (09:05→21:20)
[2021-04-07 11:00] VITALS: BP 127/63
[2021-04-07] MEDS: cefTRIAXone IV Push 1 GM VIAL. IVP SCH (13:04)
--- NOTE | 2021-04-07 14:22 | PDOC ---
[employer] PROGRESS NOTE Date of Service DOS: DATE: 04/07/21 TIME: 14:20 Chief Complaint Chief Complaint lethargy and confusion, better hypotensino, resolved hypothyroidism, level high, will go up on synthroid Hx stroke dementia w/ some baseline aphasia multiple myeloma did well with PT today, up with assist, tried to walk with a walker, the report had been that he was wheelchair bound, but there may be some room for improvement History of Present Illness History of Present Illness cont PT and OT, can DC back on skilled to [facility] on 04/08 he has lived there about 4 yrs much imrpoved, talkative and eating, on 04/06, I talked to his son, Mayco by phone, Vitals/I&O Vitals/I&O: Vital Signs Date Time Temp Pulse Resp B/P (MAP) Pulse Ox O2 Delivery O2 Flow Rate FiO2 04/07/21 11:00 97.7 47 18 127/63 (84) 97 Room Air 97.7 I & O 04/06/21 04/06/21 04/07/21 15:00 23:00 07:00 Intake Total 60 ml 60 ml Balance 60 ml 60 ml Physical Exam General: Alert, Cooperative, No acute distress, Other (not orienetd, but does recall breakfast, ) Heart: Regular rate Lungs: Wheezing Abdomen: Normal bowel sounds Extremities: No clubbing, Other (1+ edema ) Skin: No breakdown, No significant lesion Assessment and Plan Assessmemt and Plan Problems Medical Problems: (1) Altered mental status Status: Acute (2) Bradycardia Status: Acute (3) Chest pain Status: Acute (4) Hypotension Status: Acute Comment Review of Relevant I have reviewed the following items christos (where applicable) has been applied. Medications: Current Medications Medications (Trade) Dose Ordered Sig/Benny Route PRN Reason Start Time Stop Time Status Last Admin Dose Admin Levothyroxine Sodium (Synthroid) 200 mcg DAILY06 PO 04/07/21 06:00 04/07/21 06:15 Justifications for Admission Other Justification NUBIA NOBLES MD Apr 07, 2021 14:22
[2021-04-07 15:00] VITALS: BP 135/68
[2021-04-07 19:30] VITALS: BP 129/71
[2021-04-07 23:00] VITALS: BP 137/63
[2021-04-08 03:30] VITALS: BP 137/76
[2021-04-08] MEDS: LEVOTHYROXINE 175 MCG TABLET PO SCH (06:13)
[2021-04-08 07:00] VITALS: BP 129/72
[2021-04-08] MEDS: ASPIRIN ENTERIC COATED 81 MG TABLET.DR. PO SCH (08:41)
[2021-04-08] MEDS: FAMOTIDINE 20 MG TABLET. PO SCH (08:41)
[2021-04-08] MEDS: POLYETHYLENE GLYCOL 3350 17 GM PACKET. PO SCH (08:41)
[2021-04-08] MEDS: CETIRIZINE HCL 10 MG TABLET. PO SCH (08:41)
[2021-04-08] MEDS: SENNOSIDES/DOCUSATE 8.6/50MG TABLET. PO SCH (08:41)
[2021-04-08] MEDS: HEPARIN for SUB-Q USE 5,000 UNIT/ML VIAL. SQ SCH (08:42)
[2021-04-08] MEDS ORDERED: LEVO175T5 PO (09:39)
[2021-04-08] MEDS ORDERED: DOXY-181 PO (09:39)
--- NOTE | 2021-04-08 09:40 | SNU/HH DC ---
DISCHARGE ORDERS DISCHARGE INFORMATION: DISCHARGE DATE: Apr 08, 2021 FINAL DIAGNOSIS Problems Medical Problems: (1) Altered mental status Status: Acute (2) Bradycardia Status: Acute (3) Chest pain Status: Acute (4) Hypotension Status: Acute CONDITION ON DISCHARGE: Stable CODE STATUS: Code Status: DNR/DNI POST DISCHARGE ORDERS: ACTIVITY ORDERS: No restrictions, Activity as tolerated WEIGHT BEARING STATUS: No restrictions, As tolerated DIET AFTER DISCHARGE: Regular WOUND/INCISION CARE: Keep wound/cast CDI CHECKS AFTER DISCHARGE: CHECKS AFTER DISCHARGE: Check blood press - daily, Check your Temp as needed TREATMENT/EQUIPMENT ORDERS: Physical Therapy For: Evalulation/Treatment Occupational Therapy For: Evaluation/Treatment DISCHARGE MEDICATIONS: Home Meds Active Scripts Doxycycline Monohydrate (DOXYCYCLINE MONOHYDRATE) 100 Mg Capsule, 1 CAP PO BID for Bronchitis for 2 Days, #4 CAP Prov:ADAMA EARLY MD 04/08/21 Levothyroxine Sodium (LEVOTHYROXINE SODIUM) 175 Mcg Tablet, 200 MCG PO DAILY06 for Hypothyroidism for 30 Days, #35 TAB 5 Refills Prov:ADAMA EARLY MD 04/08/21 Reported Medications Magnesium Hydroxide (MILK OF MAGNESIA) 2,400 Mg/10 Ml Oral.susp, 2400 MG PO DAILY PRN for CONSTIPATION, MISC 04/06/21 Acetaminophen (ACETAMINOPHEN) 325 Mg Tablet, 650 MG PO Q4HRS PRN for general discomfort, TAB 04/06/21 Docusate Sodium (DOCUSATE SODIUM) 100 Mg Capsule, 100 MG PO DAILY for CONST IPATION, CAP 04/06/21 Sennosides (SENNA LAXATIVE) 8.6 Mg Tablet, 2 TAB PO QHS for constipation for 30 Days, #60 TAB 0 Refills 12/18/20 Carboxymethylcellulos/Glycerin (REFRESH OPTIVE EYE DROPS) 15 Ml Drops, 1 DROP E ACHEYE BID for dry eyes, #30 ML 6 Refills 12/18/20 Polyethylene Glycol 3350 (MIRALAX) 17 Gm Powd.pack, 1 PACKET PO DAILY for constipation for 2 Days, #2 PACKET 0 Refills dissolve in water 12/18/20 Melatonin (Melatonin) 3 Mg Capsule, 3 MG PO QHS for insomnia, CAP 12/18/20 Famotidine (FAMOTIDINE) 20 Mg Tablet, 20 MG PO BID for gerd, TAB 12/18/20 Loratadine (LORATADINE) 10 Mg Tablet, 1 TAB PO DAILY for allergies, #30 TAB 5 Refills 12/18/20 Multivitamin With Minerals (DAILY VITAMIN FORMULA-MINERALS) 1 Each Tablet, 1 TAB PO DAILY for supplement for 30 Days, #30 TAB 0 Refills 12/18/20 Aspirin (ASPIR 81) 81 Mg Tablet.dr, 81 MG PO DAILY, TAB 07/13/13 Discontinued Reported Medications Levothyroxine Sodium (LEVOTHYROXINE SODIUM) 175 Mcg Tablet, 1 TAB PO DAILY for thyriod 12/17/20 Discontinued Scripts Levofloxacin (LEVOFLOXACIN) 500 Mg Tablet, 500 MG PO DAILY06 for Pseudomonas UTI for 10 Days, #10 TAB Prov:ADAMA EARLY MD 12/21/20 ADAMA EARLY MD Apr 08, 2021 09:40
--- NOTE | 2021-04-08 09:52 | PDOC ---
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 QTc 460. Stop amio, hold Eliquis for falls lethargy and confusion, better hypotension, resolved hypothyroidism, level high, will go up on synthroid on d/c dementia w/ some baseline aphasia multiple myeloma FEN - Regular diet PPX - heparin CODE - DNR/DNI Dispo - inpatient History of Present Illness History of Present Illness Mr Coronado is an 89 year old male with past medical history CVA with aphasia, communication deficit, right-sided weakness, hypothyroidism, atrial flutter, HTN, HLD, anemia, GERD, multiple myeloma, who presents from [facility] after an episode of altered level of consciousness and hypotension at his SNF, facility blood pressures were 60s systolic. Patient is now more responsive with blood pressures in the 90s systolic. 04/06: Talked to his son, Mayco by phone, wishes for continued SNF care on d/c 04/07: cont PT and OT. much improved, talkative and eating, 04/08: Seen eating breakfast, up with assist, tried to walk with a walker, the report had been that he was wheelchair bound, but there may be some room for improvement. He has no complaints. D/w son, Mayco. Vitals/I&O Vitals/I&O: Vital Signs Date Time Temp Pulse Resp B/P (MAP) Pulse Ox O2 Delivery O2 Flow Rate FiO2 04/08/21 07:00 98.3 51 18 129/72 (91) 94 Room Air 98.3 I & O 04/07/21 04/07/21 04/08/21 15:00 23:00 07:00 Intake Total 240 ml 0 ml 150 ml Output Total 250 ml Balance 240 ml -250 ml 150 ml Physical Exam General: Alert, Cooperative, No acute distress, Other (not orienetd, but does recall breakfast, ) Heart: Regular rate Lungs: Wheezing Abdomen: Normal bowel sounds Extremities: No clubbing, Other (1+ edema ) Skin: No breakdown, No significant lesion Assessment and Plan Assessmemt and Plan Problems Medical Problems: (1) Altered mental status Status: Acute (2) Bradycardia Status: Acute (3) Chest pain Status: Acute (4) Hypotension Status: Acute Comment Review of Relevant I have reviewed the following items christos (where applicable) has been applied. Justifications for Admission Other Justification ADAMA EARLY MD Apr 08, 2021 09:52
--- NOTE | 2021-04-08 09:59 | PDOC3 ---
Discharge Summary Visit Information Date of Admission: Apr 05, 2021 Date of Discharge: Apr 08, 2021 Admitting Diagnosis: Altered mental status Final Diagnosis Problems Medical Problems: (1) Altered mental status Status: Acute (2) Bradycardia Status: Acute (3) Chest pain Status: Acute (4) Hypotension Status: Acute Brief Hospital Course Allergies Allergies Coded Allergies Type Severity Reaction Last Updated Verified No Known Drug Allergies 07/13/13 No Vital Signs Vital Signs Date Time Temp Pulse Resp B/P (MAP) Pulse Ox O2 Delivery O2 Flow Rate FiO2 04/08/21 07:00 98.3 51 18 129/72 (91) 94 Room Air 98.3 Brief Hospital Course Mr Coronado is an 89 year old male with past medical history CVA with aphasia, communication deficit, right-sided weakness, hypothyroidism, atrial flutter, HTN, HLD, anemia, GERD, multiple myeloma, who presents from [facility] after an episode of altered level of consciousness and hypotension at his SNF, facility blood pressures were 60s systolic. Patient is now more responsive with blood pressures in the 90s systolic. 04/06: Talked to his son, Mayco by phone, wishes for continued SNF care on d/c 04/07: cont PT and OT. much improved, talkative and eating, 04/08: Seen eating breakfast, up with assist, tried to walk with a walker, the report had been that he was wheelchair bound, but there may be some room for improvement. He has no complaints. D/w son, Mayco. Will need to take his levothyroxine. 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 QTc 460. Stop amio, hold Eliquis for falls lethargy and confusion, better hypotension, resolved hypothyroidism, level high, will go up on synthroid on d/c dementia w/ some baseline aphasia multiple myeloma Greater than 30 minutes spent on d/c to SNF Discharge Information Condition at Discharge: Improved Follow Up: Weeks (1) Disposition/Orders: D/C to Another Facility ([facility]) Scheduled Aspirin (Aspir 81) 81 Mg Tablet., 81 MG PO DAILY, (Reported) Entered as Reported by: NAMRATA HERNANDEZ on 07/13/13 3407 Last Action: Continued on 04/05/211824 by ADAMA RASMUSSEN MD Carboxymethylcellulos/Glycerin (Refresh Optive Eye Drops) 15 Ml Drops, 1 DROP EACHEYE BID for dry eyes, #30 Ref 6 (Reported) Entered as Reported by: KHRIS RIOJAS on 12/18/20999 Last Action: HELD on 04/05/211824 by ADAMA RASMUSSEN MD Docusate Sodium (Docusate Sodium) 100 Mg Capsule, 100 MG PO DAILY for CONSTIPATION, (Reported) Entered as Reported by: XENIA LÓPEZ RN on 04/06/21434 Last Action: New Order on 04/06/21434 by XENIA LÓPEZ RN Doxycycline Monohydrate (Doxycycline Monohydrate) 100 Mg Capsule, 1 CAP PO BID for Bronchitis for 2 Days, #4 Prescribed by: ADAMA EARLY MD on 04/08/21938 Famotidine (Famotidine) 20 Mg Tablet, 20 MG PO BID for gerd, (Reported) Entered as Reported by: KHRIS RIOJAS on 12/18/20999 Last Action: Continued on 04/05/211824 by ADAMA RASMUSSEN MD Levothyroxine Sodium (Levothyroxine Sodium) 175 Mcg Tablet, 200 MCG PO DAILY06 for Hypothyroidism for 30 Days, #35 Ref 5 Prescribed by: ADAMA EARLY MD on 04/08/21938 Loratadine (Loratadine) 10 Mg Tablet, 1 TAB PO DAILY for allergies, #30 Ref 5 (Reported) Entered as Reported by: KHRIS RIOJAS on 12/18/20999 Last Action: Converted on 04/05/211824 by ADAMA RASMUSSEN MD Melatonin (Melatonin) 3 Mg Capsule, 3 MG PO QHS for insomnia, (Reported) Entered as Reported by: KHRIS RIOJAS on 12/18/20999 Last Action: HELD on 04/05/211824 by ADAMA RASMUSSEN MD Multivitamin With Minerals (Daily Vitamin Formula-Minerals) 1 Each Tablet, 1 TAB PO DAILY for supplement for 30 Days, #30 Ref 0 (Reported) Entered as Reported by: KHRIS RIOJAS on 12/18/20999 Last Action: HELD on 04/05/211824 by ADAMA RASMUSSEN MD Polyethylene Glycol 3350 (Miralax) 17 Gm Powd.pack, 1 PACKET PO DAILY for constipation for 2 Days, #2 Ref 0 (Reported) dissolve in water Entered as Reported by: KHRIS RIOJAS on 12/18/20999 Last Action: Continued on 04/05/211824 by ADAMA RASMUSSEN MD Sennosides (Senna Laxative) 8.6 Mg Tablet, 2 TAB PO QHS for constipation for 30 Days, #60 Ref 0 (Reported) Entered as Reported by: KHRIS RIOJAS on 12/18/20 1000 Last Action: HELD on 04/05/211824 by ADAMA RASMUSSEN MD Scheduled PRN Acetaminophen (Acetaminophen) 325 Mg Tablet, 650 MG PO Q4HRS PRN for general discomfort, (Reported) Entered as Reported by: XENIA LÓPEZ RN on 04/06/21434 Last Action: New Order on 04/06/21434 by XENIA LÓPEZ RN Magnesium Hydroxide (Milk Of Magnesia) 2,400 Mg/10 Ml Oral.susp, 2,400 MG PO DAILY PRN for CONSTIPATION, (Reported) Entered as Reported by: XENIA LÓPEZ RN on 04/06/21434 Last Action: New Order on 04/06/21434 by XENIA LÓPEZ RN Discontinued Medications Levofloxacin (Levofloxacin) 500 Mg Tablet, 500 MG PO DAILY06 for Pseudomonas UTI for 10 Days, #10 Prescribed by: ADAMA EARLY MD on 12/21/20 1120 Last Action: HELD on 04/05/211824 by ADAMA RASMUSSEN MD Levothyroxine Sodium (Levothyroxine Sodium) 175 Mcg Tablet, 1 TAB PO DAILY for thyriod, (Reported) Entered as Reported by: LETTY JEAN on 12/17/202157 Last Action: Continued on 04/05/211824 by ADAMA RASMUSSEN MD Justicifation of Admission Dx: Justifications for Admission: Justification of Admission Dx: Yes Chronic Renal Failure: Metabolic Abnormality ADAMA EARLY MD Apr 08, 2021 09:59
[2021-04-08 11:00] VITALS: BP 165/71
[2021-04-08] MEDS: cefTRIAXone IV Push 1 GM VIAL. IVP SCH (13:30)
--- NOTE | 2021-04-08 15:57 | NUR ---
Discharge Note: PT DISCHARGED TO [facility]. PT LEFT FACILITY VIA [facility] AT 1600. PT STABLE AND ALERT UPON DISCHARGE. PT PIV REMOVED FROM R AC WITHOUT COMPLICATIONS, BANDAGE APPLIED. REPORT CALLED TO JORGE AT [facility] AT 1530. NO CONCERNS VOICED AT THIS TIME. PT LEFT WITH ALL PERSONAL BELONINGS. [facility] Discharge instructions and discharge home medications reviewed with Patient and a copy given. All questions have been answered and understanding verbalized.
== END 2021-04-08 16:00 | DRG 70 ==
LOC: ER 15:02 → 5 SOUTH 17:12
PROVIDERS: ADMIT Student in an Organized Health Care Education/Training Program; ATTEND Student in an Organized Health Care Education/Training Program
DX: G93.41 Metabolic encephalopathy (principal); N17.0 Acute kidney failure with tubular necrosis; C90.00 Multiple myeloma not having achieved remission; I95.9 Hypotension, unspecified; G93.40 Encephalopathy, unspecified; D64.9 Anemia, unspecified; E03.9 Hypothyroidism, unspecified; E78.00 Pure hypercholesterolemia, unspecified; E78.5 Hyperlipidemia, unspecified; F03.90 Unspecified dementia, unspecified severity, without behavioral disturbance, psychotic disturbance, mood disturbance, and anxiety; I10 Essential (primary) hypertension; I48.0 Paroxysmal atrial fibrillation; I69.320 Aphasia following cerebral infarction; I77.810 Thoracic aortic ectasia; J84.10 Pulmonary fibrosis, unspecified; K22.9 Disease of esophagus, unspecified; Z66 Do not resuscitate; Z99.3 Dependence on wheelchair; K21.9 Gastro-esophageal reflux disease without esophagitis
CPT/HCPCS: 36415; 70450; 71045; 71275; 80053; 81001; 83605; 84443; 84484; 85025; 85379; 87040; 87426; 93005; 93971; 96361; 96374; J0696; J1644; J7120; Q9967; U0003; U0005; 97110-GP; 97116-GP; 97535-GO; 99285-25; G0378